=== PATIENT | male | born 1945 | race Caucasian/White ===

== ENCOUNTER 2023-09-08 11:30 | Emergency (ER) | payer MEDICARE, OTHER, SELFPAY ==
[2023-09-08 11:32] VITALS: BP 142/88
[2023-09-08 14:22] VITALS: BMI 29.3
[2023-09-08 15:00] VITALS: BP 142/83
[2023-09-08 15:15] LABS: % Basophils 0.3 % (0-2); % Immature Granulocytes 0.5 % (0-0.5); % Monocytes 8.6 % (1.7-9.3); % Neutrophils 74.6 % (42.2-75.2); Absolute Lymphocytes 1.3 10^3/uL (1.2-3.4); Absolute Monocytes 0.7 10^3/uL (0.1-0.6); Hematocrit 39.7 % (39.0-52.0); Hemoglobin 13.6 g/dL (13.0-18.0); Mean Corp Hgb Conc. 34.3 g/dL (33.0-37.0); Mean Corpuscular Volume 96.4 fL (80.0-94.0); Mean Platelet Volume 11.3 fL (7.4-10.4); Nucleated Red Blood Cells % 0 % (-); Platelet Count 238 10^3/uL (130-400); Red Blood Cell Count 4.12 10^6/uL (4.70-6.10); Red Cell Dist. Width 13.4 % (11.5-14.5)
--- NOTE | 2023-09-08 15:22 | ED.MUSCINJ ---
HPI-Injury
General
Chief Complaint: Musculo-Skeletal Complaint
Source: patient
Exam Limitations: none
Time Seen by Provider: 09/08/23 15:05
Travel History
Have you had any contact with someone who has COVID-19?: No
Do you have any symptoms of coronavirus? Fever > 100 degrees, chills, cough, shortness of breath, sore throat, loss of taste or smell, muscle aches, or headache?: No
History of Present Illness-Injury
Initial Injury comments:
77-year-old male on a baby aspirin presents complaining of right chest wall pain and referral from the urgent care. He fell early this morning in the bathroom and hit his right chest wall and the toilet. He notes pain to the right side worse with
deep breathing. He notes he is slightly short of breath. He was diagnosed with multiple rib fractures at the urgent care and was sent here for further evaluation. No abdominal pain. No hematuria. He did not hit his head. No other complaints at
this time
Past History
Past History
ED Past Medical History: Asthma, NIDDM and Psychiatric
ED Past Surgical History: Appendectomy, Cardiac (pacemaker) and Cholecystectomy
Social History
Tobacco: Former smoker
Alcohol: None
Drug: None
Personal:
Living: with family
Employment: Retired
Family History
Family History: Other
Phy Exam
Physical Exam
Physical Exam:
General: Well-appearing male no acute respiratory distress
HEENT: Normocephalic atraumatic neck is supple
Heart: Regular rate and rhythm no murmurs
Lungs: Breath sounds heard throughout slightly diminished on the right than the left
Extremities: No cyanosis or edema
Skin: Warm no rash
Injury Course
Orders/Labs/Results
Orders:
Orders
09/08/23 15:03
Complete Blood Count/With Diff Urgent
Comprehensive Metabolic Panel Urgent
Prothrombin Time Urgent
09/08/23 15:21
CT Chest With Iv Contrast Urgent
Comment:
Reason For Exam: right rib fractures
0.9% Sodium Chloride 500 ml [Nss] 500 ml IV BOLUS
Ketorolac [Toradol] 15 mg IV NOW STA
Abnormal Lab Results
09/08/23
15:03
RBC 4.12 L 10^6/uL
(4.70-6.10)
MCV 96.4 H fL
(80.0-94.0)
MCH 33.0 H pg
(27.0-31.0)
MPV 11.3 H fL
(7.4-10.4)
Absolute Monos (auto) 0.7 H 10^3/uL
(0.1-0.6)
Lymphocytes % 16.0 L %
(20.5-51.1)
BUN 21 H mg/dl
(9-20)
Glucose 154 H mg/dl
(70-99)
Total Protein 8.9 H g/dl
(6.3-8.2)
09/08/23 15:03
09/08/23 15:03
MDM/Problems Addressed
Differential Diagnosis Includes:
Right chest wall pain after a fall. I have visualized x-rays from the urgent care which demonstrate what looks like to mildly displaced rib fractures. No obvious pneumothorax on the x-rays. Concern for possible underlying injury such as
pneumothorax liver or kidney injury. Will obtain chest CT scan with IV contrast. Patient is in considerable pain. Will start with Toradol for pain relief.
*Critical Care Note
Total Time (30-74mins, 75-104mins- exclusive of procedures): Not Applicable
Update Note
Update Note:
CT scan of the chest was performed and demonstrates fractures of the seventh eighth ninth 10th and 11th ribs on the right side. No associated pneumothorax. Patient is walker dependent and is in considerable pain. Recommend keeping in hospital for
pain control and physical therapy however will have to be transferred to trauma center. Call placed to [facility]
6:13 PM. Spoke with trauma surgeon Dr. Melton who accepted the patient to [facility]'s ICU. Will arrange for transport
ED Attending Note
-
Portions of this chart may have been created with voice recognition software.� Occasional wrong word or��sound alike� substitutions may have occurred due to the inherent limitations of voice recognition software.
Discharge Plan
Departure
Patient Disposition: Acute Care Hospital
Date of Disposition: 09/08/23
Time of Disposition: 18:14
Discharge Problem:
Fracture, ribs
Prescriptions:
No Action
albuterol sulfate 2.5 MG/3 ML solution for nebulization
2.5 mg inhalation BID
olanzapine 5 MG tablet
5 mg PO HS
levothyroxine 75 MCG tablet
75 mcg PO DAILY
galantamine 8 MG tablet
8 mg PO BID
fluticasone propion-salmeterol [Advair HFA] 1 PUFF HFA aerosol inhaler
2 puff inhalation R BID
omega-3 fatty acids-fish oil 1 EACH capsule
1 ea PO DAILY
venlafaxine [Effexor XR] 37.5 MG capsule,extended release 24hr
75 mg PO HS
venlafaxine [Effexor XR] 150 MG capsule,extended release 24hr
150 mg PO DAILY
bupropion HCl 100 MG tablet sustained-release 12 hr
100 mg PO DAILY
diltiazem HCl 120 MG capsule,extended release 24hr
120 mg PO DAILY
Patient Comments:
hold for pulse less than 60, sbp<110
fludrocortisone 0.1 MG tablet
0.1 mg PO BID
lamotrigine 100 MG tablet
200 mg PO HS
lamotrigine 100 MG tablet
100 mg PO DAILY
rosuvastatin 10 MG tablet
10 mg PO DAILY
docusate sodium 100 MG capsule
200 mg PO DAILY@1999
albuterol sulfate 1 PUFF HFA aerosol inhaler
2 puff inhalation R Q4HPRN PRN (Reason: sob/wheezing)
meclizine 25 MG tablet
25 mg PO Q8HPRN PRN (Reason: vertigo) Qty: 0 0RF
Rx Instructions:
do not take more than 1 tablet q 8 hours
magnesium hydroxide 30 ML suspension
30 ml PO DAILYPRN PRN (Reason: on 3rd day if no bm)
clonazepam 0.5 MG tablet
0.5 mg PO HS
midodrine 5 MG tablet
5 mg PO BID@0800,1700
tamsulosin 0.4 MG capsule
0.4 mg PO DAILY Qty: 30 0RF
aspirin 81 MG tablet,chewable
81 mg PO DAILY 0RF
polyethylene glycol 3350 17 GRAMS powder in packet
17 grams PO DAILY Qty: 30 0RF
Referrals:
Peyman Moore, [Family Provider] -
Hospital Transfer
Other hospital: [facility]
I certify that the patient requires transfer: Yes
Discussed case with accepting physician: Dr. Melton
Reason for transfer: higher level of care and availability of service
Interventions
Interventions:
*Risk Screen - Suicide Last Done: 09/08/23 11:32
*General Assessment Last Done: 09/08/23 11:32
*Neglect/Abuse Screening Last Done: 09/08/23 11:32
*ED COVID-19 Vaccine History Last Done: 09/08/23 14:22
ED-Musculoskeletal Assessment Last Done: 09/08/23 14:24
[2023-09-08 15:23] LABS: INR 0.99; PT 13.1 Sec (11.4-14.6)
[2023-09-08 15:26] LABS: ALT (SGPT) 26 U/L (0-50); AST (SGOT) 44 U/L (17-59); Albumin 4.3 g/dl (3.5-5.0); Alkaline Phosphatase 85 U/L (38-126); Blood Urea Nitrogen 21 mg/dl (9-20); Calcium 10.1 mg/dl (8.4-10.2); Carbon Dioxide 29 mmol/L (22-30); Chloride 99 mmol/L (98-107); Estimated Creatinine Clearance 66 ml/min; Glucose 154 mg/dl (70-99); Potassium 5.1 mmol/L (3.5-5.1); Sodium 138 mmol/L (135-145); Total Bilirubin 0.6 mg/dl (0.2-1.3); Total Protein 8.9 g/dl (6.3-8.2); eGFR > 60.00
[2023-09-08] MEDS: TORADOL 15 MG IV (15:33)
[2023-09-08] MEDS: NSS 500 IV (15:34)
[2023-09-08 17:00] VITALS: BP 143/81
[2023-09-08 18:00] VITALS: BP 153/80
== END 2023-09-08 18:53 | disposition short-term general hospital (02) ==
LOC: EMR 11:30
PROVIDERS: EMERGENCY PHYSICIAN Emergency Medicine; FAMILY PHYSICIAN Family Medicine
DX: S22.41XA Multiple fractures of ribs, right side, initial encounter for closed fracture (principal); W19.XXXA Unspecified fall, initial encounter; Z87.891 Personal history of nicotine dependence
CPT/HCPCS: 99285; 96374; 96361; 71260; 80053; 85025; 85610; Q9967

== ENCOUNTER → 2023-10-20 07:29 | Outpatient (REF) | payer MEDICARE, OTHER, SELFPAY ==
[2023-10-20 08:49] LABS: % Basophils 0.5 % (0-2); % Eosinophils 1.1 % (0-6); % Lymphocytes 46.9 % (20.5-51.1); % Monocytes 8.6 % (1.7-9.3); % Neutrophils 42.9 % (42.2-75.2); Absolute Eosinophils 0.1 10^3/uL (0-0.7); Absolute Lymphocytes 2.1 10^3/uL (1.2-3.4); Absolute Monocytes 0.4 10^3/uL (0.1-0.6); Absolute Neutrophils 1.9 10^3/uL (1.4-6.5); Hemoglobin 13.6 g/dL (13.0-18.0); Mean Corp Hgb Conc. 32.4 g/dL (33.0-37.0); Mean Corpuscular Hgb 32.3 pg (27.0-31.0); Mean Corpuscular Volume 99.8 fL (80.0-94.0); Nucleated Red Blood Cells % 0 % (-); Platelet Count 209 10^3/uL (130-400); Red Blood Cell Count 4.21 10^6/uL (4.70-6.10); Red Cell Dist. Width 13.3 % (11.5-14.5); White Blood Cell Count 4.4 10^3/uL (4.8-10.8)
[2023-10-20 09:13] LABS: ALT (SGPT) 20 U/L (0-50); AST (SGOT) 28 U/L (17-59); Albumin 4.6 g/dl (3.5-5.0); Alkaline Phosphatase 127 U/L (38-126); Blood Urea Nitrogen 20 mg/dl (9-20); Calcium 9.7 mg/dl (8.4-10.2); Carbon Dioxide 23 mmol/L (22-30); Chloride 104 mmol/L (98-107); Glucose 153 mg/dl (70-99); HDL Cholesterol 56 mg/dl; LDL Cholesterol, Calculated 87 mg/dl; Potassium 4.6 mmol/L (3.5-5.1); Sodium 138 mmol/L (135-145); Total Bilirubin 0.5 mg/dl (0.2-1.3); Total Cholesterol 179 mg/dl (50-199); Triglyceride 184 mg/dl (10-149); Very Low Density Lipoprotein 36 mg/dl (0-30); eGFR > 60.00
[2023-10-20 09:22] LABS: Free T4 1.31 ng/dl (0.78-2.19)
[2023-10-20 09:37] LABS: TSH 3.37 uIU/ml (0.47-4.68)
[2023-10-20 11:13] LABS: Glycohemoglobin (HgbA1c) 6.1 % (4.0-5.6)
[2023-10-20 11:48] LABS: Urine Albumin Negative (Neg - Trace); Urine Bilirubin Negative (Negative); Urine Character Clear (Clear); Urine Color Yellow; Urine Glucose Negative (Negative); Urine Ketone Negative (Negative); Urine Leukocyte Trace (Negative); Urine Nitrite Negative (Negative); Urine Occult Blood Negative (Negative); Urine Specific Gravity 1.015 (<1.030); Urine Urobilinogen Negative (Neg - 1+)
[2023-10-20 11:56] LABS: Urine Bacteria Few (Negative); Urine Red Blood Cell 0-2 /HPF (0-2); Urine Squamous Cell 0-2 /LPF (Few); Urine White Cell 0-2 /HPF (0-5)
[2023-10-20 12:12] LABS: Microalbumin, Random Urine 2.1 mg/dl (0.6-1.7); Microalbumin/creatinine Ratio 18.6 mg/g
== END ==
LOC: HWLAB 07:29
PROVIDERS: ATTENDING PHYSICIAN Internal Medicine Cardiovascular Disease; FAMILY PHYSICIAN Family Medicine; REFERRING PHYSICIAN Psychiatry & Neurology Neurology
DX: E11.69 Type 2 diabetes mellitus with other specified complication (principal); E03.9 Hypothyroidism, unspecified; E78.00 Pure hypercholesterolemia, unspecified; G61.81 Chronic inflammatory demyelinating polyneuritis
CPT/HCPCS: 36415; 80053; 80061; 81003; 81015; 82043; 82570; 83036; 84439; 84443; 85025

== ENCOUNTER → 2024-01-05 10:51 | Outpatient (REF) | payer MEDICARE, OTHER, SELFPAY ==
[2024-01-05 15:40] LABS: % Basophils 0.5 % (0-2); % Eosinophils 0.2 % (0-6); % Immature Granulocytes 0.2 % (0-0.5); % Lymphocytes 49.6 % (20.5-51.1); % Monocytes 13.7 % (1.7-9.3); % Neutrophils 35.8 % (42.2-75.2); Absolute Monocytes 0.6 10^3/uL (0.1-0.6); Absolute Neutrophils 1.4 10^3/uL (1.4-6.5); Hematocrit 36.7 % (39.0-52.0); Hemoglobin 12.1 g/dL (13.0-18.0); Mean Corpuscular Hgb 31.9 pg (27.0-31.0); Mean Corpuscular Volume 96.8 fL (80.0-94.0); Mean Platelet Volume 11.1 fL (7.4-10.4); Nucleated Red Blood Cells % 0 % (-); Platelet Count 192 10^3/uL (130-400); Red Blood Cell Count 3.79 10^6/uL (4.70-6.10); Red Cell Dist. Width 13.5 % (11.5-14.5)
[2024-01-05 16:07] LABS: ALT (SGPT) 21 U/L (0-50); AST (SGOT) 31 U/L (17-59); Albumin 4.2 g/dl (3.5-5.0); Alkaline Phosphatase 83 U/L (38-126); Blood Urea Nitrogen 19 mg/dl (9-20); Calcium 9.7 mg/dl (8.4-10.2); Carbon Dioxide 27 mmol/L (22-30); Chloride 102 mmol/L (98-107); Glucose 119 mg/dl (70-99); Potassium 4.6 mmol/L (3.5-5.1); Sodium 138 mmol/L (135-145); Total Bilirubin 0.3 mg/dl (0.2-1.3); eGFR > 60.00
== END ==
LOC: HWLAB 10:51
PROVIDERS: ATTENDING PHYSICIAN Psychiatry & Neurology Neurology; FAMILY PHYSICIAN Family Medicine
DX: G61.81 Chronic inflammatory demyelinating polyneuritis (principal)
CPT/HCPCS: 36415; 80053; 85025

== ENCOUNTER → 2024-02-17 10:57 | Outpatient (REF) | payer MEDICARE, OTHER, SELFPAY ==
[2024-02-17 12:22] LABS: % Basophils 0.2 % (0-2); % Eosinophils 0.4 % (0-6); % Immature Granulocytes 0.4 % (0-0.5); % Lymphocytes 42.8 % (20.5-51.1); % Monocytes 10.1 % (1.7-9.3); % Neutrophils 46.1 % (42.2-75.2); Absolute Lymphocytes 2.2 10^3/uL (1.2-3.4); Absolute Monocytes 0.5 10^3/uL (0.1-0.6); Absolute Neutrophils 2.3 10^3/uL (1.4-6.5); Hematocrit 36.1 % (39.0-52.0); Hemoglobin 11.9 g/dL (13.0-18.0); Mean Platelet Volume 10.5 fL (7.4-10.4); Nucleated Red Blood Cells % 0 % (-); Platelet Count 326 10^3/uL (130-400); Red Blood Cell Count 3.72 10^6/uL (4.70-6.10); Red Cell Dist. Width 15.2 % (11.5-14.5); White Blood Cell Count 5.1 10^3/uL (4.8-10.8)
[2024-02-17 14:08] LABS: ALT (SGPT) 18 U/L (0-50); AST (SGOT) 27 U/L (17-59); Albumin 4.1 g/dl (3.5-5.0); Alkaline Phosphatase 103 U/L (38-126); Blood Urea Nitrogen 14 mg/dl (9-20); Calcium 9.6 mg/dl (8.4-10.2); Carbon Dioxide 26 mmol/L (22-30); Chloride 101 mmol/L (98-107); Glucose 106 mg/dl (70-99); Potassium 4.5 mmol/L (3.5-5.1); Sodium 136 mmol/L (135-145); Total Bilirubin 0.3 mg/dl (0.2-1.3); Total Protein 7.6 g/dl (6.3-8.2); eGFR > 60.00
== END ==
LOC: HWLAB 10:57
PROVIDERS: ATTENDING PHYSICIAN Psychiatry & Neurology Neurology; FAMILY PHYSICIAN Family Medicine
DX: G61.81 Chronic inflammatory demyelinating polyneuritis (principal)
CPT/HCPCS: 36415; 80053; 85025

== ENCOUNTER → 2024-02-23 09:27 | Outpatient (REF) | payer MEDICARE, OTHER, SELFPAY ==
[2024-02-23 12:12] LABS: Urine Albumin 1+ (Neg - Trace); Urine Bilirubin Negative (Negative); Urine Character Very Cloudy (Clear); Urine Color Yellow; Urine Glucose Negative (Negative); Urine Ketone Negative (Negative); Urine Leukocyte 2+ (Negative); Urine Nitrite Negative (Negative); Urine Occult Blood 4+ (Negative); Urine Specific Gravity 1.025 (<1.030); Urine Urobilinogen Negative (Neg - 1+)
[2024-02-23 12:55] LABS: Urine Bacteria Many (Negative); Urine Red Blood Cell >100 /HPF (0-2); Urine Squamous Cell 0-2 /LPF (Few); Urine White Cell >100 /HPF (0-5)
== END ==
LOC: HWLAB 09:27
PROVIDERS: ATTENDING PHYSICIAN Urology; FAMILY PHYSICIAN Family Medicine
DX: N39.0 Urinary tract infection, site not specified (principal)
CPT/HCPCS: 36415; 81003; 81015; 87077; 87086; 87186

== ENCOUNTER → 2024-03-17 13:05 | Outpatient (REF) | payer MEDICARE, OTHER, SELFPAY ==
[2024-03-17 16:11] LABS: % Basophils 0.4 % (0-2); % Immature Granulocytes 0.4 % (0-0.5); % Lymphocytes 46.5 % (20.5-51.1); % Monocytes 13.5 % (1.7-9.3); % Neutrophils 38.2 % (42.2-75.2); Absolute Eosinophils 0.1 10^3/uL (0-0.7); Absolute Lymphocytes 2.2 10^3/uL (1.2-3.4); Absolute Monocytes 0.7 10^3/uL (0.1-0.6); Absolute Neutrophils 1.8 10^3/uL (1.4-6.5); Hematocrit 35.6 % (39.0-52.0); Hemoglobin 11.8 g/dL (13.0-18.0); Mean Corp Hgb Conc. 33.1 g/dL (33.0-37.0); Mean Corpuscular Hgb 32.3 pg (27.0-31.0); Mean Corpuscular Volume 97.5 fL (80.0-94.0); Mean Platelet Volume 11.2 fL (7.4-10.4); Nucleated Red Blood Cells % 0 % (-); Platelet Count 278 10^3/uL (130-400); Red Blood Cell Count 3.65 10^6/uL (4.70-6.10); White Blood Cell Count 4.8 10^3/uL (4.8-10.8)
[2024-03-17 16:22] LABS: ALT (SGPT) 21 U/L (0-50); AST (SGOT) 31 U/L (17-59); Albumin 4.1 g/dl (3.5-5.0); Alkaline Phosphatase 96 U/L (38-126); Blood Urea Nitrogen 15 mg/dl (9-20); Calcium 9.8 mg/dl (8.4-10.2); Carbon Dioxide 25 mmol/L (22-30); Chloride 100 mmol/L (98-107); Glucose 102 mg/dl (70-99); Potassium 4.7 mmol/L (3.5-5.1); Sodium 140 mmol/L (135-145); Total Bilirubin 0.3 mg/dl (0.2-1.3); Total Protein 7.7 g/dl (6.3-8.2); eGFR > 60.00
== END ==
LOC: HWLAB 13:05
PROVIDERS: ATTENDING PHYSICIAN Internal Medicine Cardiovascular Disease; FAMILY PHYSICIAN Family Medicine
DX: I44.1 Atrioventricular block, second degree (principal)
CPT/HCPCS: 36415; 80053; 85025

== ENCOUNTER → 2024-05-03 12:17 | Outpatient (REF) | payer MEDICARE, OTHER, SELFPAY ==
[2024-05-03 17:18] LABS: Urine Albumin Negative (Neg - Trace); Urine Bilirubin Negative (Negative); Urine Character Slightly Cloudy (Clear); Urine Color Yellow; Urine Glucose Negative (Negative); Urine Ketone Negative (Negative); Urine Leukocyte 2+ (Negative); Urine Nitrite Negative (Negative); Urine Occult Blood Negative (Negative); Urine Urobilinogen Negative (Neg - 1+)
[2024-05-03 17:41] LABS: Urine Squamous Cell 0-2 /LPF (Few)
[2024-05-03 17:42] LABS: Urine Bacteria Many (Negative); Urine Red Blood Cell 0-2 /HPF (0-2); Urine White Cell 70-80 /HPF (0-5)
== END ==
LOC: HWLAB 12:17
PROVIDERS: ATTENDING PHYSICIAN Urology; FAMILY PHYSICIAN Family Medicine
DX: N39.0 Urinary tract infection, site not specified (principal)
CPT/HCPCS: 81003; 81015; 87077; 87086; 87186

== ENCOUNTER → 2024-06-10 07:39 | Outpatient (REF) | payer MEDICARE, OTHER, SELFPAY ==
[2024-06-10 09:21] LABS: % Basophils 0.3 % (0-2); % Eosinophils 1.1 % (0-6); % Immature Granulocytes 0.5 % (0-0.5); % Lymphocytes 20.3 % (20.5-51.1); % Monocytes 9.7 % (1.7-9.3); % Neutrophils 68.1 % (42.2-75.2); Absolute Eosinophils 0.1 10^3/uL (0-0.7); Absolute Lymphocytes 1.3 10^3/uL (1.2-3.4); Absolute Monocytes 0.6 10^3/uL (0.1-0.6); Absolute Neutrophils 4.5 10^3/uL (1.4-6.5); Hematocrit 35.3 % (39.0-52.0); Hemoglobin 11.6 g/dL (13.0-18.0); Mean Corp Hgb Conc. 32.9 g/dL (33.0-37.0); Mean Corpuscular Hgb 33.1 pg (27.0-31.0); Mean Corpuscular Volume 100.9 fL (80.0-94.0); Mean Platelet Volume 10.3 fL (7.4-10.4); Nucleated Red Blood Cells % 0 % (-); Platelet Count 240 10^3/uL (130-400); Red Cell Dist. Width 15.5 % (11.5-14.5); White Blood Cell Count 6.6 10^3/uL (4.8-10.8)
[2024-06-10 09:27] LABS: Urine Albumin Trace (Neg - Trace); Urine Bilirubin Negative (Negative); Urine Character Clear (Clear); Urine Color Yellow; Urine Glucose Negative (Negative); Urine Ketone Negative (Negative); Urine Leukocyte Negative (Negative); Urine Nitrite Negative (Negative); Urine Occult Blood Negative (Negative); Urine Specific Gravity 1.015 (<1.030); Urine Urobilinogen Negative (Neg - 1+)
[2024-06-10 09:36] LABS: ALT (SGPT) 21 U/L (0-50); AST (SGOT) 25 U/L (17-59); Albumin 4.4 g/dl (3.5-5.0); Alkaline Phosphatase 102 U/L (38-126); Blood Urea Nitrogen 19 mg/dl (9-20); Calcium 9.3 mg/dl (8.4-10.2); Carbon Dioxide 28 mmol/L (22-30); Chloride 102 mmol/L (98-107); Glucose 138 mg/dl (70-99); HDL Cholesterol 58 mg/dl; LDL Cholesterol, Calculated 65 mg/dl; Potassium 4.6 mmol/L (3.5-5.1); Sodium 143 mmol/L (135-145); Total Bilirubin 0.3 mg/dl (0.2-1.3); Total Cholesterol 147 mg/dl (50-199); Total Protein 7.5 g/dl (6.3-8.2); Triglyceride 120 mg/dl (10-149); Very Low Density Lipoprotein 24 mg/dl (0-30); eGFR > 60.00
[2024-06-10 09:53] LABS: Free T4 1.33 ng/dl (0.78-2.19)
[2024-06-10 10:07] LABS: TSH 3.78 uIU/ml (0.47-4.68)
[2024-06-10 10:36] LABS: Microalbumin, Random Urine 1.6 mg/dl (0.6-1.7); Microalbumin/creatinine Ratio 13.4 mg/g
[2024-06-10 11:25] LABS: Glycohemoglobin (HgbA1c) 5.8 % (4.0-5.6)
[2024-06-11 22:20] LABS: Lipoprotein a (Lp a) 126 mg/dL (<=29)
== END ==
LOC: HWLAB 07:39
PROVIDERS: ATTENDING PHYSICIAN Internal Medicine Cardiovascular Disease; FAMILY PHYSICIAN Family Medicine
DX: E78.00 Pure hypercholesterolemia, unspecified (principal); R73.09 Other abnormal glucose; E11.69 Type 2 diabetes mellitus with other specified complication; E03.9 Hypothyroidism, unspecified
CPT/HCPCS: 36415; 80053; 80061; 81003; 82043; 82570; 83036; 83695; 84439; 84443; 85025

== ENCOUNTER → 2024-09-02 10:47 | Outpatient (REF) | payer MEDICARE, OTHER, SELFPAY | LOC: HWRAD 10:47 | PROVIDERS: ATTENDING PHYSICIAN Family Medicine | DX: M54.12 Radiculopathy, cervical region (principal); S46.019A Strain of muscle(s) and tendon(s) of the rotator cuff of unspecified shoulder, initial encounter | CPT/HCPCS: 72125; 73200 ==

== ENCOUNTER 2024-09-16 16:11 | Inpatient (IN) | payer MEDICARE, OTHER, SELFPAY ==
[2024-09-16] VITALS (9 sets, daily range): BP systolic 91–154; BP diastolic 48–63; BMI 30.3; BMI 30.1
--- NOTE | 2024-09-16 13:24 | ED.GENMED ---
History of Present Illness
<Sue Helton PA-C - Last Filed: 09/16/24 19:06>
General
Chief Complaint: Breathing Problem
Source: patient
Exam Limitations: none
Time Seen by Provider: 09/16/24 13:12
History of Present Illness
History of Present Illness:
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 Patient reports intermittent
shaking episodes over the past 4 weeks. He spiked a fever of 101.4 yesterday. He again had a fever this morning and started to feel short of breath. He was hypoxic to 89% for EMS. He also has not urinated today. He denies any other specific
symptoms including chest pain, abdominal pain, vomiting, diarrhea.
Past History
<Sue Helton PA-C - Last Filed: 09/16/24 19:06>
Past History
ED Past Medical History: Asthma, NIDDM and Psychiatric
ED Past Surgical History: Appendectomy, Cardiac (pacemaker) and Cholecystectomy
Social History
Tobacco: Former smoker
Alcohol: None
Drug: None
Personal:
Living: with family
Employment: Retired
Family History
Family History: Other
Phy Exam
<Sue Helton PA-C - Last Filed: 09/16/24 19:06>
General Physical Exam
General Presentation: mild distress
General Skin: warm and dry
General Habitus: elderly
General Mental: alert
General Hydration: dry mucous membranes
ENT Exam
ENT Exam: normocephalic
Cardiovascular Exam
Cardiovascular Exam: regular rate/rhythm
Pulmonary Exam
Pulmonary Exam: no rales, no crackles, no rhonchi and other (Tachypnea with increased WOB noted. RR in the 30s. No wheezing or rales on lung exam.)
Respiratory Effort: tachypnea
Gastrointestinal Exam
Gastrointestinal Exam: non tender, soft and non distended
Neurological Exam
Neurological Exam: alert
Skin Exam
Skin Exam: normal color and warm/dry
Scores
<Sue Helton PA-C - Last Filed: 09/16/24 19:06>
Heart Failure Risk
Heart Failure Risk Score: Not Applicable
Sepsis
<Sue Helton PA-C - Last Filed: 09/16/24 19:06>
Sepsis Screening
Sepsis Assessment: Sepsis
Sepsis Screen
Sepsis Screen: Sepsis
Date: 09/16/24
Time: 19:01
Course
<Sue Helton PA-C - Last Filed: 09/16/24 19:06>
Orders/Labs/Results
Orders:
Orders
09/16/24 13:11
Electrocardiogram (*1) Urgent
Reason for Study: Shortness of Breath
EKG- Treatment ONCE
09/16/24 13:18
COVID-19 Antigen Urgent
Source: Nasal Swab
Complete Blood Count/With Diff Urgent
Comprehensive Metabolic Panel Urgent
Influenza A+B Rapid Molecular Urgent
RICHARD Source: Nasal Swab
Specimen Description:
09/16/24 13:22
Bladder Scan- Treatment ONCE
0.9% Sodium Chloride 500 ml [Nss] 500 ml IV BOLUS
09/16/24 13:23
CR Chest - 2 Views Urgent
Comment:
Reason For Exam: SOB
09/16/24 13:39
Ondansetron Injectable [Zofran] 4 mg IV NOW STA
09/16/24 13:53
Lactate Level [Lactic Acid] Urgent
Troponin I Urgent
Urinalysis Reflex To Culture Urgent
Date Specimen was Collected: 09/16/24
Time Specimen was Collected: 13:29
Urine Microscopic Reflex Cult Urgent
Venous Blood Gas Urgent
%Oxygen/Room Air: 2L NC
Blood Culture Q30M
RICHARD Source: Blood/Venous
Specimen Description:
Blood Culture Q30M
RICHARD Source: Blood/Venous
Specimen Description:
Urine Culture Urgent
RICHARD Source: U
Specimen Description:
Date Specimen was Collected: 09/16/24
Time Specimen was Collected: 13:29
09/16/24 14:30
0.9% Sodium Chloride 1000 ml [Nss] 1,000 ml IV BOLUS
09/16/24 14:53
0.9% Sodium Chloride 500 ml [Nss] 500 ml IV BOLUS
Cefepime HCl [Maxipime] 2,000 mg IV NOW STA
Vancomycin [Vancocin] 2,000 mg 0.9% Sodium Chloride 500 ml [Nss] 500 ml IV NOW
09/16/24 15:07
Acetaminophen [Tylenol] 650 mg PO NOW STA
09/16/24 15:57
Admit/Transfer Patient As Directed
Co-Sign Provider:
Level of Care: Inpatient admission
Assign to:: Medical/Surgical
Physician / Group: shobha
Diagnosis: sepsis pneumonia
Reason for Hospitalization: sepsis pneumonia
Expected length of stay greater than two midnights?: Yes
ELOS- Estimated Length of Stay in days: 2
I certify the patient meets the requirements for IP care: Yes
09/16/24 15:58
Code Status As Directed
Resuscitation Status: Do not resuscitate
Reached after discussion with pt or family/Healthcare POA: Yes
DNR Bracelet Application ONCE
PRN Pain Medication Management As Directed
May give lesser potent ordered pain med per pt: Yes
preference::
Protocol:: Medication orders for pain may be administered in a
manner that supports deferring to patient preference
when the pt is:
- Requesting an ordered lesser potent pain medication.
Least to most potent pain medications are defined
as: acetaminophen < NSAID < tramadol < opioids
(morphine, oxycodone, hydromorphone).
- Requesting a lesser dose of the same medication IF
ORDERED.
- Requesting a less intrusive route of administration
if both routes are prescribed by the provider (PO <
IV).
09/16/24 16:01
CT Chest With Iv Contrast Urgent
Comment:
Reason For Exam: sepsis source
Abnormal Lab Results
09/16/24 09/16/24
13:18 13:53
RBC 3.16 L 10^6/uL
(4.70-6.10)
Hgb 10.9 L g/dL
(13.0-18.0)
Hct 32.2 L %
(39.0-52.0)
MCV 101.9 H fL
(80.0-94.0)
MCH 34.5 H pg
(27.0-31.0)
RDW 16.0 H %
(11.5-14.5)
Abs Immat Gran (auto) 0.2 H 10^3/uL
(0-0.05)
Absolute Neuts (auto) 8.9 H 10^3/uL
(1.4-6.5)
Absolute Lymphs (auto) 0.9 L 10^3/uL
(1.2-3.4)
Immature Gran % 1.6 H %
(0-0.5)
Neutrophils % 86.8 H %
(42.2-75.2)
Lymphocytes % 9.0 L %
(20.5-51.1)
BUN 24 H mg/dl
(9-20)
Glucose 201 H mg/dl
(70-99)
Lactic Acid 4.3 H* mmol/L
(0.7-2.0)
Ur Occult Blood Reflex 2+ A
(Negative)
Leukocyte Esterase Rfl 1+ A
(Negative)
Urine RBC 7-10 A /HPF
(0-2)
Urine Albumin (Reflex) 2+ A
(Neg - Trace)
09/16/24 13:18
09/16/24 13:18
Vital Signs
Initial and Last Documented VS:
Initial Vital Signs
Temp Pulse Resp BP Pulse Ox
100.7 F H 97 21 154/59 91
09/16/24 13:07 09/16/24 13:07 09/16/24 13:07 09/16/24 13:07 09/16/24 13:07
Last Documented Vital Signs
Temp Pulse Resp BP Pulse Ox
100.7 F H 83 21 116/60 97
09/16/24 13:07 09/16/24 17:30 09/16/24 17:30 09/16/24 17:00 09/16/24 13:45
<Scott Damon, DO - Last Filed: 09/16/24 13:32>
Orders/Labs/Results
Orders:
Orders
09/16/24 13:11
Electrocardiogram (*1) Urgent
Reason for Study: Shortness of Breath
EKG- Treatment ONCE
09/16/24 13:18
COVID-19 Antigen Urgent
Source: Nasal Swab
Complete Blood Count/With Diff Urgent
Comprehensive Metabolic Panel Urgent
Influenza A+B Rapid Molecular Urgent
RICHARD Source: Nasal Swab
Specimen Description:
09/16/24 13:22
Bladder Scan- Treatment ONCE
0.9% Sodium Chloride 500 ml [Nss] 500 ml IV BOLUS
09/16/24 13:23
CR Chest - 2 Views Urgent
Comment:
Reason For Exam: SOB
09/16/24 13:39
Ondansetron Injectable [Zofran] 4 mg IV NOW STA
09/16/24 13:53
Lactate Level [Lactic Acid] Urgent
Troponin I Urgent
Urinalysis Reflex To Culture Urgent
Date Specimen was Collected: 09/16/24
Time Specimen was Collected: 13:29
Urine Microscopic Reflex Cult Urgent
Venous Blood Gas Urgent
%Oxygen/Room Air: 2L NC
Blood Culture Q30M
RICHARD Source: Blood/Venous
Specimen Description:
Blood Culture Q30M
RICHARD Source: Blood/Venous
Specimen Description:
Urine Culture Urgent
RICHARD Source: U
Specimen Description:
Date Specimen was Collected: 09/16/24
Time Specimen was Collected: 13:29
09/16/24 14:30
0.9% Sodium Chloride 1000 ml [Nss] 1,000 ml IV BOLUS
09/16/24 14:53
0.9% Sodium Chloride 500 ml [Nss] 500 ml IV BOLUS
Cefepime HCl [Maxipime] 2,000 mg IV NOW STA
Vancomycin [Vancocin] 2,000 mg 0.9% Sodium Chloride 500 ml [Nss] 500 ml IV NOW
09/16/24 15:07
Acetaminophen [Tylenol] 650 mg PO NOW STA
09/16/24 15:57
Admit/Transfer Patient As Directed
Co-Sign Provider:
Level of Care: Inpatient admission
Assign to:: Medical/Surgical
Physician / Group: shobha
Diagnosis: sepsis pneumonia
Reason for Hospitalization: sepsis pneumonia
Expected length of stay greater than two midnights?: Yes
ELOS- Estimated Length of Stay in days: 2
I certify the patient meets the requirements for IP care: Yes
09/16/24 15:58
Code Status As Directed
Resuscitation Status: Do not resuscitate
Reached after discussion with pt or family/Healthcare POA: Yes
DNR Bracelet Application ONCE
PRN Pain Medication Management As Directed
May give lesser potent ordered pain med per pt: Yes
preference::
Protocol:: Medication orders for pain may be administered in a
manner that supports deferring to patient preference
when the pt is:
- Requesting an ordered lesser potent pain medication.
Least to most potent pain medications are defined
as: acetaminophen < NSAID < tramadol < opioids
(morphine, oxycodone, hydromorphone).
- Requesting a lesser dose of the same medication IF
ORDERED.
- Requesting a less intrusive route of administration
if both routes are prescribed by the provider (PO <
IV).
09/16/24 16:01
CT Chest With Iv Contrast Urgent
Comment:
Reason For Exam: sepsis source
Abnormal Lab Results
09/16/24 09/16/24
13:18 13:53
RBC 3.16 L 10^6/uL
(4.70-6.10)
Hgb 10.9 L g/dL
(13.0-18.0)
Hct 32.2 L %
(39.0-52.0)
MCV 101.9 H fL
(80.0-94.0)
MCH 34.5 H pg
(27.0-31.0)
RDW 16.0 H %
(11.5-14.5)
Abs Immat Gran (auto) 0.2 H 10^3/uL
(0-0.05)
Absolute Neuts (auto) 8.9 H 10^3/uL
(1.4-6.5)
Absolute Lymphs (auto) 0.9 L 10^3/uL
(1.2-3.4)
Immature Gran % 1.6 H %
(0-0.5)
Neutrophils % 86.8 H %
(42.2-75.2)
Lymphocytes % 9.0 L %
(20.5-51.1)
BUN 24 H mg/dl
(9-20)
Glucose 201 H mg/dl
(70-99)
Lactic Acid 4.3 H* mmol/L
(0.7-2.0)
Ur Occult Blood Reflex 2+ A
(Negative)
Leukocyte Esterase Rfl 1+ A
(Negative)
Urine RBC 7-10 A /HPF
(0-2)
Urine Albumin (Reflex) 2+ A
(Neg - Trace)
09/16/24 13:18
09/16/24 13:18
Vital Signs
Initial and Last Documented VS:
Initial Vital Signs
Temp Pulse Resp BP Pulse Ox
100.7 F H 97 21 154/59 91
09/16/24 13:07 09/16/24 13:07 09/16/24 13:07 09/16/24 13:07 09/16/24 13:07
Last Documented Vital Signs
Temp Pulse Resp BP Pulse Ox
100.7 F H 83 21 116/60 97
09/16/24 13:07 09/16/24 17:30 09/16/24 17:30 09/16/24 17:00 09/16/24 13:45
[place];Sue Helton PA-C - Last Filed: 09/16/24 19:06>
MDM/Problems Addressed
Differential Diagnosis Includes:
78yoM here with fever since last night and SOB. Hx of CIPD. He was hypoxic to 89% prehospital. Temp 100.7 on arrival. Patient is ill-appearing and tachypneic. Mucous membranes appear dry. Differential diagnosis includes but is not limited to:
Pneumonia, viral illness, UTI, sepsis, dehydration
Initial ED plan: Check septic workup including lactate, blood cultures, COVID/flu swab, UA, and chest x-ray. Tylenol and IV fluid bolus ordered.
<Sue Helton PA-C - Last Filed: 09/16/24 19:06>
*EKG
Interpreted by ED Provider?: Yes
EKG Intrepretation Date: 09/16/24
Heart Rate: 95
Rate: normal
Rhythm: sinus
[place]: normal axis
Interval: first degree heart block
QRS Pattern: right bundle branch block
Ischemia: T-wave inversion (anterior leads)
*Critical Care Note
Total Time (30-74mins, 75-104mins- exclusive of procedures): Not Applicable
<Sue Helton PA-C - Last Filed: 09/16/24 19:06>
Update Note
Update Note:
White count normal at 10.2. Lactate elevated at 4.3. COVID/flu swab negative. Checks x-ray is clear without infiltrates. No overt signs of infection on urinalysis. Patient ultimately placed on mid flow nasal cannula. Work of breathing improved
on 6 L nasal cannula. IV cefepime and vancomycin ordered. Patient admitted for further evaluation and management.
ED Attending Note
<Sue Helton PA-C - Last Filed: 09/16/24 19:06>
-
Portions of this chart may have been created with voice recognition software.� Occasional wrong word or��sound alike� substitutions may have occurred due to the inherent limitations of voice recognition software.
<Scott Damon DO - Last Filed: 09/16/24 13:32>
ED Attending Note
Patient seen and examined by attending physician: Yes
I performed the substantive portion of visit, reviewed & personally made and approve the management plan that is documented in note by myself or REANNA.: Yes
ED Attending Note:
I have seen and evaluated the patient with a [id number] encounter. I have spoken to the advance practicer provider and involved in the medical history, the physical exam, medical decision making.
Evaluation and management service: agree unless noted differently below.
Results interpretation: agree unless noted differently below.
Focused HPI: 78-year-old male presenting with generalized weakness and shortness of breath. 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 However, patient now requiring supplemental
oxygen. Patient found to be febrile on arrival
Physical exam: Dry mucous membranes. Poor air exchange. Abdomen soft and nontender
Medical Decision Making: Given his fever, hypoxia and past medical history, will ultimately admit. Will start with chest x-ray and viral testing
Discharge Plan
Departure
Patient Disposition: Admit
Date of Disposition: 09/16/24
Time of Disposition: 15:10
Presentation/result/management discussed w/ accepting MD/DO: Hospitalist
Discharge Problem:
Acute hypoxic respiratory failure, Sepsis
Interventions
Interventions:
*Risk Screen - Suicide Last Done: 09/16/24 13:12
*General Assessment Last Done: 09/16/24 13:12
*Neglect/Abuse Screening Last Done: 09/16/24 13:12
*ED- Fall Risk Assessment Last Done: 09/16/24 13:12
ED- Cardiac Assessment Last Done: 09/16/24 13:12
ED- Pulmonary Assessment Last Done: 09/16/24 16:15
[2024-09-16] MEDS: NSS 500 IV ×2 (13:46→15:22)
[2024-09-16] MEDS: ZOFRAN 4 MG IV (13:47)
[2024-09-16 13:52] LABS: % Basophils 0.2 % (0-2); % Eosinophils 0.6 % (0-6); % Immature Granulocytes 1.6 % (0-0.5); % Monocytes 1.8 % (1.7-9.3); % Neutrophils 86.8 % (42.2-75.2); Absolute Eosinophils 0.1 10^3/uL (0-0.7); Absolute Immature Granulocytes 0.2 10^3/uL (0-0.05); Absolute Lymphocytes 0.9 10^3/uL (1.2-3.4); Absolute Monocytes 0.2 10^3/uL (0.1-0.6); Absolute Neutrophils 8.9 10^3/uL (1.4-6.5); Hematocrit 32.2 % (39.0-52.0); Hemoglobin 10.9 g/dL (13.0-18.0); Mean Corp Hgb Conc. 33.9 g/dL (33.0-37.0); Mean Corpuscular Hgb 34.5 pg (27.0-31.0); Mean Corpuscular Volume 101.9 fL (80.0-94.0); Nucleated Red Blood Cells % 0 % (-); Platelet Count 229 10^3/uL (130-400); Red Blood Cell Count 3.16 10^6/uL (4.70-6.10); White Blood Cell Count 10.2 10^3/uL (4.8-10.8)
[2024-09-16 14:06] LABS: ALT (SGPT) 19 U/L (0-50); AST (SGOT) 26 U/L (17-59); Albumin 4.4 g/dl (3.5-5.0); Alkaline Phosphatase 107 U/L (38-126); Blood Urea Nitrogen 24 mg/dl (9-20); Calcium 9.8 mg/dl (8.4-10.2); Carbon Dioxide 22 mmol/L (22-30); Chloride 99 mmol/L (98-107); Estimated Creatinine Clearance 56 ml/min; Glucose 201 mg/dl (70-99); Potassium 4.9 mmol/L (3.5-5.1); Sodium 136 mmol/L (135-145); Total Bilirubin 1.2 mg/dl (0.2-1.3); Total Protein 7.3 g/dl (6.3-8.2); eGFR 55.53
[2024-09-16 14:10] LABS: COVID-19 Antigen Negative (Negative)
[2024-09-16 14:10] LABS: Venous Blood Gas B.E. -1.4 mmol/L (-4 to +4); Venous Blood Gas HCO3 24.3 mmol/L (22-27); Venous Blood Gas O2 Sat % 51.1 %; Venous Blood Gas pCO2 44 mmHg (35-48); Venous Blood Gas pH 7.35 (7.32-7.43); Venous Blood Gas pO2 36 mmHg (30-50)
[2024-09-16 14:15] LABS: Urine Albumin 2+ (Neg - Trace); Urine Bilirubin Negative (Negative); Urine Character Clear (Clear); Urine Color Yellow; Urine Glucose Negative (Negative); Urine Ketone Negative (Negative); Urine Leukocyte 1+ (Negative); Urine Nitrite Negative (Negative); Urine Occult Blood 2+ (Negative); Urine Specific Gravity 1.015 (<1.030); Urine Urobilinogen Negative (Neg - 1+)
[2024-09-16 14:22] LABS: Lactic Acid 4.3 mmol/L (0.7-2.0)
[2024-09-16 14:30] LABS: Troponin I 0.021 ng/ml
[2024-09-16 14:52] LABS: Urine Mucus Many
[2024-09-16 14:54] LABS: Urine Amorphous Seen
[2024-09-16 14:57] LABS: Urine Squamous Cell 0-2 /LPF (Few)
[2024-09-16] MEDS: MAXIPIME 2000 MG IV ×2 (15:22→23:53)
[2024-09-16] MEDS: TYLENOL 650 MG PO ×2 (15:22→23:53)
[2024-09-16] MEDS: NSS 1000 IV ×2 (15:23→21:01)
--- NOTE | 2024-09-16 16:04 | HPS.HSE ---
Family Physician
-
Family Physician: Peyman Moore
Chief Complaint
-
fever
History of Present Illness
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 Patient got infusion of Vyvgart
yesterday which he gets every week and he has been on for the past 2 months.
Yesterday he had fever of 101.4 yesterday. He had fevers this morning started to feel short of breath and productive cough. He was hypoxemic to 89%. He did not urinate today. Denies chest pain or abdominal pain or vomiting or diarrhea. Denies
urinary symptoms.
He had a similar episode like this recently attributed to acute bronchitis.
Patient has had a few falls recently due to CIDP which manifest as weakness in his lower extremities for which he uses a walker.
He denies smoking or alcohol use.
Medical History
Past Medical History
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
Past Surgical History: Reports None
Social History
Tobacco: Non-smoker
Alcohol: None
Drug: None
Family History
Family History: Not pertinent
Allergies / Home Medications
Allergies reflects when Allergies were last updated in [facility].
Home Medications with original date entered in [facility]
Allergy/Medication List:
Allergies
Allergy/AdvReac Type Severity Reaction Status Date / Time
No Known Allergies Allergy Verified 09/16/24 13:07
Home Medications
bupropion HCl 100 mg tablet,12 hr sustained-release 100 mg PO DAILY Mental Health/Anxiety 05/18/21
fludrocortisone 0.1 mg tablet 0.1 mg PO DAILY Hormonal agent 05/18/21
galantamine 8 mg tablet 8 mg PO BID DEMENTIA 05/18/21
olanzapine 5 mg tablet 5 mg PO HS Mental Health/Anxiety 05/18/21
omega-3 fatty acids-fish oil 300 mg-1,000 mg capsule 1 ea PO DAILY High cholesterol 05/18/21
rosuvastatin 10 mg tablet 10 mg PO DAILY High cholesterol 05/18/21
venlafaxine 150 mg capsule,extended release 24 hr (Effexor XR) 150 mg PO DAILY Mental Health/Anxiety 05/18/21
clonazepam 0.5 mg tablet 0.5 mg PO HS Mental Health/Anxiety 08/16/21
aspirin 81 mg chewable tablet 81 mg PO DAILY 08/18/21
polyethylene glycol 3350 17 gram oral powder packet 17 grams PO DAILY ##30 08/18/21
tamsulosin 0.4 mg capsule 0.4 mg PO DAILY #30 caps 08/18/21
bisacodyl 5 mg tablet,delayed release (Dulcolax (bisacodyl)) 5 mg PO DAILY 09/16/24
clonazepam 0.5 mg tablet 0.5 mg PO DAILYPRN PRN anxiety 09/16/24
efgartigimod oleg 1008 bn-[id number]-[id number] 11,200 unit/5.6 mL subcut soln (Vyvgart Hytrulo) 5.6 ml SC TH 09/16/24
ibuprofen 200 mg tablet (Advil) 400 mg PO Q6HPRN PRN mild pain 09/16/24
lamotrigine 200 mg tablet 200 mg PO BID 09/16/24
mirabegron 50 mg tablet,extended release 24 hr (Myrbetriq) 50 mg PO DAILY 09/16/24
potassium chloride 20 mEq tablet,extended release 20 meq PO Q48H 09/16/24
psyllium husk 3.4 gram/5.4 gram oral powder (Metamucil) 1 tbsp PO DAILY 09/16/24
therapeutic multivitamin 1 tab PO DAILY 09/16/24
venlafaxine 75 mg capsule,extended release 24 hr 75 mg PO HS 09/16/24
Review of Systems
-
History Source: Patient
A 12 point ROS was completed and negative except as noted: Yes
Constitutional: Reports See HPI
EENT: Reports No Symptoms
Respiratory: Reports See HPI
Cardiac: Reports No Symptoms
Abdomen/GI: Reports No Symptoms
: Reports No Symptoms
Musculoskeletal: Reports No Symptoms
Skin: Reports No Symptoms
Neurological: Reports No Symptoms
Endocrine: Reports No Symptoms
Hematologic/Lymphatic: Reports No Symptoms
Psych: Reports No Symptoms
Physical Exam
Vital Signs
Vital Signs
Temp Pulse Resp BP Pulse Ox
100.7 F H 108 23 154/59 97
09/16/24 13:07 09/16/24 13:45 09/16/24 13:45 09/16/24 13:10 09/16/24 13:45
Physical Exam
General: Well Developed, Well Nourished and No Apparent Distress
HEENT: NormoCephalic, Moist mucous membranes and Atraumatic
Respiratory: Clear
Cardiac: S1/S2 and Regular Rhythm; No Murmur or Rub
GI: Soft, Non Tender, Non Distended and Normal Bowel Sounds; No Organomegaly
Rectal: Deferred by Provider
Musculoskeletal: No Clubbing, No Cyanosis and No Edema
Skin: No Rash
Neuro: Nonfocal/grossly intact
Laboratory Results
-
09/16/24 13:18
09/16/24 13:18
Laboratory Results
Lactic Acid 4.3 mmol/L (0.7-2.0) H* 09/16/24 13:53
Total Bilirubin 1.2 mg/dl (0.2-1.3) 09/16/24 13:18
AST 26 U/L (17-59) 09/16/24 13:18
ALT 19 U/L (0-50) 09/16/24 13:18
Alkaline Phosphatase 107 U/L (38-126) 09/16/24 13:18
Troponin I 0.021 ng/ml 09/16/24 13:53
Data Reviewed
-
Lab Data: Labs Reviewed by me
Old Records: Reviewed
Impression/Plan
-
IMPRESSION:
PLAN:
# Sepsis (fever, tachycardia, tachypnea) suspected pneumonia versus acute bronchitis
-Chest x-ray negative
-COVID and flu negative
-Check blood cultures
-IV fluids
-Check CT chest
-Vancomycin/cefepime
Chronic inflammatory demyelinating polyradiculoneuropathy
-On Vyvgart infusions received yesterday
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
-Continue fludrocortisone
Essential hypertension
Hypothyroidism
Obstructive sleep apnea
Chronic anemia
-Stable
Bipolar disorder
-Continue bupropion, clonazepam, lamotrigine, olanzapine, venlafaxine, galantamine
Hyperlipidemia
-Continue statin
BPH
-continue tamsulosin
Constipation
-Continue Metamucil, MiraLAX
DNR/DNI
DVT prophylaxis�heparin
Regular diet
[2024-09-16] MEDS: VANCOCIN 540 MG IV (16:07)
--- NOTE | 2024-09-16 19:45 | PTCARENOTE ---
Pt arrived from the ED via stretcher. Patient c/o light headedness and weakness. AAOx3, VSS. On 6L NC. SOB at rest and exertion. Pt pulled over onto bed by staff. Oriented to the room, call bel is within reach.
--- NOTE | 2024-09-16 20:20 | PHA.VAN.IN ---
Assessment
- Assessment
Renal Function: Appears elevated from baseline (06/10/24 BASELINE SCR: 1.0)
Concomitant Antimicrobials: CEFEPIME
- Previous Dosing Experience
Previous Regimen: NONE
Plan
- Plan
Initial / Loading Dose: 2GM
Maintenance Regimen: DOSING BY RANDOM LEVELS
Monitoring: RANDOM VANCOMYCIN LEVEL 09/17/24 AM
Pharmacokinetics Vancomycin I
- -
Patient Age: 78
Patient Sex: Male
Vancomycin Day #: 1
Indication: Pulmonary/Respiratory
Requesting Provider: HOWARD
Height / Weight:
Height 6 ft
Actual Weight 100.698 kg
Pertinent Past Medical History: CIDP
- Vital Signs / Lab Results
Temp Pulse Resp BP Pulse Ox
99 F 83 18 91/48 95
09/16/24 19:54 09/16/24 19:54 09/16/24 19:54 09/16/24 19:54 09/16/24 19:54
Lab Results - Hematology
09/16/24
13:18
WBC 10.2
Lab Results - Chemistry
09/16/24
13:18
BUN 24 H
Creatinine 1.3
Estimated Creat Clear 56
Albumin 4.4
09/16/24 09/16/24
13:53 18:54
Lactic Acid 4.3 H* 1.0
Lab Results - Urine
09/16/24
13:53
Urine Nitrite (Reflex) Negative
Leukocyte Esterase Rfl 1+ A
Urine WBC (Reflex) 3-5
Ur Squamous Epith Cells 0-2
Microbiology Results
09/16/24 13:18 Influenza Types A & B (MAGGIE) - Final
Nasal Swab Negative for Influenza A & B, NAAT
Negative results must be combined with clinical observations
and patient history.
Nucleic Acid Amplification test (NAAT)performed on the
[facility] [employer] platform.
[2024-09-16] MEDS: HEPARIN 5000 UNITS SC (21:01)
[2024-09-16] MEDS: LAMICTAL 200 MG PO (21:02)
[2024-09-16] MEDS: KLONOPIN 0.5 MG PO (21:02)
[2024-09-16] MEDS: RAZADYNE 8 MG PO (21:03)
[2024-09-16] MEDS: EFFEXOR XR 75 MG PO (21:03)
[2024-09-16] MEDS: ZYPREXA 5 MG PO (21:04)
[2024-09-16] MEDS: STERILE WATER FOR INJECTION 10 ML IV (23:53)
[2024-09-17] MEDS: NSS 1000 IV ×2 (06:19→15:51)
[2024-09-17 07:50] VITALS: BP 104/51
[2024-09-17] MEDS: FLOMAX 0.4 MG PO (08:54)
[2024-09-17] MEDS: LOW STRENGTH ASPIRIN 81 MG PO (08:54)
[2024-09-17] MEDS: FLORINEF 0.1 MG PO (08:54)
[2024-09-17] MEDS: WELLBUTRIN SR (12 hour sustained release) 100 MG PO (08:54)
[2024-09-17] MEDS: RAZADYNE 8 MG PO ×2 (08:54→20:03)
[2024-09-17] MEDS: DULCOLAX 5 MG PO (08:54)
[2024-09-17] MEDS: THERAGRAN 1 TABLET PO (08:55)
[2024-09-17] MEDS: EFFEXOR XR 150 MG PO (08:55)
[2024-09-17] MEDS: MIRALAX 17 GRAMS PO (08:55)
[2024-09-17] MEDS: LAMICTAL 200 MG PO ×2 (08:55→20:03)
[2024-09-17] MEDS: CRESTOR 10 MG PO (08:55)
[2024-09-17] MEDS: METAMUCIL, KONSYL 1 PACKET PO (08:55)
[2024-09-17] MEDS: HEPARIN 5000 UNITS SC ×2 (09:28→20:58)
[2024-09-17] MEDS: KCL PO (09:35)
--- NOTE | 2024-09-17 09:41 | PTCARENOTE ---
Patient OOB to chair with assist x2 and walker. Patient tolerated sitting in chair for 3 hours. Patient concerned that he was not voiding enough, because there was 200ml in urinal. RN explained to patient his attends are soaked and he urinated on
the floor. Patient bladder scanned for 0ml. Patient does not feel like he has to void and denies any discomfort or bloating.
[2024-09-17 09:53] LABS: Vancomycin Random 10.1 ug/ml
[2024-09-17 10:17] LABS: % Basophils 0.2 % (0-2); % Eosinophils 1.1 % (0-6); % Immature Granulocytes 2.3 % (0-0.5); % Lymphocytes 10.3 % (20.5-51.1); % Monocytes 9.5 % (1.7-9.3); % Neutrophils 76.6 % (42.2-75.2); Absolute Eosinophils 0.1 10^3/uL (0-0.7); Absolute Immature Granulocytes 0.3 10^3/uL (0-0.05); Absolute Lymphocytes 1.2 10^3/uL (1.2-3.4); Absolute Monocytes 1.1 10^3/uL (0.1-0.6); Absolute Neutrophils 9.2 10^3/uL (1.4-6.5); Hematocrit 23.4 % (39.0-52.0); Hemoglobin 7.9 g/dL (13.0-18.0); Mean Corp Hgb Conc. 33.8 g/dL (33.0-37.0); Mean Corpuscular Hgb 34.8 pg (27.0-31.0); Mean Corpuscular Volume 103.1 fL (80.0-94.0); Nucleated Red Blood Cells % 0 % (-); Red Blood Cell Count 2.27 10^6/uL (4.70-6.10); Red Cell Dist. Width 16.6 % (11.5-14.5)
[2024-09-17 10:37] LABS: ALT (SGPT) 17 U/L (0-50); AST (SGOT) 31 U/L (17-59); Albumin 3.4 g/dl (3.5-5.0); Alkaline Phosphatase 97 U/L (38-126); Blood Urea Nitrogen 32 mg/dl (9-20); Calcium 8.2 mg/dl (8.4-10.2); Carbon Dioxide 22 mmol/L (22-30); Chloride 102 mmol/L (98-107); Estimated Creatinine Clearance 59 ml/min; Glucose 134 mg/dl (70-99); Potassium 4.2 mmol/L (3.5-5.1); Sodium 134 mmol/L (135-145); Total Bilirubin 1.2 mg/dl (0.2-1.3); Total Protein 5.9 g/dl (6.3-8.2); eGFR > 60.00
[2024-09-17] MEDS: TYLENOL 650 MG PO (10:41)
[2024-09-17 10:52] LABS: Mean Platelet Volume 10.3 fL (7.4-10.4); Platelet Count 163 10^3/uL (130-400)
[2024-09-17] MEDS: MAXIPIME 2000 MG IV ×2 (12:01→23:25)
[2024-09-17] MEDS: STERILE WATER FOR INJECTION 10 ML IV ×2 (12:01→23:24)
--- NOTE | 2024-09-17 12:03 | W.PN.HOSP.TC ---
Today's Communication/Plan
-
f/u blood cs report
d/c vanc
wean off o2
Assessment / Plan
Assessment / Plan
# Sepsis
Pneumonia in immunocompromised patient
Gram negative bacteremia
-Chest x-ray negative
-COVID and flu negative
-CT Chest images reviewed personally, report as above
-Blood culture both sets growing gram-negative bacilli
-Discontinue vancomycin, maintain on cefepime for now
# Acute hypoxic respiratory failure
-Wean off oxygen as possible
#Chronic inflammatory demyelinating polyradiculoneuropathy
-On Vyvgart infusions received yesterday
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
-Continue fludrocortisone
Essential hypertension
Hypothyroidism
Obstructive sleep apnea
Chronic anemia-Stable
Bipolar disorder-Continue bupropion, clonazepam, lamotrigine, olanzapine, venlafaxine, galantamine
Hyperlipidemia-Continue statin
BPH-continue tamsulosin
Constipation-Continue Metamucil, MiraLAX
DNR/DNI
DVT prophylaxis�heparin
Total time spent : 54 mins
Anticipated Discharge: 24 - 48 hours
Subjective/Interval History
-
Date of Service: September 17, 2024
have productive cough
requiring 5L o2 through NC
Objective Data
-
Labs:
Laboratory Results
09/17/24
09:15
WBC 12.0 H
Hgb 7.9 L D
Hct 23.4 L
Plt Count 163 D
Sodium 134 L
Potassium 4.2
Chloride 102
Carbon Dioxide 22
BUN 32 H
Creatinine 1.1
Glucose 134 H
Calcium 8.2 L D
Total Bilirubin 1.2
AST 31
ALT 17
Alkaline Phosphatase 97
Vital Signs:
Vital Signs
Temp Pulse Resp BP Pulse Ox
99 F 81 20 104/51 95
09/17/24 07:50 09/17/24 07:50 09/17/24 07:50 09/17/24 07:50 09/17/24 07:50
I&O
09/16/24 09/17/24 09/18/24
06:59 06:59 07:59
Intake Total 1680 / 1680
Output Total 200 / 200
Balance 1480 / 1480
Review of Systems
-
Respiratory: Reports No Symptoms
Cardiac: Reports No Symptoms
Abdomen/GI: Reports No Symptoms
Physical Exam
-
General: No Apparent Distress and Comfortable
HEENT: Oxygen (5L)
Respiratory: Rhonchi
Cardiac: Regular Rhythm and S1/S2; Negative Murmur or Rub
GI: Soft, Nontender and Nondistended
Musculoskeletal: No Edema
Neuro: Awake, Alert, Oriented, No Motor Deficits and Nonfocal/Grossly Intact
Psych: Calm
--- NOTE | 2024-09-17 12:42 | PTCARENOTE ---
Family concerned that patient is aspirating. This RN has not seen any signs of aspiration at present. Speech consulted per family request.
--- NOTE | 2024-09-17 14:17 | CM ---
Initial assessment was completed with pt at bedside.
Pt is an 78yr old admitted with Sepsis PNE
At baseline, pt lives with his in a 1 level home with 0 steps to enter.
Pt does not drive. Pt needs aide with transfers and ADLs at baseline.
Pt uses a shower chair, RW, and raised toilet with bars.
Pt [facility] PT[facility]OT [facility] and has been to [facility] in [place] in the past.
Pt would like to dc [facility] if appropriate.
Pt is currently on O2 which is new.
PCP; Peyman Moore
Pharm; [facility]
PLAN; [facility]
[2024-09-17 15:11] VITALS: BP 100/48
[2024-09-17 20:05] VITALS: BP 128/57
[2024-09-17] MEDS: EFFEXOR XR 75 MG PO (21:01)
[2024-09-17] MEDS: KLONOPIN 0.5 MG PO (21:02)
[2024-09-17] MEDS: ZYPREXA 5 MG PO (21:02)
[2024-09-17 23:06] VITALS: BP 106/52
[2024-09-18] MEDS: NSS 1000 IV (01:24)
[2024-09-18] MEDS: SYNTHROID 75 MCG PO (05:22)
[2024-09-18] MEDS: DUONEB 3 ML INH ×2 (05:44→20:16)
[2024-09-18 05:58] LABS: Hematocrit 22.7 % (39.0-52.0); Hemoglobin 7.5 g/dL (13.0-18.0); Mean Corpuscular Hgb 33.8 pg (27.0-31.0); Mean Corpuscular Volume 102.3 fL (80.0-94.0); Mean Platelet Volume 10.4 fL (7.4-10.4); Platelet Count 152 10^3/uL (130-400); Red Blood Cell Count 2.22 10^6/uL (4.70-6.10); Red Cell Dist. Width 16.1 % (11.5-14.5); White Blood Cell Count 10.5 10^3/uL (4.8-10.8)
[2024-09-18 06:23] LABS: Blood Urea Nitrogen 27 mg/dl (9-20); Calcium 8.2 mg/dl (8.4-10.2); Carbon Dioxide 22 mmol/L (22-30); Chloride 102 mmol/L (98-107); Estimated Creatinine Clearance 65 ml/min; Glucose 128 mg/dl (70-99); Potassium 4.1 mmol/L (3.5-5.1); Sodium 134 mmol/L (135-145); eGFR > 60.00
[2024-09-18 07:26] VITALS: BP 124/52
[2024-09-18] MEDS: LOW STRENGTH ASPIRIN 81 MG PO (08:45)
[2024-09-18] MEDS: RAZADYNE 8 MG PO ×2 (08:45→19:54)
[2024-09-18] MEDS: LAMICTAL 200 MG PO ×2 (08:45→19:54)
[2024-09-18] MEDS: METAMUCIL, KONSYL 1 PACKET PO (08:46)
[2024-09-18] MEDS: CRESTOR 10 MG PO (08:46)
[2024-09-18] MEDS: FLORINEF 0.1 MG PO (08:46)
[2024-09-18] MEDS: LINZESS 72 MCG PO (08:46)
[2024-09-18] MEDS: DULCOLAX 5 MG PO (08:46)
[2024-09-18] MEDS: THERAGRAN 1 TABLET PO (08:46)
[2024-09-18] MEDS: FLOMAX 0.4 MG PO (08:46)
[2024-09-18] MEDS: WELLBUTRIN SR (12 hour sustained release) 100 MG PO (08:46)
[2024-09-18] MEDS: EFFEXOR XR 150 MG PO (08:46)
[2024-09-18] MEDS: MIRALAX 17 GRAMS PO (08:47)
[2024-09-18] MEDS: HEPARIN 5000 UNITS SC (08:53)
--- NOTE | 2024-09-18 12:41 | W.PN.HOSP.TC ---
Today's Communication/Plan
-
f/u hbg and FOBT
check iron/b12/folate
f/u blood cs report
check probnp
lasix 20mg x1
stop IVF
continue abx
Assessment / Plan
Assessment / Plan
# Sepsis - POA
Klebsiella bacteremia
Pneumonia in immunocompromised patient
-Chest x-ray negative
-COVID and flu negative
-CT Chest images reviewed personally, report as above
-Blood culture both sets growing Klebsiella Oxytoca, susceptibility report pending.
-Discontinue vancomycin, maintain on cefepime for now
# Acute hypoxic respiratory failure
-Wean off oxygen as possible
-stop further IVF
-provide dose of iv lasix 20mgx 1 - check pro-bnp. last TTE in showed prsereved EF
#Chronic inflammatory demyelinating polyradiculoneuropathy
-On Vyvgart infusions received yesterday
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
-Continue fludrocortisone
# Macrocytic Anemia
-Denies of having any GIB/PUD h/o
-check b12/folate
-component of dilution?
-FOBT ordered
Essential hypertension
Hypothyroidism
Obstructive sleep apnea
Chronic anemia-Stable
Bipolar disorder-Continue bupropion, clonazepam, lamotrigine, olanzapine, venlafaxine, galantamine
Hyperlipidemia-Continue statin
BPH-continue tamsulosin
Constipation-Continue Metamucil, MiraLAX
DNR/DNI
DVT prophylaxis�heparin
Total time spent : 52 mins
Anticipated Discharge: 24 - 48 hours
Subjective/Interval History
-
Date of Service: September 18, 2024
feeling same
remains on o2 through NC 5L
Objective Data
-
Labs:
Laboratory Results
09/18/24
04:20
WBC 10.5
Hgb 7.5 L
Hct 22.7 L
Plt Count 152
Sodium 134 L
Potassium 4.1
Chloride 102
Carbon Dioxide 22
BUN 27 H
Creatinine 1.0
Glucose 128 H
Calcium 8.2 L
Vital Signs:
Vital Signs
Temp Pulse Resp BP Pulse Ox
98.6 F 82 18 124/52 96
09/18/24 07:26 09/18/24 07:26 09/18/24 07:26 09/18/24 07:26 09/18/24 08:00
I&O
09/17/24 09/18/24 09/19/24
05:59 06:59 06:59
Intake Total
Output Total
Balance
Review of Systems
-
Respiratory: Reports No Symptoms
Cardiac: Reports No Symptoms
Abdomen/GI: Reports No Symptoms
Physical Exam
-
General: No Apparent Distress and Comfortable
HEENT: Oxygen (5L)
Respiratory: Rhonchi
Cardiac: Regular Rhythm and S1/S2; Negative Murmur or Rub
GI: Soft, Nontender and Nondistended
Musculoskeletal: No Edema
Neuro: Awake, Alert, Oriented, No Motor Deficits and Nonfocal/Grossly Intact
Psych: Calm
[2024-09-18] MEDS: STERILE WATER FOR INJECTION 10 ML IV (13:02)
[2024-09-18] MEDS: MAXIPIME 2000 MG IV (13:02)
[2024-09-18] MEDS: LASIX 20 MG IV (13:03)
[2024-09-18 13:40] VITALS: BP 121/58; BP 125/56; PULSE 77; O2SAT 93
[2024-09-18 13:45] VITALS: BP 121/58; BP 125/56; PULSE 79; O2SAT 94
[2024-09-18 13:49] LABS: NT-proBNP 1990 pg/ml
[2024-09-18] MEDS: NSS IV (14:23)
[2024-09-18 15:07] VITALS: BP 116/51
[2024-09-18 20:03] VITALS: BP 138/63
[2024-09-18] MEDS: ZYPREXA 5 MG PO (21:06)
[2024-09-18] MEDS: EFFEXOR XR 75 MG PO (21:06)
[2024-09-18] MEDS: KLONOPIN 0.5 MG PO (21:06)
[2024-09-18] MEDS: DULCOLAX 10 MG RECTAL (21:17)
--- NOTE | 2024-09-18 23:10 | PTCARENOTE ---
Addendum entered by Kika Perry 09/19/24 06:14:
Pt with audible expiratory wheezing when getting bath with activity, pulse ox 90% 6 L midflow, head/neck purple/red discoloration. Sat pt up allowed to recover pulse ox increased 94%. Pt stating he 'feels much better'. Respiratory notified for
treatment.
Original Note:
Pt with SOB/audible expiratory wheezing, pulse ox 98% 6 L midflow, pt also stating dizziness since 3 pm. VSS BP 138/63 HR 70-80s RR 28. Pt given neb treatment with relief. Stating dizziness has decreased. Pt stating no BM for 1.5 weeks. HGB
noted, house RN MATERNAL CHILD notified. Order to hold SQ heparin. Given dulcolax suppository. Care is ongoing.
[2024-09-18] MEDS: HEPARIN SC (23:41)
[2024-09-18 23:55] VITALS: BP 119/57
[2024-09-19] MEDS: MAXIPIME 2000 MG IV ×3 (00:37→23:54)
[2024-09-19] MEDS: STERILE WATER FOR INJECTION 10 ML IV ×3 (00:37→23:54)
--- NOTE | 2024-09-19 00:51 | W.PN.UPDATE ---
Addendum entered and electronically signed by YONATHAN Castaneda 09/19/24 06:31:
pt without bm x 1.5 weeks despite many various modalities(linzess, dulcolax, miralax, metamucil). Due to his CIDP and Vyvgart constipation has been an ongoing issue for him. Does see GI outpt. Abd large and distended. Will order abd xray. Consider
GI consult. Pt without N/V. But large abd not helping his resp status.
PT also with occasioal wheezes. Did hav and episode of more hypoxia when RN laid him flat this am. Recovered when sitting up
Original Note:
Update Note
Progress Note Update
will hold heparin sq due to low hh. No signs of bleeding observed.
[2024-09-19 04:53] LABS: Hematocrit 21.5 % (39.0-52.0); Hemoglobin 7.3 g/dL (13.0-18.0); Mean Corpuscular Hgb 34.1 pg (27.0-31.0); Mean Corpuscular Volume 100.5 fL (80.0-94.0); Mean Platelet Volume 10.2 fL (7.4-10.4); Platelet Count 155 10^3/uL (130-400); Red Blood Cell Count 2.14 10^6/uL (4.70-6.10); Red Cell Dist. Width 15.6 % (11.5-14.5); White Blood Cell Count 6.2 10^3/uL (4.8-10.8)
[2024-09-19 05:16] LABS: Blood Urea Nitrogen 18 mg/dl (9-20); Calcium 8.5 mg/dl (8.4-10.2); Carbon Dioxide 25 mmol/L (22-30); Chloride 101 mmol/L (98-107); Estimated Creatinine Clearance 81 ml/min; Glucose 143 mg/dl (70-99); Potassium 3.6 mmol/L (3.5-5.1); Sodium 134 mmol/L (135-145); eGFR > 60.00
[2024-09-19] MEDS: SYNTHROID 75 MCG PO (05:43)
[2024-09-19] MEDS: DUONEB 3 ML INH (06:18)
[2024-09-19 08:19] VITALS: BP 135/59
[2024-09-19] MEDS: LINZESS 72 MCG PO (08:51)
[2024-09-19] MEDS: MIRALAX 17 GRAMS PO (08:51)
[2024-09-19] MEDS: WELLBUTRIN SR (12 hour sustained release) 100 MG PO (08:51)
[2024-09-19] MEDS: KCL 20 MEQ PO (08:51)
[2024-09-19] MEDS: FLORINEF 0.1 MG PO (08:51)
[2024-09-19] MEDS: DULCOLAX 5 MG PO (08:51)
[2024-09-19] MEDS: EFFEXOR XR 150 MG PO (08:52)
[2024-09-19] MEDS: METAMUCIL, KONSYL 1 PACKET PO (08:52)
[2024-09-19] MEDS: FLOMAX 0.4 MG PO (08:52)
[2024-09-19] MEDS: THERAGRAN 1 TABLET PO (08:52)
[2024-09-19] MEDS: LAMICTAL 200 MG PO ×2 (08:52→20:17)
[2024-09-19] MEDS: RAZADYNE 8 MG PO ×2 (08:53→20:17)
[2024-09-19] MEDS: CRESTOR 10 MG PO (08:53)
[2024-09-19] MEDS: LOW STRENGTH ASPIRIN 81 MG PO (08:53)
--- NOTE | 2024-09-19 11:42 | CM ---
Chart reviewed. Patient is being recommended for acute rehab.
CM spoke w/ patient's daughter, Lorena, bedside, patient was off floor for echo. Lorena stated patient may be reluctant to go to rehab but her mother won't be able to manage patient at home. Lorena is familiar w/ acute rehab being a more intense
therapy as she works at [employer], and doesn't believe patient can tolerate 3-4 hours of therapy per day but agreeable for [facility] referral and for them to assess patient on appropriateness for acute vs skilled rehab.
CM placed [facility] referral in [facility]. CM spoke w/ El who will review referral
Plan: Acute rehab vs SNF
[2024-09-19 12:30] LABS: Folate 18.8 ng/ml (2.76-20)
[2024-09-19 13:28] LABS: Vitamin B12 890 pg/ml (239-931)
--- NOTE | 2024-09-19 15:42 | W.PN.HOSP.TC ---
Today's Communication/Plan
-
iv lasix
wean off o2
tsh w/ reflex free t4, monitor hgb
enema - monitor bms, NPO for now
Assessment / Plan
Assessment / Plan
# Sepsis - POA
# Klebsiella bacteremia
ECHO with no obvious vegetation, has hx of urine with Klebsiella oxytoca
-Chest x-ray negative
-COVID and flu negative
-CT Chest images reviewed personally, report as above
-Blood culture both sets growing Klebsiella Oxytoca, susceptibility report pending.
-Discontinue vancomycin, maintain on cefepime for now
-ID consulted
# Acute hypoxic respiratory failure
#Acute HFpEF
-IV lasix today and prn
-wean o2 as tolerated
-Wean off oxygen as possible
-o2 goal >92%
-was on IVF
#Constipation
-had bm 3/9 and tolerating diet - doubt partial obstruction, more than likely adynamic ileus
-Nondistended abd
-OOb to chair, early ambulation
-Enema today
-NPO
-Surg consult and NGT if worsening
#Chronic inflammatory demyelinating polyradiculoneuropathy
-On Vyvgart infusions received yesterday
#Hyponatremia
-mild
-monitor
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
-Continue fludrocortisone
# Macrocytic Anemia
-Denies of having any GIB/PUD h/o
-b12/folate WNL
-component of dilution?
-monitor hgb
-F/u tsh
Essential hypertension
Hypothyroidism
Obstructive sleep apnea
Chronic anemia - monitor
Bipolar disorder-Continue bupropion, clonazepam, lamotrigine, olanzapine, venlafaxine, galantamine
Hyperlipidemia-Continue statin
BPH-continue tamsulosin
DNR/DNI
DVT prophylaxis�heparin
Total time spent : 51 mins
Anticipated Discharge: 24 - 48 hours
Subjective/Interval History
-
Date of Service: September 19, 2024
had BM yesterday evening
Objective Data
-
Labs:
Laboratory Results
09/19/24
04:12
WBC 6.2
Hgb 7.3 L
Hct 21.5 L
Plt Count 155
Sodium 134 L
Potassium 3.6
Chloride 101
Carbon Dioxide 25
BUN 18
Creatinine 0.8
Glucose 143 H
Calcium 8.5
Vital Signs:
Vital Signs
Temp Pulse Resp BP Pulse Ox
99.3 F 77 16 135/59 95
09/19/24 08:19 09/19/24 14:02 09/19/24 14:02 09/19/24 08:19 09/19/24 14:02
I&O
09/18/24 09/19/24 09/20/24
06:59 06:59 06:59
Intake Total 640 / 640
Output Total 1900 / 1900
Balance -1260 / -1260
Review of Systems
-
History Source: Patient
All other systems: Not reviewed unless documented
Physical Exam
-
General: No Apparent Distress and Comfortable
HEENT: Oxygen (5L)
Respiratory: Rhonchi
Cardiac: Regular Rhythm and S1/S2; Negative Murmur or Rub
GI: Soft, Nontender and Nondistended
Musculoskeletal: No Edema
Neuro: Awake, Alert, Oriented, No Motor Deficits and Nonfocal/Grossly Intact
Psych: Calm
Data Reviewed
-
Diagnostic Radiology: Report Reviewed by me
Labs: Labs Reviewed by me
[2024-09-19 15:51] VITALS: BP 111/58
[2024-09-19] MEDS: LASIX 40 MG IV (16:11)
[2024-09-19 17:20] LABS: TSH Reflex To Free T4 4.36 uIU/ml (0.47-4.68)
--- NOTE | 2024-09-19 18:10 | PTCARENOTE ---
Miralax given. Milk and molasses enema given. Moderate amount of hard stool post enema. No evident blood in stool. Patient made NPO. Educated patient on NPO status and plan to repeat bowel xray tomorrow.
[2024-09-19] MEDS: KLONOPIN 0.5 MG PO (20:17)
[2024-09-19] MEDS: EFFEXOR XR 75 MG PO (20:17)
[2024-09-19] MEDS: ZYPREXA 5 MG PO (20:17)
[2024-09-19 23:15] VITALS: BP 148/65
[2024-09-20] MEDS: SYNTHROID 75 MCG PO (05:52)
[2024-09-20 06:12] LABS: ALT (SGPT) 24 U/L (0-50); AST (SGOT) 35 U/L (17-59); Albumin 3.1 g/dl (3.5-5.0); Alkaline Phosphatase 158 U/L (38-126); Blood Urea Nitrogen 15 mg/dl (9-20); Calcium 8.9 mg/dl (8.4-10.2); Carbon Dioxide 29 mmol/L (22-30); Chloride 100 mmol/L (98-107); Estimated Creatinine Clearance 81 ml/min; Glucose 141 mg/dl (70-99); Potassium 3.5 mmol/L (3.5-5.1); Sodium 135 mmol/L (135-145); Total Bilirubin 0.7 mg/dl (0.2-1.3); Total Protein 5.6 g/dl (6.3-8.2); eGFR > 60.00
[2024-09-20 06:29] LABS: Hematocrit 22.3 % (39.0-52.0); Hemoglobin 7.5 g/dL (13.0-18.0); Mean Corp Hgb Conc. 33.6 g/dL (33.0-37.0); Mean Corpuscular Hgb 33.9 pg (27.0-31.0); Mean Corpuscular Volume 100.9 fL (80.0-94.0); Mean Platelet Volume 10.2 fL (7.4-10.4); Platelet Count 188 10^3/uL (130-400); Red Blood Cell Count 2.21 10^6/uL (4.70-6.10); Red Cell Dist. Width 15.3 % (11.5-14.5); White Blood Cell Count 5.1 10^3/uL (4.8-10.8)
[2024-09-20 07:30] VITALS: BP 139/66
[2024-09-20] MEDS: MIRALAX 17 GRAMS PO (08:57)
[2024-09-20] MEDS: WELLBUTRIN SR (12 hour sustained release) 100 MG PO (08:57)
[2024-09-20] MEDS: LINZESS 72 MCG PO (08:57)
[2024-09-20] MEDS: DULCOLAX 5 MG PO ×2 (08:57→13:07)
[2024-09-20] MEDS: EFFEXOR XR 150 MG PO (08:58)
[2024-09-20] MEDS: FLOMAX 0.4 MG PO (08:58)
[2024-09-20] MEDS: THERAGRAN 1 TABLET PO (08:58)
[2024-09-20] MEDS: FLORINEF 0.1 MG PO (08:58)
[2024-09-20] MEDS: LOW STRENGTH ASPIRIN 81 MG PO (08:58)
[2024-09-20] MEDS: METAMUCIL, KONSYL 1 PACKET PO (08:58)
[2024-09-20] MEDS: RAZADYNE 8 MG PO ×2 (08:58→20:05)
[2024-09-20] MEDS: LAMICTAL 200 MG PO ×2 (08:58→20:05)
[2024-09-20] MEDS: CRESTOR 10 MG PO (10:11)
--- NOTE | 2024-09-20 10:12 | PN.CDI ---
CDI
- -
CDI:
Physician Documentation Request
Admit Date: 09/16/24 16:11
Dear Doctor Dixon,
Please review the following and provide your response in the progress notes.
Clinical Indicators:
Pt admitted with # Sepsis-Klebsiella bacteremia/Acute Hypoxic Respiratory failure
Documented per ED, ' Lactate elevated at 4.3..'
Lactic acid levels as below/ Pt did get IVFs
09/16/24 09/16/24
13:53 18:54
Lactic Acid 4.3 H* 1.0
Based on the above, could you clarify in the progress notes, the appropriate diagnosis, if significant, that supports the above abnormalities and additional evaluation, monitoring and/or treatment rendered:
Lactic Acidosis
Abnormal lab value only
Other ( please specify)
Use of terms such as suspected, likely, concern for, or probable (associated with a specific diagnosis that is being evaluated, monitored, or treated as if it exists) are acceptable and can be coded in the inpatient setting, when documented at the
time of discharge.
Thank you,
Mabel Mulligan RN
CDI Specialist
[place] [facility]
Please use your independent medical judgment in providing your response.
--- NOTE | 2024-09-20 10:17 | PN.CDI ---
CDI
- -
CDI:
Physician Documentation Request
Admit Date: 09/16/24 16:11
Dear Doctor Dixon,
Please review the following and provide your response in the progress notes.
Clinical Indicators:
Pt admitted with Sepsis-Klebsiella bacteremia/Acute Hypoxic Respiratory failure
Renal functions are as below /Pt did get IVFs
09/16/24 09/17/24 09/19/24
13:18 09:15 04:12
Creatinine 1.3 1.1 0.8
Please clarify which of the following accurately represents the patient's renal status:
ANDREW
Change in creatinine due to dehydration only
Other ( please specify)
Criteria for ANDREW*
1 Increase in serum creatinine by > or = to 0.3 mg/dL (> or = to 26.5 micromol/L) within 48 hours, OR
2 Increase in serum creatinine to > or = to 1.5 times baseline, which is known or presumed to have occurred within 7 days, OR
3 Urine volume < 0.5 nL/kg/hour for six hours
Use of terms such as suspected, likely, concern for, or probable (associated with a specific diagnosis that is being evaluated, monitored, or treated as if it exists) are acceptable and can be coded in the inpatient setting, when documented at the
time of discharge.
Thank you,
Mabel Mulligan RN
CDI Specialist
[place] [facility]
Please use your independent medical judgment in providing your response.
*Source: Kidney Disease: Improving Global Outcomes (KDIGO) 2012
--- NOTE | 2024-09-20 10:52 | CON.ID ---
Consultation
-
Date/Time Consultation Requested: 09/19/24 15:45
Date/Time Consultation Performed: 09/20/24 10:52
Requesting Provider: Dr Metcalf
Performing Provider: Dr Justice
Reason for Consultation: fever
Chief Complaint / Past History
Chief Complaint
fever
History of Present Illness
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 Note that last vyvgart was yesterday and he gets infusions weekly.
Note remote history of UTIs due to K oxytoca 2023.
Then 09/15 he had a fever to 101.4. The next morning 09/16 he noted productive cough and started to feel short of breath, he checked his pulse ox and found it to be 89%. No chest pain, abdominal pain, vomiting, diarrhea or dysuria.
Since arrival here he was initially febrile to 100.7, bp now stable, wbc 5.1, hgb 7.5, plt 188, cr 0.8, na 135, probnp 1989, UA no pyruia, covid ag negative, chest/abd/pelvis xray done: mild pulmonary vasc congestion, ileus, mild fecal retention, CT
chest 09/16: Patchy left upper lobe groundglass densities suspicious for pneumonia.
2. Mild bilateral lower lobe dependent subsegmental atelectasis and/or pneumonia, right greater than left, blood cultures x2 from 09/16 both with K oxytoca, urine culture finalized negative, repeat blood culture from 09/18 no growth to date. Course has
been notable for acute on chronic constipation. Patient initially on vancomycin and cefepime now on cefepime.
Past History
Additional Past Surgical History:
pacemaker
port
Allergy History:
No Known Allergies Allergy (Verified 09/16/24 13:07)
Review of Systems
Vital Signs
Temp Pulse Resp BP Pulse Ox
97.3 F 77 18 139/66 4
09/20/24 07:30 09/20/24 07:30 09/20/24 07:30 09/20/24 07:30 09/20/24 07:30
Physical Exam
Physical Exam
Constitutional: No Acute Distress
Cardiovascular: Regular Rate and S1/S2; Negative Murmur or Rub
Pulmonary: Clear and Symmetric; Negative Wheezes, Rales or Rhonchi
Gastrointestinal: Soft, Non Tender, Non Distended and Normal Bowel Sounds
Skin: Warm and Dry; Negative Rash or Jaundice
Lab / Diagnostic Study Results
09/20/24 04:48
09/20/24 04:48
Abs Immat Gran (auto) 0.3 10^3/uL (0-0.05) H 09/17/24 09:15
Absolute Neuts (auto) 9.2 10^3/uL (1.4-6.5) H 09/17/24 09:15
Absolute Lymphs (auto) 1.2 10^3/uL (1.2-3.4) 09/17/24 09:15
Absolute Monos (auto) 1.1 10^3/uL (0.1-0.6) H 09/17/24 09:15
Absolute Basos (auto) 0.0 10^3/uL (0-0.2) 09/17/24 09:15
Immature Gran % 2.3 % (0-0.5) H 09/17/24 09:15
Neutrophils % 76.6 % (42.2-75.2) H 09/17/24 09:15
Lymphocytes % 10.3 % (20.5-51.1) L 09/17/24 09:15
Monocytes % 9.5 % (1.7-9.3) H 09/17/24 09:15
Eosinophils % 1.1 % (0-6) 09/17/24 09:15
Basophils % 0.2 % (0-2) 09/17/24 09:15
Lactic Acid 1.0 mmol/L (0.7-2.0) 09/16/24 18:54
Ur Squamous Epith Cells 0-2 /LPF (Few) 09/16/24 13:53
Blood Culture Final 09/19/24-1216
Positive for Klebsiella oxytoca by [employer] [facility]
Nucleic Acid Methodology.
Organism 1 Klebsiella oxytoca
1. Klebsiella oxytoca
M.I.C. RX
--------- ---
Amoxicillin/Potas. Clavulanate <=8/4 S
Ampicillin >16 R
Ampicillin/Sulbactam 16/8 I
Aztreonam <=4 S
Cefazolin >16 R
Cefepime <=2 S
Ceftazidime <=1 S
Ceftriaxone <=1 S
Ertapenem <=0.5 S
Ciprofloxacin <=0.25 S
Gentamicin <=2 S
Meropenem <=1 S
Piperacillin/Tazobactam <=8 S
Tetracycline <=4 S
Tobramycin <=2 S
Trimethoprim/Sulfamethoxazole <=2/38 S
Microbiology Results
Micro:
09/18/24 10:11 Blood Culture - Preliminary
Blood/Venous No Growth in 48 hours- Final report to follow
09/16/24 13:53 Blood Culture - Final
Blood/Venous Klebsiella oxytoca
Gram Stain - Final
09/16/24 13:53 Blood Culture - Final
Blood/Venous Klebsiella oxytoca
Gram Stain - Final
09/16/24 13:53 Urine Culture - Final
Urine NO GROWTH
09/16/24 13:18 Influenza Types A & B (MAGGIE) - Final
Nasal Swab Negative for Influenza A & B, NAAT
Negative results must be combined with clinical observations
and patient history.
Nucleic Acid Amplification test (NAAT)performed on the
[employer] NOW platform.
Assessment / Plan
Pneumonia due to K oxytoca (CAP)
K oxytoca bacteremia
Acute Hypoxemic resp failure
Immunosuppression
CIDP
Port
- 09/16 CT chest with AMINA and bilateral lower lobe infiltrates; TTE: no significant change
- repeat a set of blood cultures today, this will complete two sets
- follow O2 requirements, remains on 4L at this time
- start ceftriaxone stop cefepime, when stable for DC can transition to cefdinir 300 mg PO BID x 7 day total course 09/16-09/22
[2024-09-20] MEDS: STERILE WATER FOR INJECTION 20 ML IV ×2 (11:24→11:30)
[2024-09-20] MEDS: ROCEPHIN 2000 MG IV (11:25)
--- NOTE | 2024-09-20 14:13 | W.PN.HOSP.TC ---
Today's Communication/Plan
-
wean o2
iv lasix again
ID consulted - switched to ceftriaxone
Repeat Enema
CT A/P
Assessment / Plan
Assessment / Plan
# Sepsis - POA
# Klebsiella bacteremia
ECHO with no obvious vegetation, has hx of urine with Klebsiella oxytoca
-Chest x-ray negative
-COVID and flu negative
-CT Chest images reviewed personally, report as above
-Blood culture both sets growing Klebsiella Oxytoca, susceptibility report pending.
-Discontinue vancomycin, cefepime - switched to Ceftriaxone
-ID consulted
# Acute hypoxic respiratory failure
#Acute HFpEF
-IV lasix today and prn
-wean o2 as tolerated
-Wean off oxygen as possible
-o2 goal >92%
-was on IVF
#Constipation
-had bm 3/9 and tolerating diet - doubt partial obstruction, more than likely adynamic ileus
-Nondistended abd
-OOb to chair, early ambulation
-Enema today again
-NPO
-CT A/P with oral contrast
-Surg consult and NGT if worsening although did have BM yesterday
#Chronic inflammatory demyelinating polyradiculoneuropathy
-On Vyvgart infusions received yesterday
#Hyponatremia
-mild
-monitor
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
-Continue fludrocortisone
# Macrocytic Anemia
-Denies of having any GIB/PUD h/o
-b12/folate WNL
-component of dilution?
-monitor hgb
-F/u tsh
Essential hypertension
Hypothyroidism
Obstructive sleep apnea
Chronic anemia - monitor
Bipolar disorder-Continue bupropion, clonazepam, lamotrigine, olanzapine, venlafaxine, galantamine
Hyperlipidemia-Continue statin
BPH-continue tamsulosin
DNR/DNI
DVT prophylaxis�heparin
Total time spent on today's encounter was 55 minutes which included time spent in counseling the patient/family regarding diagnosis and treatment plan as listed above, goals of care, and symptom management. Case was discussed with nursing staff,
specialists, and care coordinators/case management. All labs and imaging personally reviewed by me. Remainder the time spent in detailed review of previous records, lab data, imaging, and other medical provider documentation.
Anticipated Discharge: > 48 hours
Subjective/Interval History
-
Date of Service: September 20, 2024
had bm after enema, still appears to have stool
Objective Data
-
Labs:
Laboratory Results
09/20/24
04:48
WBC 5.1
Hgb 7.5 L
Hct 22.3 L
Plt Count 188 D
Sodium 135
Potassium 3.5
Chloride 100
Carbon Dioxide 29
BUN 15
Creatinine 0.8
Glucose 141 H
Calcium 8.9
Total Bilirubin 0.7
AST 35
ALT 24
Alkaline Phosphatase 158 H
Vital Signs:
Vital Signs
Temp Pulse Resp BP Pulse Ox
97.3 F 77 18 139/66 4
09/20/24 07:30 09/20/24 07:30 09/20/24 07:30 09/20/24 07:30 09/20/24 07:30
I&O
09/19/24 09/20/24 09/21/24
06:59 06:59 06:59
Intake Total 640 / 640 0 / 0
Output Total 1900 / 1900 900 / 900
Balance -1260 / -1260 -900 / -900
Review of Systems
-
History Source: Patient
All other systems: Not reviewed unless documented
Physical Exam
-
General: No Apparent Distress and Comfortable
HEENT: Oxygen (5L)
Respiratory: Rhonchi
Cardiac: Regular Rhythm and S1/S2; Negative Murmur or Rub
GI: Soft, Nontender and Nondistended
Musculoskeletal: No Edema
Neuro: Awake, Alert, Oriented, No Motor Deficits and Nonfocal/Grossly Intact
Psych: Calm
Data Reviewed
-
Diagnostic Radiology: Report Reviewed by me
Labs: Labs Reviewed by me
[2024-09-20] MEDS: OMNIPAQUE 50 ML PO (14:42)
[2024-09-20] MEDS: LASIX 40 MG IV (14:43)
[2024-09-20 15:29] VITALS: BP 137/64
--- NOTE | 2024-09-20 16:35 | CM ---
Spoke with Petra Rodriguez. Requested PM& R consult to evaluate if appropriate for acute rehab [facility] .
Awaiting evaluation .
Will speak with family and pt after Dr Alves evaluates
PLAN Possible [facility] .
--- NOTE | 2024-09-20 18:31 | PTCARENOTE ---
Milk and molasses enema given with good results. CT of abdomen completed. Patient remains NPO.
[2024-09-20] MEDS: ZYPREXA 5 MG PO (20:05)
[2024-09-20] MEDS: KLONOPIN 0.5 MG PO (20:06)
[2024-09-20] MEDS: EFFEXOR XR 75 MG PO (20:06)
[2024-09-20 23:32] VITALS: BP 141/66
[2024-09-21 04:38] LABS: Hematocrit 23.4 % (39.0-52.0); Mean Corp Hgb Conc. 34.2 g/dL (33.0-37.0); Mean Corpuscular Volume 99.6 fL (80.0-94.0); Platelet Count 210 10^3/uL (130-400); Red Blood Cell Count 2.35 10^6/uL (4.70-6.10); Red Cell Dist. Width 14.9 % (11.5-14.5); White Blood Cell Count 4.4 10^3/uL (4.8-10.8)
[2024-09-21] MEDS: SYNTHROID 75 MCG PO (06:08)
[2024-09-21 06:16] LABS: ALT (SGPT) 28 U/L (0-50); AST (SGOT) 39 U/L (17-59); Albumin 3.3 g/dl (3.5-5.0); Alkaline Phosphatase 150 U/L (38-126); Blood Urea Nitrogen 12 mg/dl (9-20); Calcium 8.9 mg/dl (8.4-10.2); Carbon Dioxide 31 mmol/L (22-30); Chloride 98 mmol/L (98-107); Estimated Creatinine Clearance 92 ml/min; Glucose 113 mg/dl (70-99); Potassium 3.2 mmol/L (3.5-5.1); Sodium 137 mmol/L (135-145); Total Bilirubin 0.6 mg/dl (0.2-1.3); eGFR > 60.00
[2024-09-21 07:29] VITALS: BP 143/68
[2024-09-21] MEDS: EFFEXOR XR 150 MG PO (08:24)
[2024-09-21] MEDS: LOW STRENGTH ASPIRIN 81 MG PO (08:24)
[2024-09-21] MEDS: LAMICTAL 200 MG PO ×2 (08:24→20:11)
[2024-09-21] MEDS: CRESTOR 10 MG PO (08:24)
[2024-09-21] MEDS: KCL 20 MEQ PO (08:24)
[2024-09-21] MEDS: DULCOLAX 10 MG PO (08:24)
[2024-09-21] MEDS: WELLBUTRIN SR (12 hour sustained release) 100 MG PO (08:24)
[2024-09-21] MEDS: KCL ELIXIR 40 MEQ PO (08:24)
[2024-09-21] MEDS: MIRALAX 17 GRAMS PO (08:24)
[2024-09-21] MEDS: FLOMAX 0.4 MG PO (08:24)
[2024-09-21] MEDS: RAZADYNE 8 MG PO ×2 (08:24→20:11)
[2024-09-21] MEDS: METAMUCIL, KONSYL 1 PACKET PO (08:24)
[2024-09-21] MEDS: FLORINEF 0.1 MG PO (08:25)
[2024-09-21] MEDS: THERAGRAN 1 TABLET PO (08:25)
[2024-09-21] MEDS: LASIX 40 MG IV (08:25)
[2024-09-21] MEDS: LINZESS 72 MCG PO (08:25)
--- NOTE | 2024-09-21 10:47 | W.PN.ID1 ---
Addendum entered and electronically signed by Bobbi Justice MD 09/21/24 12:50:
Vilas back from Dr Rick, he feels that Mr Hero has significant declines in ability to move about, he would recommend continuing the vyvgart.
In this case benefits appear to outweigh the risks.
Recommendation communicated to Dr Metcalf and Dr Alves (who is considering accepting him at [facility])
Original Note:
Date of Service
Date of Service: September 21, 2024
Today's Communication
- two sets of blood cultures 09/18 and 09/20 no growth to date
- c/w ceftriaxone via port x14 day total course 09/16-09/29
- script provided to case management associate 09/21
- ideally immunosuppressive medications would be held while on IV antibiotics - left message for Dr Prabhjot Zambrano his neurologist
Assessment / Plan
Pneumonia due to K oxytoca (CAP)
K oxytoca bacteremia
Acute Hypoxemic resp failure
Immunosuppression
CIDP
Port
- 09/16 CT chest with AMINA and bilateral lower lobe infiltrates; TTE: no significant change
- two sets of blood cultures 09/18 and 09/20 no growth to date
- c/w ceftriaxone via port x14 day total course 09/16-09/29
- script provided to case management associate 09/21
- ideally immunosuppressive medications would be held while on IV antibiotics - left message for Dr Prabhjot Zambrano his neurologist
Chief Complaint
-: Pneumonia and Bacteremia
Subjective / Review of Systems
afebrile
bp stable
now on room air
had BM after milk of mag enema last night
Vital Signs / Physical Exam
Vital Signs
Vital Signs
Temp Pulse Resp BP Pulse Ox
98.6 F 78 20 143/68 94
09/21/24 07:29 09/21/24 08:25 09/21/24 07:29 09/21/24 08:25 09/21/24 10:30
Physical Exam
Constitutional: No Acute Distress
Cardiovascular: Regular Rate and S1/S2; Negative Murmur or Rub
Pulmonary: Clear and Symmetric; Negative Wheezes or Rales
Gastrointestinal: Soft, Non Tender, Non Distended and Normal Bowel Sounds
Skin: Warm and Dry; Negative Rash or Jaundice
Lines: Port (no erythema, warmth or drainage, accessed)
Objective Data
Lab Data
Lab Results
09/21/24 04:00
09/21/24 04:00
Estimated Creat Clear 92 ml/min 09/21/24 04:00
Lactic Acid 1.0 mmol/L (0.7-2.0) 09/16/24 18:54
Total Bilirubin 0.6 mg/dl (0.2-1.3) 09/21/24 04:00
AST 39 U/L (17-59) 09/21/24 04:00
ALT 28 U/L (0-50) 09/21/24 04:00
Alkaline Phosphatase 150 U/L (38-126) H 09/21/24 04:00
Most recent labs reviewed.
Micro Results:
09/18/24 10:11 Blood Culture - Preliminary
Blood/Venous No Growth in 72 hours- Final report to follow
09/20/24 11:36 Blood Culture - Pending
Blood/Venous
09/16/24 13:53 Blood Culture - Final
Blood/Venous Klebsiella oxytoca
Gram Stain - Final
09/16/24 13:53 Blood Culture - Final
Blood/Venous Klebsiella oxytoca
Gram Stain - Final
09/16/24 13:53 Urine Culture - Final
Urine NO GROWTH
09/16/24 13:18 Influenza Types A & B (MAGGIE) - Final
Nasal Swab Negative for Influenza A & B, NAAT
Negative results must be combined with clinical observations
and patient history.
Nucleic Acid Amplification test (NAAT)performed on the
[employer] NOW platform.
--- NOTE | 2024-09-21 13:07 | W.PN.HOSP.TC ---
Addendum entered and electronically signed by Angel Metcalf MD 09/21/24 16:31:
Lactic Acidosis - resolved
ANDREW - most liekly septyic atn v pre-renal - resolved
Original Note:
Today's Communication/Plan
-
iv lasix, k repletion
wean o2
Appreciate ID communication with neurologist for continuation of Vyvgart. Will continue
Appreciate Physiatry recs
Assessment / Plan
Assessment / Plan
# Sepsis - POA
# Klebsiella bacteremia
ECHO with no obvious vegetation, has hx of urine with Klebsiella oxytoca
-Chest x-ray negative
-COVID and flu negative
-CT Chest images reviewed personally, report as above
-Blood culture both sets growing Klebsiella Oxytoca, susceptibility report pending.
-Discontinue vancomycin, cefepime - switched to Ceftriaxone - c/w ceftriaxone via port x14 day total course 09/16-09/29
-ID consulted
-repeat cultures drawn
# Acute hypoxic respiratory failure
#Acute HFpEF
-IV lasix today and prn
-wean o2 as tolerated
-Wean off oxygen as possible
-o2 goal >92%
-was on IVF
#Constipation
-had bm 09/18 and tolerating diet - doubt partial obstruction, more than likely adynamic ileus
-Nondistended abd
-OOb to chair, early ambulation
-Enema today again
-CT imaging without evidence of obstruction
-passing BMs, non distended
-Resume diet
#Chronic inflammatory demyelinating polyradiculoneuropathy
-On Vyvgart infusions
-ID spoke to Neurolgoist (Dr. Rick) at [facility] and feels that Mr Monahan has significant declines in ability to move about; Benefits outweight risks - restart Vyvgart - Spouse asked to bring it in
#Hyponatremia
-mild
-monitor
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
-Continue fludrocortisone
# Macrocytic Anemia
-Denies of having any GIB/PUD h/o
-b12/folate WNL
-component of dilution?
-monitor hgb
-F/u tsh - wnl
Essential hypertension
Hypothyroidism
Obstructive sleep apnea
Chronic anemia - monitor
Bipolar disorder-Continue bupropion, clonazepam, lamotrigine, olanzapine, venlafaxine, galantamine
Hyperlipidemia-Continue statin
BPH-continue tamsulosin
Hypokalemia
� Monitor and replete
DNR/DNI
DVT prophylaxis�heparin
Anticipated Discharge: Within 24 hours
Subjective/Interval History
-
Date of Service: September 21, 2024
1 to 2 L of oxygen today, improving
Bowel movement enema yesterday
Objective Data
-
Labs:
Laboratory Results
09/21/24
04:00
WBC 4.4 L
Hgb 8.0 L
Hct 23.4 L
Plt Count 210
Sodium 137
Potassium 3.2 L
Chloride 98
Carbon Dioxide 31 H
BUN 12
Creatinine 0.7
Glucose 113 H
Calcium 8.9
Total Bilirubin 0.6
AST 39
ALT 28
Alkaline Phosphatase 150 H
Vital Signs:
Vital Signs
Temp Pulse Resp BP Pulse Ox
98.6 F 78 20 143/68 90
09/21/24 07:29 09/21/24 08:25 09/21/24 07:29 09/21/24 08:25 09/21/24 10:55
I&O
09/20/24 09/21/24 09/22/24
06:59 06:59 06:59
Intake Total 0 / 0 780 / 780
Output Total 900 / 900 3100 / 3100
Balance -900 / -900 -2319 / -2319
Review of Systems
-
History Source: Patient
All other systems: Not reviewed unless documented
Physical Exam
-
General: No Apparent Distress and Comfortable
HEENT: Oxygen (1-2l)
Respiratory: Rhonchi
Cardiac: Regular Rhythm and S1/S2; Negative Murmur or Rub
GI: Soft, Nontender and Nondistended
Musculoskeletal: No Edema
Neuro: Awake, Alert, Oriented, No Motor Deficits and Nonfocal/Grossly Intact
Psych: Calm
Data Reviewed
-
Diagnostic Radiology: Report Reviewed by me
CT Scan: Report Reviewed by me
Labs: Labs Reviewed by me
--- NOTE | 2024-09-21 13:37 | CON.MR ---
Addendum entered and electronically signed by Fito Alves MD 09/21/24 23:38:
Blanchable redness over heels. Given lack of sensation in the ankles is at high risk for having pressure ulcers. Bilateral Multi-Podus boots.
Original Note:
Documented by User: April Tomlin MD, Resident 09/21/24 17:40
Consultation
Consultation Request
Date/Time Consultation Requested: 09/20/2024
Date/Time Consultation Performed: 09/20/2024
Medical History
-
History of Present Illness:
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
disorder who presented to the ED with fever, sob, hypoxemia (89% on RA) and productive cough. Chest xray, flu and covid negative. Chest Ct showed patchy left upper lobe groundglass densities suspicious for pneumonia and mild bilateral lower lobe
dependent subsegmental atelectasis and/or pneumonia, right greater than left. Was treated for sepsis secondary to likely pneumonia with vancomycin and cefepime. Patient was on 5l oxygen via NC for acute hypoxic respiratory failure. Blood cultures
came back positive for Klebsiella oxytoca. Of note, patient has a previous history of UTI with the same pathogen x2 within the last year. Urinalysis not suggestive of infection this admission. Echo 09/19/24 showed no evidence of endocarditis, EF
60-65%. Patient had constipation, although this has been an ongoing problem for him and he takes multiple medications ((linzess, dulcolax, miralax, metamucil) at home. Obstruction series suggestive of adynamic ileus or partial intestinal
obstruction. s/p enema, CT abdomen/pelvis pending. Also seen mild interstitial prominence, suggestive of mild pulmonary vascular congestion. Diuresis was started with IV lasix and antibiotics were adjusted, vancomcin stopped and cefepime
transitioned to ceftriaxone. Repeat blood cultures negative.
DVT prophylaxis heparin
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
Procedure History: appendectomy, cholecystectomy
Family History: Not pertinent
Social History:
Functional Level Premorbidly: For the past 2-3 weeks, patient has needed mod assistance for ambulation with a rolling walker. Before that, provided supervision to min assistance for ambulation with RW.
Functional Level Currently: moderate assistance with transfer, mobility not tested, supervision for lower extremity self care
Tobacco: Denies
Alcohol: Denies
Drug use: Denies
Lives with: Spouse
24-hour assistance available: Yes
Number of floors: 1
# steps to enter: 0
Driving: No
Occupation: Retired
Review of Systems:
Constitutional: (x) Normal _
Eye: (x) Normal _
Ear/Nose/Throat: (x) Normal _
Respiratory: (x) Abnormal _ cough, shortness of breath
Cardiovascular: (x) Normal _
Gastrointestinal: (x) Abnormal _ constipation
Genitourinary: (x) Normal _
Musculoskeletal: (x) Abnormal _ decreased strength
Integumentary: (x) Normal _
Neurologic: (x) Abnormal _ decreased sensation on both legs
Psychiatric: (x) Normal _
Endocrine: (x) Normal _
Hematologic/Lymphatic: (x) Normal _
Allergic/Immunologic: (x) Normal _
Allergies / Home Medications
Allergy/AdvReac Type Severity Reaction Status Date / Time
No Known Allergies Allergy Verified 09/16/24 13:07
�Medication �Instructions �Recorded �Confirmed �Last Taken �Type
bupropion HCl 100 mg tablet,12 hr 100 mg PO DAILY Mental 05/18/21 09/16/24 08/16/21 History
sustained-release Health/Anxiety
fludrocortisone 0.1 mg tablet 0.1 mg PO DAILY Hormonal agent 05/18/21 09/16/24 08/15/21 History
galantamine 8 mg tablet 8 mg PO BID DEMENTIA 05/18/21 09/16/24 08/15/21 History
olanzapine 5 mg tablet 5 mg PO HS Mental Health/Anxiety 05/18/21 09/16/24 08/15/21 History
omega-3 fatty acids-fish oil 300 1 ea PO DAILY High cholesterol 05/18/21 09/16/24 08/15/21 History
mg-1,000 mg capsule
rosuvastatin 10 mg tablet 10 mg PO DAILY High cholesterol 05/18/21 09/16/24 08/15/21 History
venlafaxine 150 mg 150 mg PO DAILY Mental 05/18/21 09/16/24 08/15/21 History
capsule,extended release 24 hr Health/Anxiety
(Effexor XR)
clonazepam 0.5 mg tablet 0.5 mg PO HS Mental Health/Anxiety 08/16/21 09/16/24 08/15/21 History
aspirin 81 mg chewable tablet 81 mg PO DAILY 08/18/21 09/16/24 Unknown Rx
polyethylene glycol 3350 17 gram 17 grams PO DAILY ##30 08/18/21 09/16/24 05/18/21 Rx
oral powder packet
tamsulosin 0.4 mg capsule 0.4 mg PO DAILY #30 caps 08/18/21 09/16/24 Unknown Rx
bisacodyl 5 mg tablet,delayed 5 mg PO DAILY 09/16/24 09/16/24 Unknown History
release (Dulcolax (bisacodyl))
clonazepam 0.5 mg tablet 0.5 mg PO DAILYPRN PRN anxiety 09/16/24 09/16/24 Unknown History
efgartigimod oleg 1008 5.6 ml SC TH 09/16/24 09/16/24 Unknown History
jn-wdhjbjyx-bfjn 11,200 unit/5.6
mL subcut soln (Vyvgart Hytrulo)
ibuprofen 200 mg tablet (Advil) 400 mg PO Q6HPRN PRN mild pain 09/16/24 09/16/24 Unknown History
lamotrigine 200 mg tablet 200 mg PO BID 09/16/24 09/16/24 Unknown History
mirabegron 50 mg tablet,extended 50 mg PO DAILY 09/16/24 09/16/24 Unknown History
release 24 hr (Myrbetriq)
potassium chloride 20 mEq 20 meq PO Q48H 09/16/24 09/16/24 Unknown History
tablet,extended release
psyllium husk 3.4 gram/5.4 gram 1 tbsp PO DAILY 09/16/24 09/16/24 Unknown History
oral powder (Metamucil)
therapeutic multivitamin 1 tab PO DAILY 09/16/24 09/16/24 Unknown History
venlafaxine 75 mg capsule,extended 75 mg PO HS 09/16/24 09/16/24 Unknown History
release 24 hr
levothyroxine 75 mcg tablet 75 mcg PO DAILY 09/17/24 09/17/24 2 Days Ago History
~09/15/24
linaclotide 72 mcg capsule 72 mcg PO DAILY 09/17/24 09/17/24 2 Days Ago History
(Linzess) ~09/15/24
Physical Exam
Active Medications
Generic Name Dose Route Start Last Admin
Trade Name Freq PRN Reason Stop Dose Admin
Acetaminophen 650 mg 09/16/24 19:25 09/17/24 10:41
Acetaminophen 325 Mg Tablet PO 10/14/24 19:24 650 mg
Q4HPRN PRN Administration
mild pain/MILLER/temp> 100.4F
Albuterol/Ipratropium 3 ml 09/18/24 05:20 09/19/24 06:18
Ipratropium 0.5/Albuterol 3 Mg (3 Ml Ampul) INH 3 ml
R Q4HPRN PRN Administration
sob/wheeze
Protocol
Aspirin 81 mg 09/17/24 08:00 09/20/24 08:58
Aspirin 81 Mg Chewable Tablet PO 10/15/24 07:59 81 mg
DAILY RISA Administration
Bisacodyl 10 mg 09/17/24 20:29 09/18/24 21:17
Bisacodyl 10 Mg Rectal Suppository RECTAL 10/15/24 20:28 10 mg
DAILYPRN PRN Administration
constipation
Bisacodyl 10 mg 09/21/24 08:00
Bisacodyl 5 Mg Enteric Coated Tablet PO 10/19/24 07:59
DAILY RISA
Bupropion HCl 100 mg 09/17/24 08:00 09/20/24 08:57
Bupropion (12hr) Sustained Release 100 Mg Tablet PO 10/15/24 07:59 100 mg
DAILY RISA Administration
Ceftriaxone Sodium 2,000 mg 09/20/24 12:00 09/20/24 11:25
Ceftriaxone 2,000 Mg/20 Ml Vial IV 2,000 mg
Q24H RISA Administration
Clonazepam 0.5 mg 09/16/24 19:25
Clonazepam 0.5 Mg Tablet PO 10/14/24 19:24
DAILYPRN PRN
anxiety
Clonazepam 0.5 mg 09/16/24 22:00 09/19/24 20:17
Clonazepam 0.5 Mg Tablet PO 10/14/24 21:59 0.5 mg
HS RISA Administration
Fludrocortisone Acetate 0.1 mg 09/17/24 08:00 09/20/24 08:58
Fludrocortisone Acetate 0.1 Mg Tablet PO 10/15/24 07:59 0.1 mg
DAILY RISA Administration
Galantamine Hydrobromide 8 mg 09/16/24 20:00 09/20/24 08:58
Galantamine 8 Mg Tablet PO 10/14/24 19:59 8 mg
BID RISA Administration
Heparin Sodium 5,000 units 09/16/24 20:00 09/18/24 23:41
Heparin 5,000 Units/Ml 1 Ml Vial SC 10/14/24 19:59 Not Given
Q12 RISA
Heparin Sodium (Porcine) 500 unit 09/20/24 12:30
Heparin Flush Pf (100 Unit/Ml) 5 Ml Syringe IV 10/18/24 12:29
PER PROTOCOL RISA
Lamotrigine 200 mg 09/16/24 20:00 09/20/24 08:58
Lamotrigine 100 Mg Tablet PO 10/14/24 19:59 200 mg
BID RISA Administration
Levothyroxine Sodium 75 mcg 09/18/24 06:00 09/20/24 05:52
Levothyroxine 75 Mcg Tablet PO 10/16/24 05:59 75 mcg
DAILY@0600 RISA Administration
Linaclotide 72 mcg 09/18/24 08:00 09/20/24 08:57
Linaclotide 72 Mcg Capsule PO 10/16/24 07:59 72 mcg
DAILY RISA Administration
Multivitamins Therapeutic 1 tablet 09/17/24 08:00 09/20/24 08:58
Multivitamin Tablet PO 10/15/24 07:59 1 tablet
DAILY RISA Administration
Olanzapine 5 mg 09/16/24 22:00 09/19/24 20:17
Olanzapine 5 Mg Tablet PO 10/14/24 21:59 5 mg
HS RISA Administration
Polyethylene Glycol 17 grams 09/17/24 20:30 09/20/24 08:57
Polyethylene Glycol Powder 17 Grams Packet PO 10/15/24 07:59 17 grams
DAILY RISA Administration
Potassium Chloride 20 meq 09/17/24 08:00 09/19/24 08:51
Potassium Chloride 20 Meq Extended Release Tablet PO 10/15/24 07:59 20 meq
Q48H RISA Administration
Psyllium Hydrophilic Mucilloid 1 packet 09/17/24 08:00 09/20/24 08:58
Psyllium Packet PO 10/15/24 07:59 1 packet
DAILY RISA Administration
Rosuvastatin Calcium 10 mg 09/17/24 08:00 09/20/24 10:11
Rosuvastatin (Crestor) 10 Mg Tablet PO 10/15/24 07:59 10 mg
DAILY RISA Administration
Sodium Chloride 0 flush 09/16/24 20:00
Sodium Chloride 0.9% (Flush) Syringe IV 10/14/24 19:59
PER PROTOCOL RISA
Sterile Water 20 ml 09/20/24 12:00 09/20/24 11:30
Sterile Water For Injection 20 Ml Vial IV 10/18/24 11:59 20 ml
Q24H RISA Administration
Tamsulosin HCl 0.4 mg 09/17/24 08:00 09/20/24 08:58
Tamsulosin 0.4 Mg Capsule PO 10/15/24 07:59 0.4 mg
DAILY RISA Administration
Venlafaxine HCl 75 mg 09/16/24 22:00 09/19/24 20:17
Venlafaxine 75 Mg Extended Release Capsule PO 10/14/24 21:59 75 mg
HS RISA Administration
Venlafaxine HCl 150 mg 09/17/24 08:00 09/20/24 08:58
Venlafaxine 150 Mg Extended Release Capsule PO 10/15/24 07:59 150 mg
DAILY RISA Administration
Vital Signs
Temp Pulse Resp BP Pulse Ox
97.3 F 77 18 139/66 4
09/20/24 07:30 09/20/24 07:30 09/20/24 07:30 09/20/24 07:30 09/20/24 07:30
Height 6 ft
Actual Weight 100.698 kg
Body Mass Index (BMI) 30.1
Physical Exam
Physical Exam:
General Appearance/Observation: Well-developed, well-nourished individual in no apparent distress.
Pain/Comfort Assessment: Denies
Mood/Affect: Appropriate
Integumentary: Redness of left foot, no wounds/ulcers
Eyes: Conjunctiva/Lids: normal Pupils: pupils equal round and reactive to light and Accommodation
Ears/Nose/Throat: oral mucosa moist, throat clear. Lips/Teeth/Gums: normal
Neck: No muscle spasm or tenderness
Cardiovascular: Heart: regular, no murmur
Pulses: dorsalis pedis 2+ bilaterally
Respiratory: Respiratory Effort/Chest Expansion: normal Auscultation: Coarse sounds bilaterally
Gastrointestinal: abdomen distended, not tender, no guarding/rebound
Genitourinary: No Nguyen
Rectal Exam: Deferred
Extremities: Edema: None Cyanosis: None Trophic changes: None
Neurology Exam:
Orientation: Alert, Oriented to self, Time, Place
Memory: Intact immediately and at 3 minutes
Higher cortical function
Speech: Intact
Repetition: Intact
Comprehension: Intact
Two step command: Intact
Naming: Intact
Cranial Nerves:
CNII: Pupillary light reflex: Intact Visual Field: Intact
CN III, IV, : Extraocular muscles: Intact
CN V: Facial Sensation at Forehead: Intact , Maxilla: Intact, Mandible: Intact
CN VII: Facial movement: Symmetric
CN VIII: Hearing: Normal
CN IX/X: Speech & swallow: Normal, Position of Uvula: Midline
CN XI: Shoulder shrug: Symmetric
CN XII: Tongue protrusion: Midline
Sensory:
Light touch: Absent in bilateral lower extremities up to the pelvis, intact in bilateral upper extremities
Reflexes:
Biceps: 2+ bilaterally
Brachioradialis: 2+ bilaterally
Triceps: 2+ bilaterally
Patellar: absent bilaterally
Achilles: absent bilaterally
Babinski: Neutral bilaterally
Clonus: None
Stephanie: Negative bilaterally
Cerebellar: Ataxia: Not examined
Musculoskeletal:
Motor: (Manual muscle scale 0-5)
Muscle SA EF WE EE FF FA HF KE DF EHL PF
Right 5 4 3 4 4 3 2
Left 5 5 4 4 4 3 2
Tone: Normal in all extremities
Range of Motion: Passively within normal limits in all extremities
Lab Results
09/20/24 04:48
09/20/24 04:48
WBC 5.1 10^3/uL (4.8-10.8) 09/20/24 04:48
Hgb 7.5 g/dL (13.0-18.0) L 09/20/24 04:48
Hct 22.3 % (39.0-52.0) L 09/20/24 04:48
MCV 100.9 fL (80.0-94.0) H 09/20/24 04:48
Plt Count 188 10^3/uL (130-400) D 09/20/24 04:48
Sodium 135 mmol/L (135-145) 09/20/24 04:48
Potassium 3.5 mmol/L (3.5-5.1) 09/20/24 04:48
Chloride 100 mmol/L (98-107) 09/20/24 04:48
Carbon Dioxide 29 mmol/L (22-30) 09/20/24 04:48
BUN 15 mg/dl (9-20) 09/20/24 04:48
Creatinine 0.8 mg/dL (0.7-1.3) 09/20/24 04:48
eGFR > 60.00 09/20/24 04:48
Glucose 141 mg/dl (70-99) H 09/20/24 04:48
Calcium 8.9 mg/dl (8.4-10.2) 09/20/24 04:48
Total Bilirubin 0.7 mg/dl (0.2-1.3) 09/20/24 04:48
AST 35 U/L (17-59) 09/20/24 04:48
ALT 24 U/L (0-50) 09/20/24 04:48
Alkaline Phosphatase 158 U/L (38-126) H 09/20/24 04:48
Total Protein 5.6 g/dl (6.3-8.2) L 09/20/24 04:48
Albumin 3.1 g/dl (3.5-5.0) L 09/20/24 04:48
Diagnostic Results
As per HPI.
Assessment / Plan
Plan
PM&R PT/OT to increase independence with ADLs, improve balance, coordination, endurance, strength, mobility, community reintegration, decreased burden of care on others and family education.
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 In this case benefits appear to outweigh the risks. Continue Vyvgart. Continue to
monitor neurologic status.
Pneumonia: Continue ceftriaxone via port x14 day total course 09/16-09/29 per ID
HTN: continue medications, monitor closely
HLD: continue statin
Atrial fibrillation: Continue anticoagulation and rate control medications.
HFpEF s/p diuresis w IV lasix: EF 60-65%, monitor fluid status, continue lasix prn
Hypothyroidism: levothyroxine
JERMAINE: possible CPAP use.
Chronic anemia: Hg stable. Continue to monitor.
Psych: History of bipolar disorder. Monitor mood, continue home medications.
Skin: monitor for pressure sores on bilateral feet.
Bowel: s/p enema, has had bowel movements. Continue bowel regimen. CT abd/pelvis no evidence of obstruction.
Bladder: Time void, PVRs, PRN straight cath.
DVT Prophylaxis: Heparin
Safety: Continue to reinforce assistance with all transfers.
Code Status: DNR
Dispo (date/plan/equipment needs): Acute rehab. Social history reviewed.
Functional and Medical Goals: Modified Independent with ADL�s, ambulation, transfers
Summary
-
Discharge Destination: Acute rehab
Summary of recommendations:
- Discharge Destination: Acute rehab
Thank you for allowing me to care for your patient. Please contact me with any questions or concerns.
Comments
-
This note was dictated using a voice recognition system. Please excuse any typographical errors from rubber mold maker. If you believe there are any discrepancies, please notify our office.

Documented by User: Fito Alves MD 09/21/24 23:35
Consultation
Consultation Request
Requesting Provider: Dr. Angel Metcalf
Performing Provider: Dr. Alves
Reason for Consultation: Sepsis with acute hypoxic respiratory failure
Medical History
-
History of Present Illness:
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
apnea, bipolar disorder who presented to the ED with fever, sob, hypoxemia (89% on RA) and productive cough. Chest xray, flu and covid negative. Chest Ct showed patchy left upper lobe groundglass densities suspicious for pneumonia and mild bilateral
lower lobe dependent subsegmental atelectasis and/or pneumonia, right greater than left. Was treated for sepsis secondary to likely pneumonia with vancomycin and cefepime. Patient was on 5l oxygen via [place] for acute hypoxic respiratory failure. Blood
cultures came back positive for Klebsiella oxytoca. Of note, patient has a previous history of UTI with the same pathogen x2 within the last year. Urinalysis not suggestive of infection this admission. Echo 09/19/24 showed no evidence of
endocarditis, EF 60-65%. Patient had constipation, although this has been an ongoing problem for him and he takes multiple medications ((linzess, dulcolax, miralax, metamucil) at home. Obstruction series suggestive of adynamic ileus or partial
intestinal obstruction. s/p enema, CT abdomen/pelvis pending. Also seen mild interstitial prominence, suggestive of mild pulmonary vascular congestion. Diuresis was started with IV lasix and antibiotics were adjusted, vancomycin stopped and cefepime
transitioned to ceftriaxone. Repeat blood cultures negative.
DVT prophylaxis heparin
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
Procedure History: appendectomy, cholecystectomy
Family History: Not pertinent
Social History:
Functional Level Premorbidly: For the past 2-3 weeks, patient has needed mod assistance for ambulation with a rolling walker. Before that, provided supervision to min assistance for ambulation with RW.
Functional Level Currently: moderate assistance with transfer, mobility not tested, supervision for lower extremity self care
Tobacco: Denies
Alcohol: Denies
Drug use: Denies
Lives with: Spouse
24-hour assistance available: Yes
Number of floors: 1
# steps to enter: 0
Driving: No
Occupation: Retired
Review of Systems:
Constitutional: (x) abNormal _tired
Eye: (x) Normal _
Ear/Nose/Throat: (x) Normal _
Respiratory: (x) Abnormal _ cough, shortness of breath
Cardiovascular: (x) Normal _
Gastrointestinal: (x) Abnormal _ constipation
Genitourinary: (x) Normal _
Musculoskeletal: (x) Abnormal _ decreased strength
Integumentary: (x) Normal _
Neurologic: (x) Abnormal _ decreased sensation on both legs
Psychiatric: (x) Normal _
Endocrine: (x) Normal _
Hematologic/Lymphatic: (x) Normal _
Allergic/Immunologic: (x) Normal _
Assessment / Plan
Assessment
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
bacteremia, and pneumonia with acute hypoxic respiratory failure with ADL and ambulatory dysfunction.
Plan
PM&R PT/OT to increase independence with ADLs, improve balance, coordination, endurance, strength, mobility, community reintegration, decreased burden of care on others and family education.
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 In this case benefits appear to outweigh the risks. Continue Vyvgart. Continue to
monitor neurologic status.
Pneumonia: Continue ceftriaxone via port x14 day total course 09/16-09/29 per ID, wean off oxygen as able
HTN: continue medications, monitor closely
HLD: continue statin
Atrial fibrillation: Continue anticoagulation and rate control medications.
HFpEF s/p diuresis w IV lasix: EF 60-65%, monitor fluid status, continue lasix prn
Hypothyroidism: levothyroxine
JERMAINE: possible CPAP use.
Chronic anemia: Hg stable. Continue to monitor.
Psych: History of bipolar disorder. Monitor mood, continue home medications.
Skin: monitor for pressure sores on bilateral feet.
Bowel: s/p enema, has had bowel movements. Continue bowel regimen of Linzess and Metamucil. CT abd/pelvis no evidence of obstruction. Adjust medications as necessary.
Bladder: Time void, PVRs, PRN straight cath.
DVT Prophylaxis: Heparin and mechanical
Safety: Continue to reinforce assistance with all transfers.
Code Status: DNR
Dispo (date/plan/equipment needs): Acute rehab. Social history reviewed.
Functional and Medical Goals: Modified Independent with ADL�s, ambulation, transfers
Attending addendum: Patient seen and examined with resident. Agree with resident note with changes as noted below.
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
with Klebsiella bacteremia resulting in ADL and ambulatory dysfunction.
General Appearance/Observation: Well-developed, well-nourished male in no apparent distress. O2 via nasal cannula
Pain/Comfort Assessment: Denies
Mood/Affect: Appropriate
Integumentary: Has blanchable erythema left heel
Eyes: Conjunctiva/Lids: normal Pupils: pupils equal round and reactive to light and Accommodation
Ears/Nose/Throat: oral mucosa moist, throat clear. Lips/Teeth/Gums: normal
Cardiovascular: Heart: regular, no murmur
Pulses: dorsalis pedis 2+ bilaterally
Respiratory: Respiratory Effort/Chest Expansion: normal Auscultation: No wheezes, rales, rhonchi
Gastrointestinal: abdomen not distended, not tender, no guarding/rebound
Genitourinary: No Nguyen
Rectal Exam: Deferred
Extremities: Edema: None Cyanosis: None Trophic changes: None
Neurology Exam:
Orientation: Alert, Oriented to self, Time, Place
Memory: Intact for recent medical concerns
Comprehension: Intact
Two step command: Intact
Cranial Nerves:
CNII: Pupillary light reflex: Intact Visual Field: Intact
CN III, IV, : Extraocular muscles: Intact
CN V: Facial Sensation at Forehead: Intact , Maxilla: Intact, Mandible: Intact
CN VII: Facial movement: Symmetric
CN VIII: Hearing: Normal
CN IX/X: Speech & swallow: Normal, Position of Uvula: Midline
CN XI: Shoulder shrug: Symmetric
CN XII: Tongue protrusion: Midline
Sensory:
Light touch: Absent in bilateral lower extremities up to the pelvis, intact in bilateral upper extremities
Reflexes:
Biceps: 0 bilaterally
Brachioradialis: 0 bilaterally
Triceps: 0 bilaterally
Patellar: 0 bilaterally
Achilles: 0 bilaterally
Babinski: Neutral bilaterally
Clonus: None
Stephanie: Negative bilaterally
Cerebellar: Ataxia: None
Musculoskeletal: Motor: (Manual muscle scale 0-5)
Muscle SA EF WE EE FF FA HF KE DF EHL PF
Right 4 4 3 4 3+ 3+ 4 4 3 2
Left 4 4 4 4 4 4 4 4 3 2
has atrophy in bilateral hand intrinsics
Tone: Normal in all extremities
Range of Motion: Passively within normal limits in all extremities
Assessment
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
bacteremia, and pneumonia with acute hypoxic respiratory failure with ADL and ambulatory dysfunction.
Plan
PM&R PT/OT to increase independence with ADLs, improve balance, coordination, endurance, strength, mobility, community reintegration, decreased burden of care on others and family education.
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 Monahan has significant declines in ability to move about, he would recommend continuing the vyvgart. In this case benefits appear to outweigh the risks. Continue Vyvgart. Continue to
monitor neurologic status.
Pneumonia: Continue ceftriaxone via port x14 day total course 09/16-09/29 per ID
HTN: Has had hypotension, currently on Florinef, monitor
HLD: statin
Atrial fibrillation: Continue anticoagulation and rate control medications.
HFpEF s/p diuresis w IV lasix: EF 60-65%, monitor fluid status, continue lasix prn
Hypothyroidism: levothyroxine
JERMAINE: Consider CPAP use.
Chronic anemia: Hemoglobin stable. Continue to monitor.
Psych: History of bipolar disorder. Klonopin, bupropion, lamotrigine, olanzapine, venlafaxine
Cognitive dysfunction: Razadyne
Skin: monitor for pressure sores on bilateral feet.
Bowel: s/p enema, has had bowel movements. Continue bowel regimen. CT abd/pelvis no evidence of obstruction.
Bladder: Flomax, time void, PVRs, PRN straight cath.
DVT Prophylaxis: Mechanical and heparin
Safety: Continue to reinforce assistance with all transfers.
Code Status: DNR
Dispo (date/plan/equipment needs): Acute rehab. Social history reviewed.
Functional and Medical Goals: Modified Independent with ADL�s, ambulation, transfers
Discharge destination: Acute inpatient rehabilitation
A total of 60 minutes were spent with the patient preparing for the evaluation, obtaining history, performing examination and evaluation, counseling, data review, case management, care coordination, customs and border protection officer, and EMR documentation.
Summary
-
Summary of recommendations:
- Discharge Destination: Acute rehab
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 Monahan has significant declines in ability to move about, he would recommend continuing the vyvgart. In this case benefits appear to outweigh the risks. Continue Vyvgart. Continue to
monitor neurologic status. Reviewed with ID and patient's .
Pneumonia: Continue ceftriaxone via port x14 day total course 09/16-09/29 per ID, wean off oxygen as able
Bowel: s/p enema, has had bowel movements. Continue bowel regimen of Linzess and Metamucil. CT abd/pelvis no evidence of obstruction. Adjust medications as necessary.
Bladder: Time void, PVRs, PRN straight cath.
DVT Prophylaxis: Heparin and mechan
Thank you for allowing me to care for your patient. Please contact me with any questions or concerns.
--- NOTE | 2024-09-21 13:53 | CM ---
Chart reviewed. Plan is for acute rehab at d/c. Physiatry assessment ordered and is pending at this time. SILVER messaged El/Michael liaison regarding pending assessment. Therapy to see patient today for updated evaluation as Michael is considering for
acute. Patient is requiring a continuation of IV abx thru 09/29, SILVER made El aware, script is on chart. Patient is now on room air.
Plan: Acute rehab. Physiatry assessment pending
[2024-09-21 14:05] VITALS: BP 116/62; PULSE 75; PULSE 77; O2SAT 95; O2SAT 96
[2024-09-21] MEDS: STERILE WATER FOR INJECTION 20 ML IV (14:08)
[2024-09-21] MEDS: ROCEPHIN 2000 MG IV (14:08)
[2024-09-21 15:44] VITALS: BP 127/57
[2024-09-21] MEDS: HEPARIN 5000 UNITS SC (20:10)
[2024-09-21] MEDS: EFFEXOR XR 75 MG PO (20:11)
[2024-09-21] MEDS: ZYPREXA 5 MG PO (20:11)
[2024-09-21] MEDS: KLONOPIN 0.5 MG PO (20:12)
[2024-09-21 23:55] VITALS: BP 145/73
[2024-09-22] MEDS: SYNTHROID 75 MCG PO (05:46)
[2024-09-22] MEDS: ANESTHETIC LOZENGE 1 LOZENGE PO (05:59)
[2024-09-22] MEDS: ROBITUSSIN 100 MG PO (05:59)
[2024-09-22 07:14] LABS: Hematocrit 25.8 % (39.0-52.0); Hemoglobin 8.9 g/dL (13.0-18.0); Mean Corp Hgb Conc. 34.5 g/dL (33.0-37.0); Mean Corpuscular Hgb 34.6 pg (27.0-31.0); Mean Corpuscular Volume 100.4 fL (80.0-94.0); Mean Platelet Volume 10.1 fL (7.4-10.4); Platelet Count 251 10^3/uL (130-400); Red Blood Cell Count 2.57 10^6/uL (4.70-6.10); White Blood Cell Count 4.2 10^3/uL (4.8-10.8)
[2024-09-22 07:46] LABS: ALT (SGPT) 28 U/L (0-50); AST (SGOT) 32 U/L (17-59); Albumin 3.9 g/dl (3.5-5.0); Alkaline Phosphatase 159 U/L (38-126); Blood Urea Nitrogen 14 mg/dl (9-20); Calcium 9.4 mg/dl (8.4-10.2); Carbon Dioxide 30 mmol/L (22-30); Chloride 95 mmol/L (98-107); Estimated Creatinine Clearance 92 ml/min; Glucose 151 mg/dl (70-99); Potassium 3.6 mmol/L (3.5-5.1); Sodium 137 mmol/L (135-145); Total Bilirubin 0.7 mg/dl (0.2-1.3); Total Protein 6.5 g/dl (6.3-8.2); eGFR > 60.00
[2024-09-22 07:53] VITALS: BP 137/77
[2024-09-22] MEDS: LINZESS 72 MCG PO (08:32)
[2024-09-22] MEDS: METAMUCIL, KONSYL 1 PACKET PO (08:33)
[2024-09-22] MEDS: HEPARIN 5000 UNITS SC ×2 (08:33→20:51)
[2024-09-22] MEDS: DULCOLAX 10 MG PO (08:33)
[2024-09-22] MEDS: CRESTOR 10 MG PO (08:33)
[2024-09-22] MEDS: LOW STRENGTH ASPIRIN 81 MG PO (08:33)
[2024-09-22] MEDS: RAZADYNE 8 MG PO ×2 (08:33→20:48)
[2024-09-22] MEDS: FLOMAX 0.4 MG PO (08:33)
[2024-09-22] MEDS: LAMICTAL 200 MG PO ×2 (08:33→20:50)
[2024-09-22] MEDS: FLORINEF 0.1 MG PO (08:33)
[2024-09-22] MEDS: MIRALAX 17 GRAMS PO (08:34)
[2024-09-22] MEDS: EFFEXOR XR 150 MG PO (08:34)
[2024-09-22] MEDS: WELLBUTRIN SR (12 hour sustained release) 100 MG PO (08:34)
[2024-09-22] MEDS: THERAGRAN 1 TABLET PO (08:34)
--- NOTE | 2024-09-22 10:20 | W.PN.ID1 ---
Date of Service
Date of Service: September 22, 2024
Today's Communication
- c/w ceftriaxone via port x14 day total course 09/16-09/29
- script provided to manager of case 09/21
- stable for dc from ID perspective
Assessment / Plan
Pneumonia due to K oxytoca (CAP)
K oxytoca bacteremia
Acute Hypoxemic resp failure
Immunosuppression
CIDP
Port
- 09/16 CT chest with AMINA and bilateral lower lobe infiltrates; TTE: no significant change
- two sets of blood cultures 09/18 and 09/20 no growth to date
- c/w ceftriaxone via port x14 day total course 09/16-09/29
- script provided to manager of case 09/21
- stable for dc from ID perspective
Chief Complaint
-: Pneumonia and Bacteremia
Subjective / Review of Systems
afebrile
bp stable
Vital Signs / Physical Exam
Vital Signs
Vital Signs
Temp Pulse Resp BP Pulse Ox
98.4 F 78 16 137/77 96
09/22/24 07:53 09/22/24 07:53 09/22/24 07:53 09/22/24 07:53 09/22/24 07:53
Physical Exam
Constitutional: No Acute Distress
Cardiovascular: Regular Rate
Pulmonary: Symmetric and Non Labored
Gastrointestinal: Non Distended
Skin: Dry; Negative Rash or Jaundice
Neurological: Awake
Objective Data
Lab Data
Lab Results
09/22/24 06:32
09/22/24 06:32
Estimated Creat Clear 92 ml/min 09/22/24 06:32
Lactic Acid 1.0 mmol/L (0.7-2.0) 09/16/24 18:54
Total Bilirubin 0.7 mg/dl (0.2-1.3) 09/22/24 06:32
AST 32 U/L (17-59) 09/22/24 06:32
ALT 28 U/L (0-50) 09/22/24 06:32
Alkaline Phosphatase 159 U/L (38-126) H 09/22/24 06:32
Most recent labs reviewed.
Micro Results:
09/18/24 10:11 Blood Culture - Preliminary
Blood/Venous No Growth in 4 days- Final report to follow
09/20/24 11:36 Blood Culture - Preliminary
Blood/Venous No Growth in 24 hours- Final report to follow
09/16/24 13:53 Blood Culture - Final
Blood/Venous Klebsiella oxytoca
Gram Stain - Final
09/16/24 13:53 Blood Culture - Final
Blood/Venous Klebsiella oxytoca
Gram Stain - Final
09/16/24 13:53 Urine Culture - Final
Urine NO GROWTH
09/16/24 13:18 Influenza Types A & B (MAGGIE) - Final
Nasal Swab Negative for Influenza A & B, NAAT
Negative results must be combined with clinical observations
and patient history.
Nucleic Acid Amplification test (NAAT)performed on the
[employer] platform.
[2024-09-22] MEDS: STERILE WATER FOR INJECTION 20 ML IV (13:02)
[2024-09-22] MEDS: ROCEPHIN 2000 MG IV (13:02)
--- NOTE | 2024-09-22 13:24 | W.PN.HOSP.TC ---
Today's Communication/Plan
-
awaiting CM clearance
weaned to ra
dc ready
abx
Assessment / Plan
Assessment / Plan
# Sepsis - POA
# Klebsiella bacteremia
ECHO with no obvious vegetation, has hx of urine with Klebsiella oxytoca
-Chest x-ray negative
-COVID and flu negative
-CT Chest images reviewed personally, report as above
-Blood culture both sets growing Klebsiella Oxytoca, susceptibility report pending.
-Discontinue vancomycin, cefepime - switched to Ceftriaxone - c/w ceftriaxone via port x14 day total course 09/16-09/29
-ID consulted
-repeat cultures drawn
# Acute hypoxic respiratory failure
#Acute HFpEF
s/p iv lasix, was on ivf - for sepsis - not going to add as home med; can defer outpt
-wean o2 as tolerated
-Wean off oxygen as possible
-o2 goal >92%
#Constipation
-had bm 3/9 and tolerating diet - doubt partial obstruction, more than likely adynamic ileus
-Nondistended abd
-OOb to chair, early ambulation
-Enema today again
-CT imaging without evidence of obstruction
-passing BMs, non distended
-Resume diet
#Chronic inflammatory demyelinating polyradiculoneuropathy
-On Vyvgart infusions
-ID spoke to Neurolgoist (Dr. Rick) at [place] and feels that Mr Monahan has significant declines in ability to move about; Benefits outweight risks - restart Vyvgart - Spouse asked to bring it in
#Hyponatremia
-mild
-monitor
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
-Continue fludrocortisone
# Macrocytic Anemia
-Denies of having any GIB/PUD h/o
-b12/folate WNL
-component of dilution?
-monitor hgb
-F/u tsh - wnl
Essential hypertension
Hypothyroidism
Obstructive sleep apnea
Chronic anemia - monitor
Bipolar disorder-Continue bupropion, clonazepam, lamotrigine, olanzapine, venlafaxine, galantamine
Hyperlipidemia-Continue statin
BPH-continue tamsulosin
Hypokalemia
� Monitor and replete
DNR/DNI
DVT prophylaxis�heparin
DC ready - await CM clearance
Anticipated Discharge: Within 24 hours
Subjective/Interval History
-
Date of Service: September 22, 2024
No acute events, 0.5 L O2
Objective Data
-
Labs:
Laboratory Results
09/22/24
06:32
WBC 4.2 L
Hgb 8.9 L
Hct 25.8 L
Plt Count 251
Sodium 137
Potassium 3.6
Chloride 95 L
Carbon Dioxide 30
BUN 14
Creatinine 0.7
Glucose 151 H
Calcium 9.4
Total Bilirubin 0.7
AST 32
ALT 28
Alkaline Phosphatase 159 H
Vital Signs:
Vital Signs
Temp Pulse Resp BP Pulse Ox
98.4 F 78 16 137/77 94
09/22/24 07:53 09/22/24 07:53 09/22/24 07:53 09/22/24 07:53 09/22/24 10:54
I&O
09/21/24 09/22/24 09/23/24
06:59 06:59 06:59
Intake Total 780 / 780 720 / 720
Output Total 3100 / 3100 1850 / 1850
Balance -2320 / -2320 -1130 / -1130
Review of Systems
-
History Source: Patient
All other systems: Not reviewed unless documented
Physical Exam
-
General: No Apparent Distress and Comfortable
HEENT: Oxygen (.5-1)
Respiratory: Rhonchi
Cardiac: Regular Rhythm and S1/S2; Negative Murmur or Rub
GI: Soft, Nontender and Nondistended
Musculoskeletal: No Edema
Neuro: Awake, Alert, Oriented, No Motor Deficits and Nonfocal/Grossly Intact
Psych: Calm
Data Reviewed
-
Diagnostic Radiology: Report Reviewed by me
CT Scan: Report Reviewed by me
Labs: Labs Reviewed by me
--- NOTE | 2024-09-22 15:10 | CM ---
Per El, patient can transfer to [place] today. Hospitalist will plan for d/c first thing tomorrow morning.
CM updated patient's daughter via phone
Met w/ patient, spouse and family bedside, informed of [facility] acceptance and transfer tomorrow. Patient and family pleased and appreciative
IMM verbally reviewed, copy provided, copy placed on chart
Rodriguez Magalis
Report: [phone]

Plan: D/c to [place] tomorrow
[2024-09-22 16:02] VITALS: BP 142/72
--- NOTE | 2024-09-22 16:05 | PTCARENOTE ---
Assumed care of patient at 15:00. No noted changes in assessment.
[2024-09-22] MEDS: KLONOPIN 0.5 MG PO (20:50)
[2024-09-22] MEDS: EFFEXOR XR 75 MG PO (20:51)
[2024-09-22] MEDS: ZYPREXA 5 MG PO (20:51)
[2024-09-22 23:31] VITALS: BP 145/74
[2024-09-23] MEDS: SYNTHROID 75 MCG PO (02:57)
[2024-09-23 07:35] VITALS: BP 144/86
[2024-09-23 08:22] LABS: ALT (SGPT) 26 U/L (0-50); AST (SGOT) 35 U/L (17-59); Albumin 3.6 g/dl (3.5-5.0); Alkaline Phosphatase 141 U/L (38-126); Blood Urea Nitrogen 10 mg/dl (9-20); Calcium 9.3 mg/dl (8.4-10.2); Carbon Dioxide 30 mmol/L (22-30); Chloride 99 mmol/L (98-107); Estimated Creatinine Clearance 92 ml/min; Glucose 147 mg/dl (70-99); Potassium 3.8 mmol/L (3.5-5.1); Sodium 137 mmol/L (135-145); Total Bilirubin 0.5 mg/dl (0.2-1.3); Total Protein 6.4 g/dl (6.3-8.2); eGFR > 60.00
[2024-09-23] MEDS: HEPARIN 5000 UNITS SC (08:25)
[2024-09-23] MEDS: LINZESS 72 MCG PO (08:25)
[2024-09-23] MEDS: METAMUCIL, KONSYL 1 PACKET PO (08:25)
[2024-09-23 08:26] LABS: Hematocrit 27.2 % (39.0-52.0); Hemoglobin 9.2 g/dL (13.0-18.0); Mean Corp Hgb Conc. 33.8 g/dL (33.0-37.0); Mean Corpuscular Hgb 33.9 pg (27.0-31.0); Mean Corpuscular Volume 100.4 fL (80.0-94.0); Mean Platelet Volume 9.9 fL (7.4-10.4); Platelet Count 322 10^3/uL (130-400); Red Blood Cell Count 2.71 10^6/uL (4.70-6.10); Red Cell Dist. Width 14.9 % (11.5-14.5); White Blood Cell Count 4.2 10^3/uL (4.8-10.8)
[2024-09-23] MEDS: LAMICTAL 200 MG PO (08:26)
[2024-09-23] MEDS: WELLBUTRIN SR (12 hour sustained release) 100 MG PO (08:26)
[2024-09-23] MEDS: MIRALAX 17 GRAMS PO (08:26)
[2024-09-23] MEDS: FLORINEF 0.1 MG PO (08:26)
[2024-09-23] MEDS: DULCOLAX 10 MG PO (08:26)
[2024-09-23] MEDS: KCL 20 MEQ PO (08:26)
[2024-09-23] MEDS: EFFEXOR XR 150 MG PO (08:26)
[2024-09-23] MEDS: LOW STRENGTH ASPIRIN 81 MG PO (08:26)
[2024-09-23] MEDS: RAZADYNE 8 MG PO (08:26)
[2024-09-23] MEDS: FLOMAX 0.4 MG PO (08:26)
[2024-09-23] MEDS: THERAGRAN 1 TABLET PO (08:26)
[2024-09-23] MEDS: CRESTOR 10 MG PO (08:26)
--- NOTE | 2024-09-23 10:57 | CM ---
Addendum entered by Irma Kim 09/23/24 15:40:
[facility] has bed ready.
Original Note:
Bed available at [facility] for today, they will call with time, probably after 1 pm. updated.
Michael Blancas
Report: [phone]

Plan: D/c to [facility] today
[2024-09-23] MEDS: ROCEPHIN 2000 MG IV (11:36)
[2024-09-23] MEDS: STERILE WATER FOR INJECTION 20 ML IV (11:36)
[2024-09-23] MEDS: KLONOPIN 0.5 MG PO (11:39)
--- NOTE | 2024-09-23 11:57 | W.PN.HOSP.TC ---
Today's Communication/Plan
-
Monitor vital signs
see plan
Discharge today to [facility]
Continue antibiotics
Time of discharge 38 minutes
Assessment / Plan
Assessment / Plan
# Sepsis - POA
# Klebsiella bacteremia
ECHO with no obvious vegetation, has hx of urine with Klebsiella oxytoca
-Chest x-ray negative
-COVID and flu negative
-CT Chest images reviewed personally, report as above
-Blood culture both sets growing Klebsiella Oxytoca, susceptibility report pending.
-Discontinue vancomycin, cefepime - switched to Ceftriaxone - c/w ceftriaxone via port x14 day total course 09/16-09/29
-ID following
-repeat cultures NGTD
# Acute hypoxic respiratory failure
#Acute HFpEF
s/p iv lasix, was on ivf - for sepsis - not going to add as home med; can defer outpt
-wean o2 as tolerated
-Wean off oxygen as possible
-o2 goal >92%
#Constipation
-had bm 09/18 and tolerating diet - doubt partial obstruction, more than likely adynamic ileus
-Nondistended abd
-OOb to chair, early ambulation
now with BM
-CT imaging without evidence of obstruction
-passing BMs, non distended
-Resume diet
#Chronic inflammatory demyelinating polyradiculoneuropathy
-On Vyvgart infusions
-ID spoke to Neurolgoist (Dr. Rick) at [place] and feels that Mr Hero has significant declines in ability to move about; Benefits outweight risks - restart Vyvgart - Spouse asked to bring it in
#Hyponatremia
-mild
-monitor
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
-Continue fludrocortisone
# Macrocytic Anemia
-Denies of having any GIB/PUD h/o
-b12/folate WNL
-component of dilution?
-monitor hgb
-F/u tsh - wnl
Essential hypertension
Hypothyroidism
Obstructive sleep apnea
Chronic anemia - monitor
Bipolar disorder-Continue bupropion, clonazepam, lamotrigine, olanzapine, venlafaxine, galantamine
Hyperlipidemia-Continue statin
BPH-continue tamsulosin
Hypokalemia
� Monitor and replete
DNR/DNI
DVT prophylaxis�heparin
Discussed with piano case and bench assembler. Plan for [facility] today
General: No Apparent Distress and Comfortable
HEENT: Oxygen (.5-1)
Respiratory: Rhonchi
Cardiac: Regular Rhythm and S1/S2; Negative Murmur or Rub
GI: Soft, Nontender and Nondistended
Musculoskeletal: No Edema
Neuro: Awake, Alert, Oriented, No Motor Deficits and Nonfocal/Grossly Intact
Psych: Calm
Anticipated Discharge: Today
Subjective/Interval History
-
Date of Service: September 23, 2024
Denies pain
Objective Data
-
Labs:
Laboratory Results
09/23/24
06:53
WBC 4.2 L
Hgb 9.2 L
Hct 27.2 L
Plt Count 322 D
Sodium 137
Potassium 3.8
Chloride 99
Carbon Dioxide 30
BUN 10
Creatinine 0.7
Glucose 147 H
Calcium 9.3
Total Bilirubin 0.5
AST 35
ALT 26
Alkaline Phosphatase 141 H
Vital Signs:
Vital Signs
Temp Pulse Resp BP Pulse Ox
98.4 F 79 20 144/86 93
09/23/24 07:35 09/23/24 07:35 09/23/24 07:35 09/23/24 07:35 09/23/24 07:35
I&O
09/22/24 09/23/24 09/24/24
06:59 06:59 06:59
Intake Total 720 / 720 1050 / 1050 240 / 240
Output Total 0 / 1849 1950 / 1950 400 / 400
Balance -1130 / -1130 -900 / -900 -160 / -160
--- NOTE | 2024-09-23 12:06 | W.DCSUMMARY ---
Discharge Summary
Discharge Data
Date of Admission: 09/16/24
Date of Discharge: 09/23/24
-
Pending Results: No
Hospital Course
78-year-old male with past medical history of chronic inflammatory demyelinating polyradicularneuropathy, macrocytic anemia, orthostatic hypotension, hypothyroidism, obstructive sleep apnea, chronic anemia, bipolar disorder, hyperlipidemia, BPH came
to the hospital with sepsis secondary to community-acquired pneumonia. Blood culture initially grew Klebsiella. Patient was seen by factious disease throughout hospitalization and antibiotics were narrowed down to ceftriaxone prior to discharge to
complete the course. Patient also had acute hypoxic respiratory failure which over time continue to improve. Initially patient required IV Lasix for congestive heart failure which continue to improve over time. Echocardiogram was done which
showed preserved ejection fraction. Patient was also evaluated by physical therapy who recommended acute rehab. Once his symptoms continue to improve he was then discharged to acute rehab with instructions to follow-up with all his physicians
outpatient.
Discharge Plan
-
Patient Disposition: Acute Rehab Facility
Discharge Diagnosis/Procedures: Sepsis secondary to community-acquired pneumonia
Klebsiella bacteremia
Acute hypoxemic respiratory failure
Suspected CHF exacerbation
Constipation
Diet: As tolerated and Low Cholesterol
Activity: With assistance and As tolerated
Driving Restrictions: Not until seen by your Dr
Bathing Restrictions: None
Blood Work: CBC, CMP at rehab next week
Activity Restrictions/Additional Instructions:
c/w ceftriaxone via port x14 day total course 09/16-09/29
Referrals:
Richy Johns MD [Active] -
Peyman Moore DO [Family Provider] - in less than 1 week
Bobbi Justice MD [Active] -
Prescriptions:
New
bisacodyl 10 mg Suppository
10 mg HI DAILYPRN PRN (Reason: constipation) Qty: 0 0RF
Chloraseptic Sore Throat 6-10 mg Lozenge
1 gina PO Q4HPRN PRN (Reason: sorethroat) Qty: 0 0RF
guaifenesin 100 mg/5 mL Liquid
100 mg PO Q4HPRN PRN (Reason: cough) Qty: 0 0RF
ceftriaxone 2 gram Recon Soln
2,000 mg IV Q24H Qty: 0 0RF
acetaminophen 325 mg Tablet
650 mg PO Q4HPRN PRN (Reason: mild pain/MILLER/temp> 100.4F) Qty: 0 0RF
ipratropium-albuterol 0.5 mg-3 mg(2.5 mg base)/3 mL Solution For Nebulization
3 ml inhalation R Q4HPRN PRN (Reason: sob/wheeze) Qty: 0 0RF
Continued
olanzapine 5 MG tablet
5 mg PO HS
galantamine 8 MG tablet
8 mg PO BID
omega-3 fatty acids-fish oil 1 EACH capsule
1 ea PO DAILY
venlafaxine [Effexor XR] 150 MG capsule,extended release 24hr
150 mg PO DAILY
bupropion HCl 100 MG tablet sustained-release 12 hr
100 mg PO DAILY
fludrocortisone 0.1 MG tablet
0.1 mg PO DAILY
rosuvastatin 10 MG tablet
10 mg PO DAILY
clonazepam 0.5 MG tablet
0.5 mg PO HS
tamsulosin 0.4 MG capsule
0.4 mg PO DAILY Qty: 30 0RF
aspirin 81 MG tablet,chewable
81 mg PO DAILY 0RF
polyethylene glycol 3350 17 GRAMS powder in packet
17 grams PO DAILY Qty: 30 0RF
venlafaxine 75 mg Capsule,Extended Release 24hr
75 mg PO HS
lamotrigine 200 mg Tablet
200 mg PO BID
clonazepam 0.5 mg Tablet
0.5 mg PO DAILYPRN PRN (Reason: anxiety)
therapeutic multivitamin Tablet
1 tab PO DAILY
bisacodyl [Dulcolax (bisacodyl)] 5 mg Tablet,Delayed Release (Dr/Ec)
5 mg PO DAILY
mirabegron [Myrbetriq] 50 mg Tablet Extended Release 24 Hr
50 mg PO DAILY
potassium chloride 20 mEq Tablet Extended Release
20 meq PO Q48H
Metamucil 3.4 gram/5.4 gram Powder
1 tbsp PO DAILY
Vyvgart Hytrulo 1,008 mg-11,200 unit/5.6 mL Solution
5.6 ml SC TH
levothyroxine 75 mcg Tablet
75 mcg PO DAILY
Linzess 72 mcg Capsule
72 mcg PO DAILY
Discontinued
ibuprofen [Advil] 200 mg Tablet
400 mg PO Q6HPRN PRN (Reason: mild pain)
Discharge Orders:
Discharge Patient (As Directed); Ordered 09/23/24
Ordered By: Jarod Ferreira
Discharge Date and Time
Discharge Date/Time: 09/23/24 15:40
Print Language: ALBANIAN
--- NOTE | 2024-09-23 14:30 | W.PN.ID1 ---
Date of Service
Date of Service: September 23, 2024
Today's Communication
- c/w ceftriaxone via port x14 day total course 09/16-09/29
- script provided to caseworker 09/21
- stable for dc from ID perspective
Assessment / Plan
Pneumonia due to K oxytoca (CAP)
K oxytoca bacteremia
Acute Hypoxemic resp failure
Immunosuppression
CIDP
Port
- 09/16 CT chest with AMINA and bilateral lower lobe infiltrates; TTE: no significant change
- two sets of blood cultures 09/18 and 09/20 no growth to date
- c/w ceftriaxone via port x14 day total course 09/16-09/29
- script provided to caseworker 09/21
- stable for dc from ID perspective
Chief Complaint
-: Pneumonia and Bacteremia
Subjective / Review of Systems
afebrile
bp stable
no complaints
Vital Signs / Physical Exam
Vital Signs
Vital Signs
Temp Pulse Resp BP Pulse Ox
98.4 F 79 20 144/86 93
09/23/24 07:35 09/23/24 07:35 09/23/24 07:35 09/23/24 07:35 09/23/24 07:35
Physical Exam
Constitutional: No Acute Distress
Cardiovascular: Regular Rate and S1/S2; Negative Murmur or Rub
Pulmonary: Clear and Symmetric; Negative Wheezes or Rales
Gastrointestinal: Soft, Non Tender, Non Distended and Normal Bowel Sounds
Skin: Warm and Dry; Negative Rash or Jaundice
Objective Data
Lab Data
Lab Results
09/23/24 06:53
09/23/24 06:53
Estimated Creat Clear 92 ml/min 09/23/24 06:53
Lactic Acid 1.0 mmol/L (0.7-2.0) 09/16/24 18:54
Total Bilirubin 0.5 mg/dl (0.2-1.3) 09/23/24 06:53
AST 35 U/L (17-59) 09/23/24 06:53
ALT 26 U/L (0-50) 09/23/24 06:53
Alkaline Phosphatase 141 U/L (38-126) H 09/23/24 06:53
Most recent labs reviewed.
Micro Results:
09/20/24 11:36 Blood Culture - Preliminary
Blood/Venous No Growth in 72 hours- Final report to follow
09/18/24 10:11 Blood Culture - Final
Blood/Venous No Growth - Final Report
09/16/24 13:53 Blood Culture - Final
Blood/Venous Klebsiella oxytoca
Gram Stain - Final
09/16/24 13:53 Blood Culture - Final
Blood/Venous Klebsiella oxytoca
Gram Stain - Final
09/16/24 13:53 Urine Culture - Final
Urine NO GROWTH
09/16/24 13:18 Influenza Types A & B (MAGGIE) - Final
Nasal Swab Negative for Influenza A & B, NAAT
Negative results must be combined with clinical observations
and patient history.
Nucleic Acid Amplification test (NAAT)performed on the
[employer] platform.
[2024-09-23 15:34] VITALS: BP 152/82
== END 2024-09-23 15:40 | DRG 871 ==
LOC: 4 EAST ACU 16:11
PROVIDERS: Emergency Medicine; Hospitalist; Internal Medicine; Physician Assistant; ADMITTING PHYSICIAN Hospitalist; ATTENDING PHYSICIAN Internal Medicine; CONSULT PHYSICIAN Physical Medicine & Rehabilitation; CONSULT PHYSICIAN Student in an Organized Health Care Education/Training Program; EMERGENCY PHYSICIAN Student in an Organized Health Care Education/Training Program; FAMILY PHYSICIAN Family Medicine
DX: A41.59 Other Gram-negative sepsis (principal); J18.9 Pneumonia, unspecified organism; J96.01 Acute respiratory failure with hypoxia; G61.81 Chronic inflammatory demyelinating polyneuritis; I50.30 Unspecified diastolic (congestive) heart failure; D84.9 Immunodeficiency, unspecified; E87.1 Hypo-osmolality and hyponatremia; E87.20 Acidosis, unspecified; N17.9 Acute kidney failure, unspecified; D84.821 Immunodeficiency due to drugs; Z87.891 Personal history of nicotine dependence; Z11.52 Encounter for screening for COVID-19; Z66 Do not resuscitate; I95.1 Orthostatic hypotension; I11.0 Hypertensive heart disease with heart failure; E03.9 Hypothyroidism, unspecified; G47.33 Obstructive sleep apnea (adult) (pediatric); F31.9 Bipolar disorder, unspecified; E78.5 Hyperlipidemia, unspecified; N40.0 Benign prostatic hyperplasia without lower urinary tract symptoms; Z87.440 Personal history of urinary (tract) infections; Z79.01 Long term (current) use of anticoagulants; I48.91 Unspecified atrial fibrillation; K59.09 Other constipation; D53.9 Nutritional anemia, unspecified; E87.6 Hypokalemia; B96.1 Klebsiella pneumoniae [K. pneumoniae] as the cause of diseases classified elsewhere; Z79.60 Long term (current) use of unspecified immunomodulators and immunosuppressants; Z79.899 Other long term (current) drug therapy; Z90.49 Acquired absence of other specified parts of digestive tract; Z95.0 Presence of cardiac pacemaker
CPT/HCPCS: 51798; 71046; 71260; 74018; 74022; 74176; 80048; 80053; 80202; 81003; 81015; 82607; 82746; 82805; 83605; 83880; 84443; 84484; 85025; 85027; 86850; 86900; 86901; 87040; 87086; 87149; 87186; 87205; 87502; 87811; 93005; 93306; 94640; 96361; 96365; 96366; 96375; 97116; 97162; 97166; 97535; 99285; Q9967

== ENCOUNTER 2024-10-21 12:43 | Outpatient (RCR) | payer MEDICARE, OTHER, SELFPAY ==
[2024-10-21 13:33] VITALS: BP 131/64
== END 2024-11-09 23:59 | disposition home or self-care (01) ==
LOC: OID 12:43
PROVIDERS: ATTENDING PHYSICIAN Surgery
DX: G61.81 Chronic inflammatory demyelinating polyneuritis (principal); R60.0 Localized edema; I73.9 Peripheral vascular disease, unspecified
CPT/HCPCS: 96523

== ENCOUNTER → 2024-11-04 13:16 | Outpatient (REF) | payer MEDICARE, OTHER, SELFPAY | LOC: RAD 13:16 | PROVIDERS: ATTENDING PHYSICIAN Student in an Organized Health Care Education/Training Program; FAMILY PHYSICIAN Family Medicine | DX: M25.511 Pain in right shoulder (principal) | CPT/HCPCS: 23350; 73040; 73201 ==

== ENCOUNTER 2024-11-07 15:51 | Outpatient (RCR) | payer MEDICARE, OTHER, SELFPAY | END 2024-11-07 23:59 | disposition home or self-care (01) | LOC: ROT 15:51 | PROVIDERS: ATTENDING PHYSICIAN Physical Medicine & Rehabilitation; FAMILY PHYSICIAN Family Medicine | DX: G61.81 Chronic inflammatory demyelinating polyneuritis (principal); R26.89 Other abnormalities of gait and mobility; Z73.6 Limitation of activities due to disability; M62.81 Muscle weakness (generalized); R29.6 Repeated falls | CPT/HCPCS: 97110; 97112; 97140; 97163; 97167; 97530; 97535 ==

== ENCOUNTER → 2024-11-09 07:34 | Outpatient (REF) | payer MEDICARE, OTHER, SELFPAY ==
[2024-11-09 10:02] LABS: % Basophils 0.3 % (0-2); % Eosinophils 2.4 % (0-6); % Immature Granulocytes 0.7 % (0-0.5); % Lymphocytes 45.6 % (20.5-51.1); Absolute Eosinophils 0.1 10^3/uL (0-0.7); Absolute Lymphocytes 2.6 10^3/uL (1.2-3.4); Absolute Monocytes 0.6 10^3/uL (0.1-0.6); Absolute Neutrophils 2.3 10^3/uL (1.4-6.5); Hemoglobin 12.1 g/dL (13.0-18.0); Mean Corp Hgb Conc. 33.6 g/dL (33.0-37.0); Mean Corpuscular Hgb 34.4 pg (27.0-31.0); Mean Corpuscular Volume 102.3 fL (80.0-94.0); Mean Platelet Volume 11.2 fL (7.4-10.4); Nucleated Red Blood Cells % 0 % (-); Platelet Count 200 10^3/uL (130-400); Red Blood Cell Count 3.52 10^6/uL (4.70-6.10); Red Cell Dist. Width 13.2 % (11.5-14.5); White Blood Cell Count 5.8 10^3/uL (4.8-10.8)
[2024-11-09 10:22] LABS: ALT (SGPT) 20 U/L (0-50); AST (SGOT) 25 U/L (17-59); Alkaline Phosphatase 87 U/L (38-126); Blood Urea Nitrogen 18 mg/dl (9-20); Calcium 9.8 mg/dl (8.4-10.2); Carbon Dioxide 27 mmol/L (22-30); Chloride 101 mmol/L (98-107); Glucose 170 mg/dl (70-99); HDL Cholesterol 55 mg/dl; LDL Cholesterol, Calculated 49 mg/dl; Potassium 4.1 mmol/L (3.5-5.1); Sodium 142 mmol/L (135-145); Total Bilirubin 0.6 mg/dl (0.2-1.3); Total Cholesterol 149 mg/dl (50-199); Total Protein 7.6 g/dl (6.3-8.2); Triglyceride 225 mg/dl (10-149); Very Low Density Lipoprotein 45 mg/dl (0-30); eGFR > 60.00
[2024-11-09 10:30] LABS: Glycohemoglobin (HgbA1c) 5.8 % (4.0-5.6)
[2024-11-09 10:36] LABS: Free T4 1.31 ng/dl (0.78-2.19)
[2024-11-09 10:50] LABS: TSH 5.58 uIU/ml (0.47-4.68)
[2024-11-12 03:13] LABS: Albumin 4.57 g/dL (3.75-5.01); Alpha 1 Globulin 0.35 g/dL (0.19-0.46); Alpha 2 Globulin 0.86 g/dL (0.48-1.05); Free Kappa Light Chains,Quant 35.79 mg/L (3.30-19.40); Free Lambda Light Chains,Quant 23.61 mg/L (5.71-26.30); IgA 396 mg/dL (68-408); IgG 696 mg/dL (768-1632); IgM 101 mg/dL (35-263); Immunofixation Electrophoresis IFE Done; Kappa/Lambda Fr Light Ratio 1.52 (0.26-1.65); Total Protein-Electrophoresis 7.5 g/dL (6.3-8.2)
== END ==
LOC: HWLAB 07:34
PROVIDERS: ATTENDING PHYSICIAN Internal Medicine Cardiovascular Disease; FAMILY PHYSICIAN Family Medicine; OTHER PHYSICIAN Nurse Practitioner Psychiatric/Mental Health; REFERRING PHYSICIAN Psychiatry & Neurology Neurology
DX: G61.81 Chronic inflammatory demyelinating polyneuritis (principal); E78.00 Pure hypercholesterolemia, unspecified; R73.03 Prediabetes; R73.9 Hyperglycemia, unspecified
CPT/HCPCS: 36415; 80053; 80061; 82784; 83036; 83521; 84155; 84165; 84439; 84443; 85025; 86334

== ENCOUNTER 2024-11-17 15:56 | Outpatient (RCR) | payer MEDICARE, OTHER, SELFPAY | END 2024-12-02 07:09 | disposition home or self-care (01) | LOC: ROT 15:56 | PROVIDERS: ATTENDING PHYSICIAN Physical Medicine & Rehabilitation; FAMILY PHYSICIAN Family Medicine | DX: G61.81 Chronic inflammatory demyelinating polyneuritis (principal); R26.89 Other abnormalities of gait and mobility; M62.81 Muscle weakness (generalized); Z73.6 Limitation of activities due to disability; R29.6 Repeated falls | CPT/HCPCS: 97110; 97530; 97535 ==

== ENCOUNTER 2024-11-21 20:51 | Inpatient (IN) | payer MEDICARE, OTHER, SELFPAY ==
[2024-11-21] VITALS (9 sets, daily range): BP systolic 91–150; BP diastolic 57–86; BMI 29.2
--- NOTE | 2024-11-21 16:25 | ED.GENMED ---
History of Present Illness
General
Chief Complaint: Abdominal Symptoms
Source: patient and spouse
Exam Limitations: none
Time Seen by Provider: 11/21/24 16:06
Nursing documentation reviewed up to this point in time: agreed with
History of Present Illness
History of Present Illness:
Patient to ED with complaint of sudden onset SOB, chills, n/v. States he felt well this AM, went to infusion center to have port flushed and then returned home. Symptoms started after returning home. He was brought to ED via EMS. Reports he had a
similar episode in september, found to be septic. PMH chronic inflammatory demyelinating polyradicularneuropathy. He no longer receives infusions for this, continues to have port flushed monthly.
Past History
Past History
ED Past Medical History: Asthma, NIDDM, Psychiatric and Other (chronic demyelinating polyradicularneuropathy)
ED Past Surgical History: Appendectomy, Cardiac (pacemaker) and Cholecystectomy
Social History
Tobacco: Former smoker
Alcohol: None
Drug: None
Personal:
Living: with family
Employment: Retired
Family History
Family History: Other
Review of Systems
Review of Systems
Allergies reviewed?: Yes
All Other Systems: ROS reviewed and negative except as documented in HPI and ROS
Constitutional: Reports fatigue and chills
EENT: Reports no symptoms
Respiratory: Reports cough and trouble breathing
Cardiac: Reports no symptoms
ABD/GI: Reports nausea and vomiting
: Reports no symptoms
Musculoskeletal: Reports no symptoms
Skin: Reports no symptoms
Neurological: Reports weakness
Psychiatric: Reports no symptoms
Phy Exam
General Physical Exam
General Presentation: moderate distress
General age: appears stated age
General Skin: warm and dry
General Habitus: normal
General Mental: alert
Cardiovascular Exam
Cardiovascular Exam: regular rate/rhythm
Pulmonary Exam
Pulmonary Exam: decreased breath sounds
Oxygen Status: oxygen 2 liters via NC
Cough: coarse cough
Breath Sounds: Crackles: left lower and right lower
Gastrointestinal Exam
Gastrointestinal Exam: normal bowel sounds, non tender, soft, no organomegaly, non distended and no cva tenderness
Musculoskeletal Exam
Musculoskeletal Exam: full ROM
Skin Exam
Skin Exam: normal color, warm/dry and no rash
Psychiatric Exam
Psychiatric Exam: normal mood/affect
Sepsis
Sepsis Screening
Sepsis Assessment: Sepsis
Sepsis Screen
Sepsis Screen: Sepsis
Date: 11/21/24
Time: 23:53
Course
Orders/Labs/Results
Orders:
Orders
11/21/24 Dinner
Regular
At Your Request: Limited, Bomb Loader Required
11/21/24 16:08
Complete Blood Count/With Diff Urgent
Comprehensive Metabolic Panel Urgent
Lipase Urgent
11/21/24 16:18
Electrocardiogram (*1) Urgent
Reason for Study: Shortness of Breath
EKG- Treatment ONCE
CR Chest - 2 Views Urgent
Comment:
Reason For Exam: SOB
11/21/24 16:22
Lactic Acid Urgent
NT-proBNP Urgent
Urinalysis Reflex To Culture Urgent
Date Specimen was Collected: 11/21/24
Time Specimen was Collected: 16:20
Urine Microscopic Reflex Cult Urgent
11/21/24 16:23
Ondansetron Injectable [Zofran] 4 mg IV NOW STA
11/21/24 16:29
Blood Culture Urgent
RICHARD Source: Blood/Venous
Specimen Description:
11/21/24 16:38
Acetaminophen [Tylenol] 1,000 mg PO NOW STA
11/21/24 16:41
Blood Culture Urgent
RICHARD Source: Blood/Venous
Specimen Description:
11/21/24 16:50
COVID-19 Antigen Urgent
Source: Nasal Swab
Influenza A+B Rapid Molecular Urgent
RICHARD Source: Nasal Swab
Specimen Description:
11/21/24 16:55
0.9% Sodium Chloride 1000 ml [Nss] 1,000 ml IV BOLUS
11/21/24 17:46
Prochlorperazine [Compazine] 10 mg IV NOW STA
11/21/24 19:11
Ketorolac [Toradol] 15 mg IV NOW STA
11/21/24 19:26
Vancomycin [Vancocin] 2,000 mg 0.9% Sodium Chloride 500 ml [Nss] 500 ml IV NOW
11/21/24 19:45
0.9% Sodium Chloride 1000 ml [Nss] 1,000 ml IV 125 mls/hr
11/21/24 20:04
Admit/Transfer Patient As Directed
Co-Sign Provider:
Level of Care: Inpatient admission
Assign to:: Telemetry
Physician / Group: Edy
Diagnosis: Fever of unknown source
Reason for Telemetry: Other
Other Reason for Telemetry: sepsis
Date to Stop Telemetry: 11/23/24
Time to Stop Telemetry: 11:00
Reason for Hospitalization: fever, sirs
Expected length of stay greater than two midnights?: Yes
ELOS- Estimated Length of Stay in days: 2
I certify the patient meets the requirements for IP care: Yes
PRN Pain Medication Management As Directed
May give lesser potent ordered pain med per pt: Yes
preference::
Protocol:: Medication orders for pain may be administered in a
manner that supports deferring to patient preference
when the pt is:
- Requesting an ordered lesser potent pain medication.
Least to most potent pain medications are defined
as: acetaminophen < NSAID < tramadol < opioids
(morphine, oxycodone, hydromorphone).
- Requesting a lesser dose of the same medication IF
ORDERED.
- Requesting a less intrusive route of administration
if both routes are prescribed by the provider (PO <
IV).
11/21/24 20:09
Code Status As Directed
Resuscitation Status: Do not resuscitate
Reached after discussion with pt or family/Healthcare POA: Yes
DNR Bracelet Application ONCE
11/21/24 20:16
Cefepime HCl [Maxipime] 2,000 mg IV NOW STA
11/21/24 20:18
Sterile Water [Sterile Water For Injection] 10 ml IV NOW STA
11/21/24 21:26
Acetaminophen [Tylenol/Feverall] 650 mg RECTAL Q4HPRN PRN
Acetaminophen [Tylenol] 650 mg PO Q4HPRN PRN
Lactated Ringers [Lr] 1,000 ml IV 125 mls/hr
Ondansetron Injectable [Zofran] 4 mg IV Q6HPRN PRN
VANCOMYCIN Pharmacy to Dose [VANCOCIN Pharmacy to Dose] 1 each Pharmacy To Prepare [Call Pharmacy To Prepare] 0 ml IV PER PROTOCOL
11/21/24 21:26
Activity As Directed
Activity Level: With Assistance
Intake/ Output As Directed
Frequency: Per unit guidelines
Vital Signs As Directed
Frequency: Per unit guidelines
O2 Therapy [RESP] Routine
Nasal Cannula Liter Flow: 2 LPM
Titrate/Wean O2 to maintain O2 sat greater than (%): 93
Pulse Ox/cont/shift [RESP] Routine
Quantity: 1
Special Instructions: continuous pulse ox
DX Deep Vein Thrombosis Video Routine
11/21/24 22:00
Clonazepam [Klonopin] 0.5 mg PO HS
Olanzapine [Zyprexa] 5 mg PO HS
Venlafaxine Extended Release [Effexor Xr] 75 mg PO HS
11/22/24 04:00
Cefepime HCl [Maxipime] 1,000 mg IV Q6H
11/22/24 06:00
Complete Blood Count/No Diff IN AM
Levothyroxine [Synthroid] 75 mcg PO DAILY @ 0600
11/22/24 08:00
Aspirin Chewable [Low Strength Aspirin] 81 mg PO DAILY
Bupropion(12Hr)Sustain Release [WELLBUTRIN SR (12 hour sustained release)] 100 mg PO DAILY
Fludrocortisone Acetate [Florinef] 0.1 mg PO DAILY
Galantamine [Razadyne] 8 mg PO BID
Lamotrigine [Lamictal] 200 mg PO BID
Linaclotide [Linzess] 72 mcg PO DAILY
Mirabegron Extended Release [Myrbetriq Extended Release] 50 mg PO DAILY
Polyethylene Glycol Powder [Miralax] 17 grams PO DAILY
Psyllium [Metamucil, Konsyl] 1 packet PO DAILY
Rosuvastatin Calcium [Crestor] 10 mg PO DAILY
Tamsulosin [Flomax] 0.4 mg PO DAILY
Venlafaxine Extended Release [Effexor Xr] 150 mg PO DAILY
11/22/24 18:00
Enoxaparin Sodium [Lovenox] 40 mg SC QPM
11/23/24 11:00
DC Protocol for Telemetry ONCE
11/25/24 21:26
Clonazepam [Klonopin] 0.5 mg PO DAILYPRN PRN
Abnormal Lab Results
11/21/24 11/21/24
16:08 16:22
WBC 2.3 L* 10^3/uL
(4.8-10.8)
RBC 3.64 L 10^6/uL
(4.70-6.10)
Hgb 12.7 L g/dL
(13.0-18.0)
Hct 36.4 L %
(39.0-52.0)
MCV 100.0 H fL
(80.0-94.0)
MCH 34.9 H pg
(27.0-31.0)
MPV 10.5 H fL
(7.4-10.4)
Abs Immat Gran (auto) 0.4 H 10^3/uL
(0-0.05)
Absolute Lymphs (auto) 0.2 L 10^3/uL
(1.2-3.4)
Immature Gran % 16.6 H %
(0-0.5)
Lymphocytes % 9.2 L %
(20.5-51.1)
BUN 21 H mg/dl
(9-20)
Glucose 148 H mg/dl
(70-99)
Ur Occult Blood Reflex 1+ A
(Negative)
Urine RBC 11-15 A /HPF
(0-2)
Urine Bacteria (Reflex) Few A
(Negative)
Urine Albumin (Reflex) 1+ A
(Neg - Trace)
11/21/24 16:08
11/21/24 16:08
Vital Signs
Initial and Last Documented VS:
Initial Vital Signs
Temp Pulse Resp BP Pulse Ox
99.4 F 121 19 150/86 85
11/21/24 15:24 11/21/24 15:24 11/21/24 15:24 11/21/24 15:24 11/21/24 15:24
Last Documented Vital Signs
Temp Pulse Resp BP Pulse Ox
101.6 F H 84 21 105/57 96
11/21/24 23:06 11/21/24 23:30 11/21/24 23:30 11/21/24 23:05 11/21/24 23:30
*Radiology
Radiology exam reviewed: radiology read reviewed
*Pulse Oximetry
Patient hypoxic: no
*Critical Care Note
Total Time (30-74mins, 75-104mins- exclusive of procedures): Not Applicable
Update Note
Update Note:
Patient to ED with complaitn of fever, ;chills, vomiting. SYmptoms started this afternoon. Temp in ED103.8. Given IVF, tylenol. Temp slowly declining. WBC 2.4, Lactic 1.8.No further chills or vomiting. No source of fever identified. He will be
admitted to hospitalist service, blood culture results pending.
ED Attending Note
-
Portions of this chart may have been created with voice recognition software.� Occasional wrong word or��sound alike� substitutions may have occurred due to the inherent limitations of voice recognition software.
Discharge Plan
Departure
Patient Disposition: Admit
Date of Disposition: 11/21/24
Time of Disposition: 19:30
Presentation/result/management discussed w/ accepting MD/DO: Hospitalist
Patient with high blood pressure during this ER visit?: No
Condition: Fair
Discharge Problem:
Fever of unknown origin
Interventions
Interventions:
*Risk Screen - Suicide Last Done: 11/21/24 15:29
*General Assessment Last Done: 11/21/24 15:29
*Neglect/Abuse Screening Last Done: 11/21/24 15:29
*ED- Fall Risk Assessment Last Done: 11/21/24 15:29
*ED COVID-19 Vaccine History Last Done: 11/21/24 15:29
ZP-Adhwtt-Crpnxplrjw Assessment Last Done: 11/21/24 17:09
[2024-11-21 16:34] LABS: Urine Albumin 1+ (Neg - Trace); Urine Bilirubin Negative (Negative); Urine Character Clear (Clear); Urine Color Yellow; Urine Glucose Negative (Negative); Urine Ketone Negative (Negative); Urine Leukocyte Negative (Negative); Urine Nitrite Negative (Negative); Urine Occult Blood 1+ (Negative); Urine Urobilinogen Negative (Neg - 1+)
[2024-11-21 16:36] LABS: Hematocrit 36.4 % (39.0-52.0); Hemoglobin 12.7 g/dL (13.0-18.0); Mean Corp Hgb Conc. 34.9 g/dL (33.0-37.0); Mean Corpuscular Hgb 34.9 pg (27.0-31.0); Mean Platelet Volume 10.5 fL (7.4-10.4); Platelet Count 141 10^3/uL (130-400); Red Blood Cell Count 3.64 10^6/uL (4.70-6.10); Red Cell Dist. Width 13.3 % (11.5-14.5); White Blood Cell Count 2.3 10^3/uL (4.8-10.8)
[2024-11-21] MEDS: TYLENOL 1000 MG PO (16:44)
[2024-11-21] MEDS: ZOFRAN 4 MG IV (16:45)
[2024-11-21 16:47] LABS: Lactic Acid 1.8 mmol/L (0.7-2.0)
[2024-11-21 16:50] LABS: Urine Bacteria Few (Negative); Urine White Cell 0-2 /HPF (0-5)
[2024-11-21 16:50] LABS: ALT (SGPT) 22 U/L (0-50); AST (SGOT) 32 U/L (17-59); Albumin 4.6 g/dl (3.5-5.0); Alkaline Phosphatase 102 U/L (38-126); Blood Urea Nitrogen 21 mg/dl (9-20); Calcium 9.7 mg/dl (8.4-10.2); Carbon Dioxide 26 mmol/L (22-30); Chloride 105 mmol/L (98-107); Estimated Creatinine Clearance 64 ml/min; Glucose 148 mg/dl (70-99); Lipase 63 U/L (23-300); Potassium 3.8 mmol/L (3.5-5.1); Sodium 140 mmol/L (135-145); Total Bilirubin 1.3 mg/dl (0.2-1.3); Total Protein 7.6 g/dl (6.3-8.2); eGFR > 60.00
[2024-11-21 16:56] LABS: NT-proBNP 353 pg/ml
[2024-11-21] MEDS: NSS 1000 IV ×2 (17:02→19:45)
[2024-11-21 17:34] LABS: COVID-19 Antigen Negative (Negative)
[2024-11-21 17:48] LABS: % Eosinophils 0.9 % (0-6); % Immature Granulocytes 16.6 % (0-0.5); % Lymphocytes 9.2 % (20.5-51.1); % Monocytes 2.2 % (1.7-9.3); % Neutrophils 71.1 % (42.2-75.2); Absolute Immature Granulocytes 0.4 10^3/uL (0-0.05); Absolute Lymphocytes 0.2 10^3/uL (1.2-3.4); Absolute Monocytes 0.1 10^3/uL (0.1-0.6); Absolute Neutrophils 1.6 10^3/uL (1.4-6.5); Nucleated Red Blood Cells % 0 % (-)
[2024-11-21] MEDS: COMPAZINE 10 MG IV (17:58)
[2024-11-21] MEDS: TORADOL 15 MG IV (19:14)
--- NOTE | 2024-11-21 19:36 | HPS.HSE ---
Family Physician
-
Family Physician: Peyman Moore
Chief Complaint
-
Fevers and chills
History of Present Illness
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
emergency department with acute onset of chills rigors and a fever of 104 at home.
Patient was recently admitted to the hospital with similar symptoms and a tight time was thought to have pneumonia as well as bacteremia with Klebsiella oxytoca status post a fairly prolonged stay and rehab stay. On discharge he was not requiring
any oxygen and has been doing well up until today.
Patient reported that in the a.m. he had a port flushed. After arriving home he started having shaking chills and rigors and when he measured his temperature it was 104 degrees. He denies having any cough. He is on oxygen here but denies feeling
more short of breath. He denies having any chest pain. He denies abdominal pain nausea or vomiting. He denies diarrhea. He denies having any headache. Patient denies dysuria. He denies any flank pain. He denies any rash. He has no known sick
contacts.
In the ED his temperature was 103.3, he was satting 95% on 2 L. Blood pressure was 117/62 with a pulse of 94. ECG shows sinus tachycardia at a rate of 103 with right bundle. The chest x-ray was equivocal with no definite signs of pneumonia.
White count was 2.3 with absolute neutrophil counts greater than 1600. Hemoglobin and platelets were stable. Electrolytes BUN and creatinine were normal. COVID test was negative. Influenza test was negative. UA shows no significant UTI.
Medical History
Past Medical History
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
Past Surgical History: Reports None
Social History
Tobacco: Non-smoker
Alcohol: None
Drug: None
Family History
Family History: Not pertinent
Allergies / Home Medications
Allergies reflects when Allergies were last updated in [employer].
Home Medications with original date entered in [employer]
Allergy/Medication List:
Allergies
Allergy/AdvReac Type Severity Reaction Status Date / Time
No Known Allergies Allergy Verified 09/16/24 13:07
Home Medications
bupropion HCl 100 mg tablet,12 hr sustained-release 100 mg PO DAILY Mental Health/Anxiety 05/18/21
fludrocortisone 0.1 mg tablet 0.1 mg PO DAILY Hormonal agent 05/18/21
galantamine 8 mg tablet 8 mg PO BID DEMENTIA 05/18/21
olanzapine 5 mg tablet 5 mg PO HS Mental Health/Anxiety 05/18/21
omega-3 fatty acids-fish oil 300 mg-1,000 mg capsule 1 ea PO DAILY High cholesterol 05/18/21
rosuvastatin 10 mg tablet 10 mg PO DAILY High cholesterol 05/18/21
venlafaxine 150 mg capsule,extended release 24 hr (Effexor XR) 150 mg PO DAILY Mental Health/Anxiety 05/18/21
clonazepam 0.5 mg tablet 0.5 mg PO HS Mental Health/Anxiety 08/16/21
aspirin 81 mg chewable tablet 81 mg PO DAILY 08/18/21
polyethylene glycol 3350 17 gram oral powder packet 17 grams PO DAILY ##30 08/18/21
tamsulosin 0.4 mg capsule 0.4 mg PO DAILY #30 caps 08/18/21
bisacodyl 5 mg tablet,delayed release (Dulcolax (bisacodyl)) 5 mg PO DAILY 09/16/24
clonazepam 0.5 mg tablet 0.5 mg PO DAILYPRN PRN anxiety 09/16/24
efgartigimod oleg 1008 an-orotecbh-byfz 11,200 unit/5.6 mL subcut soln (Vyvgart Hytrulo) 5.6 ml SC TH 09/16/24
ibuprofen 200 mg tablet (Advil) 400 mg PO Q6HPRN PRN mild pain 09/16/24
lamotrigine 200 mg tablet 200 mg PO BID 09/16/24
mirabegron 50 mg tablet,extended release 24 hr (Myrbetriq) 50 mg PO DAILY 09/16/24
potassium chloride 20 mEq tablet,extended release 20 meq PO Q48H 09/16/24
psyllium husk 3.4 gram/5.4 gram oral powder (Metamucil) 1 tbsp PO DAILY 09/16/24
therapeutic multivitamin 1 tab PO DAILY 09/16/24
venlafaxine 75 mg capsule,extended release 24 hr 75 mg PO HS 09/16/24
Review of Systems
-
History Source: Patient and Family
Constitutional: Reports Fever and Chills
EENT: Reports No Symptoms
Respiratory: Reports No Symptoms
Cardiac: Reports No Symptoms
Abdomen/GI: Reports No Symptoms
: Reports No Symptoms
Musculoskeletal: Reports No Symptoms
Skin: Reports No Symptoms
Neurological: Reports No Symptoms
Endocrine: Reports No Symptoms
Hematologic/Lymphatic: Reports No Symptoms
Psych: Reports No Symptoms
Physical Exam
Vital Signs
Vital Signs
Temp Pulse Resp BP Pulse Ox
103.3 F H 94 26 117/62 95
11/21/24 19:09 11/21/24 19:15 11/21/24 19:15 11/21/24 19:00 11/21/24 19:15
Physical Exam
General: Well Developed and Well Nourished
HEENT: NormoCephalic, Anicteric, Moist mucous membranes, Atraumatic and PERRLA
Respiratory: Clear
Cardiac: S1/S2 and Tachycardia
Breast: Deferred by me
GI: Soft, Non Tender, Normal Bowel Sounds and Distended
Rectal: Deferred by Provider
Genito-urinary: No costovertebral tender
Musculoskeletal: No Clubbing, No Cyanosis and No Edema
Skin: Warm and Dry
Neuro: AO x 3 and Nonfocal/grossly intact
Hematologic/Lymphatic: No Lymphadenopathy
Psych: Calm
Laboratory Results
-
11/21/24 16:08
11/21/24 16:08
Laboratory Results
Lactic Acid 1.8 mmol/L (0.7-2.0) 11/21/24 16:22
Total Bilirubin 1.3 mg/dl (0.2-1.3) 11/21/24 16:08
AST 32 U/L (17-59) 11/21/24 16:08
ALT 22 U/L (0-50) 11/21/24 16:08
Alkaline Phosphatase 102 U/L (38-126) 11/21/24 16:08
Lipase 63 U/L (23-300) 11/21/24 16:08
Data Reviewed
-
Diagnostic Radiology: Image Personally Visualized and interpreted and Report Reviewed by me
Medical Tests (Nuc Med, Echo, EKG etc): Image Personally Visualized and interpreted
Lab Data: Labs Reviewed by me
Old Records: Reviewed
Impression/Plan
-
IMPRESSION:
This is an 79-year-old with past medical history significant for CIDP, hypothyroid, bipolar, BPH, recent Klebsiella pneumonia with bacteremia presenting to the emergency department with acute onset of fevers and chills without any localizing
symptoms. Arrives in the emergency department febrile, tachycardic, normotensive. Leukopenia without neutropenia. Lactate is negative. X-rays are unrevealing. UA is not positive. Given recent history of port accessed this morning prior to
onset possible bloodstream infection with/bacteremia versus early presentation of severe pneumonia. No abdominal symptoms, signs or labs to suggest intraabdominal process.
PLAN:
1. Fever - Sirs w/o sepsis. Leukopenic but not neutropenic. Not immunosuppressed. No influenza or covid.
- admit to telemetry
- blood cultures sent
- source unclear will cover broadly with cefepime/vancomycin
- check CT chest and a/p
- given sepsis bolus given, continue IV fluids with LR
- ID consultation
2. Leukopenia - Isolated leukopenia without neutropenia. Suspect secondary to underlying infection.
- ID w/u and tx as above
- not neutropenic yet, monitor for precautions
Other Issue
- continue appropriate medications for dementia, bipolar/anxiety and IBS
- continue fluodrocortisone at current dose
- continue tamsulosin
DVT PPX - lovenox sq
Code status - DNR
[2024-11-21] MEDS: VANCOCIN 540 MG IV (19:46)
[2024-11-21] MEDS: MAXIPIME 2000 MG IV (21:03)
[2024-11-21] MEDS: STERILE WATER FOR INJECTION 10 ML IV (21:03)
[2024-11-21] MEDS: LR 1000 IV (21:56)
[2024-11-21] MEDS: ZYPREXA 5 MG PO (22:56)
[2024-11-21] MEDS: KLONOPIN 0.5 MG PO (22:56)
[2024-11-21] MEDS: EFFEXOR XR 75 MG PO (22:56)
--- NOTE | 2024-11-21 22:59 | PHA.VAN.IN ---
Assessment
- Assessment
Renal Function: Appears elevated from baseline (09/23/24 BASELINE SCR: 0.7)
Concomitant Antimicrobials: CEFEPIME
Plan
- Plan
Initial / Loading Dose: 2GM
Maintenance Regimen: DOSING BY RANDOM LEVEL
Monitoring: RANDOM VANCOMYCIN LEVEL 11/22/24 AM
Pharmacokinetics Vancomycin I
- -
Patient Age: 79
Patient Sex: Male
Vancomycin Day #: 1
Indication: Pulmonary/Respiratory (SIRS)
Requesting Provider: NILO
Height / Weight:
Height 6 ft
Actual Weight 97.7 kg
Pertinent Past Medical History: RECENT ADMIT [09/17/24] FOR SAME; CIDP
- Vital Signs / Lab Results
Temp Pulse Resp BP Pulse Ox
103.3 F H 86 18 101/59 95
11/21/24 19:09 11/21/24 22:30 11/21/24 22:30 11/21/24 22:00 11/21/24 22:30
Lab Results - Hematology
11/21/24
16:08
WBC 2.3 L*
Lab Results - Chemistry
11/21/24
16:08
BUN 21 H
Creatinine 1.0
Estimated Creat Clear 64
Albumin 4.6
11/21/24
16:22
Lactic Acid 1.8
Lab Results - Urine
11/21/24
16:22
Urine Nitrite (Reflex) Negative
Leukocyte Esterase Rfl Negative
Urine WBC (Reflex) 0-2
Ur Squamous Epith Cells 6-10
Urine Bacteria (Reflex) Few A
Microbiology Results
11/21/24 16:50 Influenza Types A & B (MAGGIE) - Final
Nasal Swab Negative for Influenza A & B, NAAT
Negative results must be combined with clinical observations
and patient history.
Nucleic Acid Amplification test (NAAT)performed on the
[employer] platform.
[2024-11-22] VITALS (17 sets, daily range): BP systolic 87–153; BP diastolic 48–113
[2024-11-22 03:15] LABS: Hematocrit 30.5 % (39.0-52.0); Hemoglobin 10.4 g/dL (13.0-18.0); Mean Corp Hgb Conc. 34.1 g/dL (33.0-37.0); Mean Corpuscular Hgb 34.8 pg (27.0-31.0); Mean Platelet Volume 10.4 fL (7.4-10.4); Platelet Count 111 10^3/uL (130-400); Red Blood Cell Count 2.99 10^6/uL (4.70-6.10); Red Cell Dist. Width 13.8 % (11.5-14.5); White Blood Cell Count 17.3 10^3/uL (4.8-10.8)
[2024-11-22 03:26] LABS: Blood Urea Nitrogen 29 mg/dl (9-20); Calcium 8.6 mg/dl (8.4-10.2); Carbon Dioxide 25 mmol/L (22-30); Chloride 106 mmol/L (98-107); Estimated Creatinine Clearance 42 ml/min; Glucose 144 mg/dl (70-99); Magnesium 1.8 mg/dl (1.6-2.3); Potassium 4.7 mmol/L (3.5-5.1); Sodium 139 mmol/L (135-145); eGFR 46.48
[2024-11-22] MEDS: MAXIPIME 1000 MG IV ×4 (04:13→22:40)
[2024-11-22] MEDS: STERILE WATER FOR INJECTION 10 ML IV ×4 (04:13→22:40)
[2024-11-22] MEDS: LR 1000 IV ×2 (05:04→13:20)
[2024-11-22] MEDS: SYNTHROID 75 MCG PO (06:15)
[2024-11-22 06:29] LABS: Vancomycin Random 17.4 ug/ml
--- NOTE | 2024-11-22 08:36 | W.PN.HOSP.TC ---
Documented by User: Doreen Louis MD, Resident 11/22/24 13:35
Today's Communication/Plan
-
Discontinue vancomycin. Continue cefepime.
Plan to remove the port today.
Appreciate ID inputs.
Obtain thrombolysis workup, liver function tests, FeNa, repeat BMP in the p.m. today.
Assessment / Plan
Assessment / Plan
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
Plan-
SIRS-
no sepsis, lactate levels negative.
Leukopenic upon admission, leukocytosis today.
Differential count pending.
CT abdomen and pelvis-no acute abnormalities noted, source of sepsis still pending.
Blood cultures x 6-cheove-nvizveqt for gram-negative bacilli, Klebsiella oxytoca
Similar episode of sepsis in September, suspect secondary to port, ID recommended removal of port. Appreciate ID inputs.
Patient currently on cefepime, day 1(S/p 3 doses).
Discontinue vancomycin.
Abdominal distention-
Nausea, emesis with right upper quadrant pain.
S/p cholecystectomy in the past.
Obtain obstruction series of abdomen.
CT abdomen and pelvis unrevealing.
Patient denies diarrhea currently.
Leukopenia/leukocytosis-
Likely secondary to sepsis.
No differentials today, trend leukocyte count-differential count pending.
ANDREW-
Serum creatinine baseline 0.8
Upon admission serum creatinine-at 1.0, trending up today at 1.5
Continue IV lactated Ringers.
Repeat BMP in the p.m. today to trend renal function.
Likely secondary to sepsis versus intrinsic renal injury.
Obtain fractional excretion of sodium levels.
Monitor I & O.
CIDP-
On Vyvgart infusions.
Vyvgart held for now. Vyvgart causes hypogammaglobulinemia.
Monitor for symptoms of weakness, paresthesias, respiratory depression.
Hypertension-
Currently not on hypertensive meds
Likely because of orthostatic hypotension?
On fludrocortisone for hypotension.
Continue fludrocortisone.
Benign prostatic hyperplasia-
Currently on tamsulosin and mirabegron.
Continue home medications.
Monitor for urinary retention.
Bipolar disorder-
Continue home meds-lamotrigine, olanzapine, Wellbutrin, and clonazepam.
IBS-
On Linzess and bisacodyl.
Also takes Metamucil.
Continue home medication regimen.
Thrombocytopenia and dark brown urine--
Platelets count trending down-
141K to 111K
Reactive to sepsis, versus thrombolysis.
Liver function test, obtain LDH, haptoglobin, CPK levels.
Monitor platelet counts
DVT prophylaxis-
Anticipated Discharge: > 48 hours
Subjective/Interval History
-
Date of Service: November 22, 2024
Patient is complaining of dizziness, abdominal distention and tightness, he also states that he had about 7 episodes of vomiting Thursday with right upper quadrant pain beginning Thursday afternoon, and vomitings resolved in the p.m. yesterday. He
still feels nauseous. He feels weak, fatigued and reported dark brown urine-extremely low quantity in the a.m. today.
Objective Data
-
Labs:
Laboratory Results
11/22/24
02:58
WBC 17.3 H
Hgb 10.4 L
Hct 30.5 L
Plt Count 111 L D
Sodium 139
Potassium 4.7
Chloride 106
Carbon Dioxide 25
BUN 29 H
Creatinine 1.5 H
Glucose 144 H
Calcium 8.6
Vital Signs:
Vital Signs
Temp Pulse Resp BP Pulse Ox
98.8 F 88 18 122/57 97
11/22/24 07:49 11/22/24 07:49 11/22/24 07:49 11/22/24 06:00 11/22/24 07:49
Review of Systems
-
History Source: Patient
Constitutional: Reports Fatigue, Chills and Weakness
EENT: Reports No Symptoms Reported
Respiratory: Reports Trouble Breathing; Denies Cough, Hemoptysis or Wheezing
Cardiac: Reports Palpitations; Denies Chest Pain, Diaphoresis, Syncope, PND or Orthopnea
Abdomen/GI: Reports Abdominal Pain (Right upper quadrant, 2/10 in intensity), Nausea, GERD and Other (Abdominal distention, isolated to upper abdomen.); Denies Vomiting
Genitourinary: Reports No Symptoms
Musculoskeletal: Reports No Symptoms
Neuro: Reports Dizzy and Weakness
Hematologic / Lymphatic: Reports No Symptoms
Allergy / Immunology: Reports No Symptoms
Physical Exam
-
General: Comfortable and Respiratory Distress (Mild, on 4 L low flow nasal cannula.)
HEENT: Moist Mucous Membranes
Respiratory: Clear to Auscultation (In all lobes bilaterally); Negative Wheezes, Rales, Rhonchi or Crackles
Cardiac: Regular Rhythm (Tachycardic), S1/S2 and Other (Chest exam-right anterior chest wall-port in place, no erythema, edema or discharge. No local rise of temperature. Left anterior chest wall-pacemaker, no erythema edema or discharge at the
site of pacemaker, no local rise of temperature.); Negative Murmur, Rub or Gallop
GI: Soft, Nontender, Normal Bowel Sounds (Decreased bowel sounds.) and Distended (Upper abdomen-distended and taut to palpation,)
Genito-urinary: No Costovertebral Tender
Musculoskeletal: No Clubbing, No Cyanosis and No Edema
Neuro: AO x 3, No Motor Deficits and No Sensory Deficits
Hematologic / Lymphatic: No Lymphadenopathy
Psych: Calm
Data Reviewed
-
CT Scan: Image personally visualized and interpreted, Report Reviewed by me and Discussed with Physician
Ultrasound: Image personally visualized and interpreted, Report Reviewed by me and Discussed with Physician
Medical Tests (Nuc Med, Echo etc): Image personally visualized and interpreted, Report Reviewed by me and Discussed with Physician
Labs: Labs Reviewed by me, Discussed with Physician and Discussed with Nurse

Documented by User: Aleks Castillo DO 11/22/24 15:06
Assessment / Plan
Assessment / Plan
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
Plan-
Gram-negative bacteremia with sepsis secondary to infected Port-
Leukopenic upon admission, leukocytosis today.
Differential count pending.
CT abdomen and pelvis-no acute abnormalities noted, source of sepsis still pending.
Blood cultures x 1-xeegdg-iotjyria for gram-negative bacilli, Klebsiella oxytoca
Similar episode of sepsis in September, suspect secondary to port, ID recommended removal of port. Appreciate ID inputs.
Patient currently on cefepime, day 1(S/p 3 doses).
Discontinue vancomycin.
Abdominal distention-
Nausea, emesis with right upper quadrant pain.
S/p cholecystectomy in the past.
Obtain obstruction series of abdomen.
CT abdomen and pelvis unrevealing.
Patient denies diarrhea currently.
Leukopenia/leukocytosis-
Likely secondary to sepsis.
No differentials today, trend leukocyte count-differential count pending.
ANDREW-
Serum creatinine baseline 0.8
Upon admission serum creatinine-at 1.0, trending up today at 1.5
Continue IV lactated Ringers.
Repeat BMP in the p.m. today to trend renal function.
Likely secondary to sepsis versus intrinsic renal injury.
Obtain fractional excretion of sodium levels.
Monitor I & O.
CIDP-
On Vyvgart infusions.
Vyvgart held for now. Vyvgart causes hypogammaglobulinemia.
Monitor for symptoms of weakness, paresthesias, respiratory depression.
Hypertension-
Currently not on hypertensive meds
Likely because of orthostatic hypotension?
On fludrocortisone for hypotension.
Continue fludrocortisone.
Benign prostatic hyperplasia-
Currently on tamsulosin and mirabegron.
Continue home medications.
Monitor for urinary retention.
Bipolar disorder-
Continue home meds-lamotrigine, olanzapine, Wellbutrin, and clonazepam.
IBS-
On Linzess and bisacodyl.
Also takes Metamucil.
Continue home medication regimen.
Thrombocytopenia and dark brown urine--
Platelets count trending down-
141K to 111K
Reactive to sepsis, versus thrombolysis.
Liver function test, obtain LDH, haptoglobin, CPK levels.
Monitor platelet counts
DVT prophylaxis-
[2024-11-22] MEDS: LOW STRENGTH ASPIRIN 81 MG PO (08:52)
[2024-11-22] MEDS: CRESTOR 10 MG PO (08:52)
[2024-11-22] MEDS: FLOMAX 0.4 MG PO (08:53)
[2024-11-22] MEDS: LAMICTAL 200 MG PO ×2 (08:53→20:51)
[2024-11-22] MEDS: LINZESS 72 MCG PO (08:53)
[2024-11-22] MEDS: METAMUCIL, KONSYL 1 PACKET PO (08:54)
[2024-11-22] MEDS: FLORINEF 0.1 MG PO ×2 (08:56→08:58)
[2024-11-22] MEDS: EFFEXOR XR 150 MG PO (08:56)
[2024-11-22] MEDS: WELLBUTRIN SR (12 hour sustained release) 100 MG PO (08:56)
[2024-11-22] MEDS: MYRBETRIQ EXTENDED RELEASE 50 MG PO (08:56)
[2024-11-22] MEDS: RAZADYNE 8 MG PO ×2 (08:58→20:51)
[2024-11-22 09:37] LABS: % Basophils 0.2 % (0-2); % Immature Granulocytes 2.3 % (0-0.5); % Lymphocytes 2.1 % (20.5-51.1); % Monocytes 4.2 % (1.7-9.3); % Neutrophils 91.2 % (42.2-75.2); Absolute Immature Granulocytes 0.4 10^3/uL (0-0.05); Absolute Lymphocytes 0.4 10^3/uL (1.2-3.4); Absolute Monocytes 0.7 10^3/uL (0.1-0.6); Absolute Neutrophils 15.4 10^3/uL (1.4-6.5); Nucleated Red Blood Cells % 0 % (-)
--- NOTE | 2024-11-22 09:43 | CON.ID ---
Consultation
-
Date/Time Consultation Requested: 11/22/24 4:31
Date/Time Consultation Performed: 11/22/24 9:43
Requesting Provider: Jhon SHAH
Performing Provider: Dr Justice
Reason for Consultation: fever of unknown origin
Chief Complaint / Past History
Chief Complaint
Fevers and chills
History of Present Illness
Mr Monahan is an 79 year old male with history of CIDP on Vyvgart weekly - previously on IVIG, orthostatic hypotension who presented here 11/21 for fever to 104, chills and rigors. The morning of 11/21 his port was flushed and then he developed the
fevers and chills. He denies cough, shortness of breath, chest pain, nausea, vomiting, abdominal pain, diarrhea, dysuria, rashes, sick contacts. Get his vyvgart via SQ injection.
Note recent admission 09/17 for pneumonia due to K oxytoca, did have bacteremia due to K oxytoca and underwent salvage course of 14 day course of ceftriaxone via the port. Also has a pacemaker
Since arrival here Tmax 104.1 rectally, bp overall stable, initially tachycardic to the 150s now with a normal rate in the 80s, wbc on arrival 2.3 now 17.3, hgb 10.4, plt 111, L shift noted today, cr baseline 0.8, on arrival 1.0 and today 1.5, Na
139, lactic acid 1.8, lfts wnl, when last checked 11/09 IgG was 696 mildly low, covid ag negative, CT c/a/p no acute abnormalities - constipation noted, 09/19 echo without evidence of valvular vegetations. Patient is currently on cefepime. ID is
consulted for assistance with management.
Past History
Additional Past Medical History:
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
Additional Past Surgical History:
Pacemaker
Port
Allergy History:
prednisone Allergy (Unknown, Verified 11/21/24 10:57)
Unknown
Medications Reviewed: Yes
Social History
Tobacco: Non-Smoker
Alcohol: None
Drug: None
Family History
Family History: Not Pertinent
Review of Systems
Review of Systems
General: Fever and Chills
All systems: All other systems were reviewed and were negative
Vital Signs
Temp Pulse Resp BP Pulse Ox
98.8 F 92 29 116/61 97
11/22/24 07:49 11/22/24 09:00 11/22/24 09:00 11/22/24 09:00 11/22/24 09:06
Physical Exam
Physical Exam
Constitutional: No Acute Distress and Chronically Ill
Cardiovascular: Regular Rate and S1/S2; Negative Murmur or Rub
Pulmonary: Clear and Symmetric; Negative Wheezes, Rales or Rhonchi
Gastrointestinal: Soft, Non Tender, Non Distended and Normal Bowel Sounds
Skin: Warm and Dry; Negative Rash or Jaundice
Lines: Port (no erythema, warmth, tenderness; accessed and functional ) and Other (pacemaker no erythema, warmth, tenderness or fluctuance )
Lab / Diagnostic Study Results
11/22/24 02:58
11/22/24 02:58
Abs Immat Gran (auto) 0.4 10^3/uL (0-0.05) H 11/22/24 02:58
Absolute Neuts (auto) 15.4 10^3/uL (1.4-6.5) H 11/22/24 02:58
Absolute Lymphs (auto) 0.4 10^3/uL (1.2-3.4) L 11/22/24 02:58
Absolute Monos (auto) 0.7 10^3/uL (0.1-0.6) H 11/22/24 02:58
Absolute Basos (auto) 0.0 10^3/uL (0-0.2) 11/22/24 02:58
Immature Gran % 2.3 % (0-0.5) H 11/22/24 02:58
Neutrophils % 91.2 % (42.2-75.2) H 11/22/24 02:58
Lymphocytes % 2.1 % (20.5-51.1) L 11/22/24 02:58
Monocytes % 4.2 % (1.7-9.3) 11/22/24 02:58
Eosinophils % 0.0 % (0-6) 11/22/24 02:58
Basophils % 0.2 % (0-2) 11/22/24 02:58
Lactic Acid 1.8 mmol/L (0.7-2.0) 11/21/24 16:22
Ur Squamous Epith Cells 6-10 /LPF (Few) 11/21/24 16:22
Microbiology Results
Micro:
11/21/24 16:22 Urine Culture - Pending
Urine
11/21/24 16:41 Blood Culture - Preliminary
Blood/Venous Positive culture in progress
Gram Stain - Preliminary
11/21/24 16:29 Blood Culture - Preliminary
Blood/Venous Positive culture in progress
Gram Stain - Preliminary
11/21/24 16:50 Influenza Types A & B (MAGGIE) - Final
Nasal Swab Negative for Influenza A & B, NAAT
Negative results must be combined with clinical observations
and patient history.
Nucleic Acid Amplification test (NAAT)performed on the
[employer] platform.
09/16/24 13:53 Blood Culture - Final
Blood/Venous Gram Stain - Final
Klebsiella oxytoca
09/16/24 13:53 Blood Culture - Final
Blood/Venous Gram Stain - Final
Klebsiella oxytoca
05/03/24 12:23 Urine Culture - Final
Urine Klebsiella oxytoca
02/23/24 09:39 Urine Culture - Final
Urine Klebsiella oxytoca
Assessment / Plan
GNR Bacteremia
Immunosuppression
Port
Pacemaker
- Vyvgart depletes peripheral IgG levels and can be associated with infection as an ADR
- suspect port salvage failed given relapsed K oxytoca - recommend port removal and repeat TTE - consulted IR
- happily the port was for IVIG which he no longer requires, the Vyvgart does not require port for administration
- pacemaker site no erythema, warmth, tenderness or drainage.
- given GNR bacteremia with possible endovascular source repeat blood cultures x2
- UA no pyuria
- agree with cefepime pending ID and sensitivities, will likely plan suppression given hypogammaglobulinemia and pacemaker
Care Review
Plan reviewed with: Physician (Dr Castillo and Dr Louis)
[2024-11-22 12:02] LABS: Urine Sodium 85 mmol/L (30-90)
[2024-11-22 12:49] LABS: ALT (SGPT) 20 U/L (0-50); AST (SGOT) 29 U/L (17-59)
[2024-11-22 13:07] LABS: GGTP 40 U/L (15-73); LDH 223 U/L (120-246)
[2024-11-22] MEDS: MIRALAX 17 GRAMS PO (13:20)
[2024-11-22] MEDS: LOVENOX 40 MG SC (17:41)
[2024-11-22 20:47] LABS: Creatine Phosphokinase 88 U/L (55-170)
[2024-11-22 21:40] LABS: Blood Urea Nitrogen 35 mg/dl (9-20); Calcium 8.4 mg/dl (8.4-10.2); Carbon Dioxide 25 mmol/L (22-30); Estimated Creatinine Clearance 49 ml/min; Glucose 91 mg/dl (70-99); eGFR 55.19
[2024-11-22 21:55] LABS: Chloride 105 mmol/L (98-107); Potassium 4.1 mmol/L (3.5-5.1); Sodium 134 mmol/L (135-145)
[2024-11-22] MEDS: KLONOPIN 0.5 MG PO (22:40)
[2024-11-22] MEDS: ZYPREXA 5 MG PO (22:40)
[2024-11-22] MEDS: EFFEXOR XR 75 MG PO (22:40)
[2024-11-23] VITALS (9 sets, daily range): BP systolic 113–155; BP diastolic 56–80; PULSE 79; O2SAT 95; BMI 32.1; BMI 32.0
[2024-11-23] MEDS: LR 1000 IV ×3 (02:13→17:22)
[2024-11-23] MEDS: MAXIPIME 1000 MG IV ×4 (04:38→21:10)
[2024-11-23] MEDS: STERILE WATER FOR INJECTION 10 ML IV ×4 (04:38→21:10)
[2024-11-23] MEDS: SYNTHROID 75 MCG PO (05:54)
[2024-11-23 06:27] LABS: Hematocrit 27.4 % (39.0-52.0); Hemoglobin 9.2 g/dL (13.0-18.0); Mean Corp Hgb Conc. 33.6 g/dL (33.0-37.0); Mean Corpuscular Hgb 34.3 pg (27.0-31.0); Mean Corpuscular Volume 102.2 fL (80.0-94.0); Mean Platelet Volume 11.3 fL (7.4-10.4); Platelet Count 102 10^3/uL (130-400); Red Blood Cell Count 2.68 10^6/uL (4.70-6.10); Red Cell Dist. Width 14.1 % (11.5-14.5); White Blood Cell Count 11.6 10^3/uL (4.8-10.8)
[2024-11-23 06:43] LABS: Blood Urea Nitrogen 30 mg/dl (9-20); Calcium 8.6 mg/dl (8.4-10.2); Carbon Dioxide 27 mmol/L (22-30); Chloride 106 mmol/L (98-107); Estimated Creatinine Clearance 67 ml/min; Glucose 98 mg/dl (70-99); Potassium 4.1 mmol/L (3.5-5.1); Sodium 137 mmol/L (135-145); eGFR > 60.00
--- NOTE | 2024-11-23 08:05 | W.PN.HOSP.TC ---
Today's Communication/Plan
-
Follow blood cultures and port tip culture from yesterday.
Continue IV cefepime
Follow speech therapy recommendations, advance diet.
Speech recommending video swallow evaluation.
Outpatient follow-up on dysphagia.
Incentive spirometry-10 times a day.
Assessment / Plan
Assessment / Plan
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
Plan-
Gram-negative bacteremia
SIRS criteria met, no sepsis-suspected secondary to infected Port-
Leukopenic upon admission, leukocytosis improving from 17.1 on 11/22-11.4 on 11/23
Differential count pending.
CT abdomen and pelvis-no acute abnormalities noted, source of sepsis still pending.
Blood cultures x 8-nubsms-lmfqvidv for gram-negative bacilli, Klebsiella oxytoca
Similar episode of sepsis in September, suspect secondary to port, ID recommended removal of port. Appreciate ID inputs.
Patient currently on cefepime, day 2
Echocardiogram with no evidence for vegetations or valvular heart disease. EF within normal limits, no evidence for HFpEF or HFrEF.
Abdominal distention-
Nausea, emesis with right upper quadrant pain.
S/p cholecystectomy in the past.
Obtain obstruction series of abdomen.
CT abdomen and pelvis unrevealing.
Patient denies diarrhea currently.
Dysphagia-
Some concern for aspiration with patient and the family.
Patient was made n.p.o. yesterday, and speech therapy consulted.
Speech cleared for regular diet and thin liquids.
Acute hypoxemic respiratory failure-
Patient requiring 4 L of nasal cannula flow yesterday.
VBG showed no evidence for hypercapnia. No history of COPD.
Weaned off to 2 L today.
Likely secondary to MSK failure secondary to CIDP versus SIRS -with underlying bacteremia.
Wean off oxygen as tolerated.
Incentive spirometry to prevent basilar lobe atelectasis.
Leukopenia/leukocytosis-
Likely secondary to sepsis.
No differentials today, trend leukocyte count-differential count pending.
ANDREW-
Serum creatinine baseline 0.8
Upon admission serum creatinine-at 1.0, trending up today at 1.5
Continue IV lactated Ringers.
Repeat BMP in the p.m. today to trend renal function.
Likely secondary to sepsis versus intrinsic renal injury.
Obtain fractional excretion of sodium levels.
Monitor I & O.
CIDP-
On Vyvgart infusions.
Vyvgart held for now. Vyvgart causes hypogammaglobulinemia.
Monitor for symptoms of weakness, paresthesias, respiratory depression.
Hypertension-
Currently not on hypertensive meds
Likely because of orthostatic hypotension?
On fludrocortisone for hypotension.
Continue fludrocortisone.
Benign prostatic hyperplasia-
Currently on tamsulosin and mirabegron.
Continue home medications.
Monitor for urinary retention.
Bipolar disorder-
Continue home meds-lamotrigine, olanzapine, Wellbutrin, and clonazepam.
IBS-
On Linzess and bisacodyl.
Also takes Metamucil.
Continue home medication regimen.
Thrombocytopenia and dark brown urine--
Platelets count trending down-
141K to 111K to 103K today.
Reactive to sepsis, versus thrombolysis.
Liver function test, obtain LDH, haptoglobin, CPK levels.
Monitor platelet counts
DVT prophylaxis-
Lovenox SQ
CODE STATUS-
DNR.
Anticipated Discharge: 24 - 48 hours
Subjective/Interval History
-
Date of Service: November 23, 2024
Per Hero, His dizziness subsided. His shortness of breath is not different from baseline. He passed good bowel movement, his urine color is back to his baseline. His appetite is back, and he would like to have some food.
Patient also reports to have had symptoms of dysphagia and aspiration prior to admission. I spoke to on phone who also thinks there were some concerns with aspiration.
Objective Data
-
Labs:
Laboratory Results
11/22/24 11/23/24
21:08 05:51
WBC 11.6 H
Hgb 9.2 L
Hct 27.4 L
Plt Count 102 L
Sodium 134 L 137
Potassium 4.1 4.1
Chloride 105 106
Carbon Dioxide 25 27
BUN 35 H 30 H
Creatinine 1.3 1.1
Glucose 91 98
Calcium 8.4 8.6
Vital Signs:
Vital Signs
Temp Pulse Resp BP Pulse Ox
97.7 F 84 18 155/80 95
11/23/24 07:24 11/23/24 07:24 11/23/24 07:24 11/23/24 07:24 11/23/24 07:24
I&O
11/22/24 11/23/24 11/24/24
06:59 06:59 06:59
Intake Total 1375 / 1375
Balance 1375 / 1375
Review of Systems
-
History Source: Patient
Constitutional: Reports No Symptoms
Respiratory: Reports No Symptoms
Cardiac: Reports No Symptoms
Abdomen/GI: Reports No Symptoms
Genitourinary: Reports No Symptoms
Musculoskeletal: Reports No Symptoms
Neuro: Reports No Symptoms
Endocrine: Reports No Symptoms
Hematologic / Lymphatic: Reports No Symptoms
Allergy / Immunology: Reports No Symptoms
Physical Exam
-
General: No Apparent Distress and Comfortable
HEENT: Moist Mucous Membranes, Tracheostomy Collar and [place] Conjunctivae; Negative Thrush
Respiratory: Wheezes (In right middle lobe.) and Crackles (In bilateral lower lobes.)
Cardiac: Regular Rhythm and S1/S2; Negative Murmur, Rub or Gallop
GI: Soft, Nontender, Nondistended and Normal Bowel Sounds
Genito-urinary: No Costovertebral Tender
Musculoskeletal: No Clubbing, No Cyanosis and No Edema
Skin: Warm
Neuro: AO x 3 and No Motor Deficits
Psych: Calm
Data Reviewed
-
Medical Tests (Nuc Med, Echo etc): Image personally visualized and interpreted, Report Reviewed by me and Discussed with Physician
Labs: Labs Reviewed by me, Discussed with Physician and Discussed with Nurse
[2024-11-23] MEDS: MYRBETRIQ EXTENDED RELEASE 50 MG PO (08:20)
[2024-11-23] MEDS: RAZADYNE 8 MG PO ×2 (08:20→21:06)
[2024-11-23] MEDS: CRESTOR 10 MG PO (08:20)
[2024-11-23] MEDS: METAMUCIL, KONSYL 1 PACKET PO (08:21)
[2024-11-23] MEDS: FLORINEF 0.1 MG PO (08:21)
[2024-11-23] MEDS: FLOMAX 0.4 MG PO (08:21)
[2024-11-23] MEDS: WELLBUTRIN SR (12 hour sustained release) 100 MG PO (08:21)
[2024-11-23] MEDS: EFFEXOR XR 150 MG PO (08:21)
[2024-11-23] MEDS: LAMICTAL 200 MG PO ×2 (08:21→21:06)
[2024-11-23] MEDS: LOW STRENGTH ASPIRIN 81 MG PO (08:21)
[2024-11-23] MEDS: LINZESS 72 MCG PO (09:15)
--- NOTE | 2024-11-23 09:36 | W.PN.ID1 ---
Date of Service
Date of Service: November 23, 2024
Today's Communication
- port removed 11/22 and cath tip sent for culture - note very low sensitivity of this test, if negative does not rule out port infection
- repeat blood cultures x2 from 11/22 are no growth to date
- agree with cefepime pending ID and sensitivities
Assessment / Plan
GNR Bacteremia
Immunosuppression
Port
Pacemaker
- Vyvgart depletes peripheral IgG levels and can be associated with infection as an ADR
- suspect port salvage failed given relapsed K oxytoca
- port removed 11/22 and cath tip sent for culture - note very low sensitivity of this test, if negative does not rule out port infection
- happily the port was for IVIG which he no longer requires, the Vyvgart does not require port for administration
- pacemaker site no erythema, warmth, tenderness or drainage.
- repeat blood cultures x2 from 11/22 are no growth to date
- agree with cefepime pending ID and sensitivities, will likely plan suppression given hypogammaglobulinemia and pacemaker
Chief Complaint
-: Bacteremia and Other (probable port infection)
Subjective / Review of Systems
no further fevers
bp stable
port removed yesterday
Vital Signs / Physical Exam
Vital Signs
Vital Signs
Temp Pulse Resp BP Pulse Ox
97.7 F 84 18 155/80 95
11/23/24 07:24 11/23/24 07:24 11/23/24 07:24 11/23/24 07:24 11/23/24 07:24
Physical Exam
Constitutional: No Acute Distress
Cardiovascular: Regular Rate and S1/S2; Negative Murmur or Rub
Pulmonary: Clear and Symmetric; Negative Wheezes or Rales
Gastrointestinal: Soft, Non Tender, Non Distended and Normal Bowel Sounds
Skin: Warm and Dry; Negative Rash or Jaundice
Lines: Other (port site dressing clean, dry intact, no erythema; pacemaker no erythema, warmth, tenderness or drainage)
Objective Data
Lab Data
Lab Results
11/23/24 05:51
11/23/24 05:51
Estimated Creat Clear 67 ml/min 11/23/24 05:51
Lactic Acid 1.8 mmol/L (0.7-2.0) 11/21/24 16:22
Total Bilirubin 1.3 mg/dl (0.2-1.3) 11/21/24 16:08
GGT 40 U/L (15-73) 11/22/24 02:58
AST 29 U/L (17-59) 11/22/24 02:58
ALT 20 U/L (0-50) 11/22/24 02:58
Alkaline Phosphatase 102 U/L (38-126) 11/21/24 16:08
Most recent labs reviewed.
Micro Results:
11/22/24 15:10 Catheter Tip Culture - Preliminary
Catheter Tip No Growth After 18-24 Hours
11/21/24 16:41 Blood Culture - Preliminary
Blood/Venous Positive culture in progress
Gram Stain - Preliminary
11/21/24 16:29 Blood Culture - Preliminary
Blood/Venous Klebsiella oxytoca
Gram Stain - Preliminary
11/22/24 11:24 Blood Culture - Pending
Blood/Venous
11/22/24 10:35 Blood Culture - Pending
Blood/Venous
11/21/24 16:22 Urine Culture - Pending
Urine
11/21/24 16:50 Influenza Types A & B (MAGGIE) - Final
Nasal Swab Negative for Influenza A & B, NAAT
Negative results must be combined with clinical observations
and patient history.
Nucleic Acid Amplification test (NAAT)performed on the
[employer] platform.
[2024-11-23 09:40] LABS: Venous Blood Gas B.E. -0.4 mmol/L (-4 to +4); Venous Blood Gas HCO3 24.1 mmol/L (22-27); Venous Blood Gas O2 Sat % 98.5 %; Venous Blood Gas pCO2 38 mmHg (35-48); Venous Blood Gas pH 7.41 (7.32-7.43); Venous Blood Gas pO2 105 mmHg (30-50)
[2024-11-23] MEDS: MIRALAX 17 GRAMS PO (11:52)
--- NOTE | 2024-11-23 11:52 | PTOTSP ---
Dysphagia Eval
Patient presents with signs/reports concerning for mild dysphagia. Acute on chronic risk factors present (i.e., SOB with dx of SIRS; CIPD on Vyvgart, GERD, prior cervical fusion).
Recommend:
1. Regular, Thin
2. Meds as best tolerated
3. Strategies: OOB in chair and/or upright to 90 degrees, small single sips/bites with breaks for breathing, pick soft/moist foods, alternate sips/bites as needed, reflux precautions
4. Video swallow study to objectively assess swallowing and r/o aspiration
--- NOTE | 2024-11-23 15:21 | CM ---
Patient seen at bedside
IA completed
Dx: Fever of unknown source
Discussed CM role
Lives with his in a 1 story home, no steps
PLOF: independent with a walker
DME: Walker, shower chair
Has had [facility] in past, has been at [facility] in past
Denies insecurities
PT rec SNF - No pre auth needed
Left message with to obtain/review options to enter in careport
PCP: Peyman Moore
Pharmacy: [facility]
PLAN: SNF, pending bed availability when medically stable
[2024-11-23] MEDS: LOVENOX 40 MG SC (17:23)
[2024-11-23 17:40] LABS: Glucose - Point of Care 127 mg/dl (70-99)
[2024-11-23 20:39] LABS: Glucose - Point of Care 169 mg/dl (70-99)
[2024-11-23] MEDS: KLONOPIN 0.5 MG PO (21:13)
[2024-11-23] MEDS: ZYPREXA 5 MG PO (21:13)
[2024-11-23] MEDS: EFFEXOR XR 75 MG PO (21:13)
[2024-11-24] MEDS: LR 1000 IV (02:52)
[2024-11-24 03:00] VITALS: BP 166/83
[2024-11-24] MEDS: STERILE WATER FOR INJECTION 10 ML IV ×2 (04:36→09:49)
[2024-11-24] MEDS: MAXIPIME 1000 MG IV ×2 (04:36→09:48)
[2024-11-24] MEDS: SYNTHROID 75 MCG PO (05:20)
[2024-11-24 07:18] LABS: Hematocrit 26.3 % (39.0-52.0); Hemoglobin 9.2 g/dL (13.0-18.0); Mean Corpuscular Hgb 35.1 pg (27.0-31.0); Mean Corpuscular Volume 100.4 fL (80.0-94.0); Mean Platelet Volume 11.2 fL (7.4-10.4); Platelet Count 106 10^3/uL (130-400); Red Blood Cell Count 2.62 10^6/uL (4.70-6.10); Red Cell Dist. Width 13.6 % (11.5-14.5); White Blood Cell Count 7.4 10^3/uL (4.8-10.8)
[2024-11-24 07:21] VITALS: BP 155/85
[2024-11-24 07:38] LABS: Glucose - Point of Care 129 mg/dl (70-99)
[2024-11-24 07:50] LABS: Blood Urea Nitrogen 19 mg/dl (9-20); Calcium 8.8 mg/dl (8.4-10.2); Carbon Dioxide 25 mmol/L (22-30); Chloride 106 mmol/L (98-107); Estimated Creatinine Clearance 92 ml/min; Glucose 121 mg/dl (70-99); Potassium 3.9 mmol/L (3.5-5.1); Sodium 140 mmol/L (135-145); eGFR > 60.00
[2024-11-24] MEDS: EFFEXOR XR 150 MG PO (07:51)
[2024-11-24] MEDS: MYRBETRIQ EXTENDED RELEASE 50 MG PO (07:51)
[2024-11-24] MEDS: RAZADYNE 8 MG PO ×2 (07:51→20:04)
[2024-11-24] MEDS: FLORINEF 0.1 MG PO (07:52)
[2024-11-24] MEDS: LAMICTAL 200 MG PO ×2 (07:52→20:07)
[2024-11-24] MEDS: WELLBUTRIN SR (12 hour sustained release) 100 MG PO (07:52)
[2024-11-24] MEDS: METAMUCIL, KONSYL 1 PACKET PO (07:52)
[2024-11-24] MEDS: LOW STRENGTH ASPIRIN 81 MG PO (07:53)
[2024-11-24] MEDS: FLOMAX 0.4 MG PO (07:53)
[2024-11-24] MEDS: CRESTOR 10 MG PO (07:53)
[2024-11-24] MEDS: LINZESS 72 MCG PO (07:58)
--- NOTE | 2024-11-24 08:22 | W.PN.HOSP.TC ---
Today's Communication/Plan
-
Continue cefepime-day 4
RICHARD susceptible to cefepime, ceftazidime, ceftriaxone.
Assessment / Plan
Assessment / Plan
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
Plan-
Gram-negative bacteremia
SIRS criteria met, no sepsis-suspected secondary to infected Port-
Leukopenic upon admission, leukocytosis improving from 17.1 on 11/22-11.4 on 11/23
Repeat blood cultures on 11/22, port tip culture-s/p 24 hours-negative.
CT abdomen and pelvis-no acute abnormalities noted, source of sepsis unclear at this point
Blood cultures x 5-sdqvmr-wjpmzijs for gram-negative bacilli, Klebsiella oxytoca
Similar episode of sepsis in September, suspect secondary to port, ID recommended removal of port. Appreciate ID inputs.
Patient currently on cefepime, day 4.
Echocardiogram with no evidence for vegetations or valvular heart disease. EF within normal limits, no evidence for HFpEF or HFrEF.
Abdominal distention-
Nausea, emesis with right upper quadrant pain.
S/p cholecystectomy in the past.
Obtain obstruction series of abdomen.
CT abdomen and pelvis unrevealing.
Patient denies diarrhea currently.
Dysphagia-
Some concern for aspiration with patient and the family.
Speech cleared for regular diet and thin liquids.
S/p video swallow study-pending.
Acute hypoxemic respiratory failure-
Patient requiring 4 L of nasal cannula flow yesterday.
VBG showed no evidence for hypercapnia. No history of COPD.
Weaned off to 2 L today.
Likely secondary to MSK failure secondary to CIDP versus SIRS -with underlying bacteremia.
Wean off oxygen as tolerated.
Incentive spirometry to prevent basilar lobe atelectasis.
Leukopenia/leukocytosis-
Likely secondary to sepsis.
No differentials today, trend leukocyte count-differential count pending.
ANDREW-
Serum creatinine baseline 0.8
Upon admission serum creatinine-at 1.0, trending up today at 1.5
Continue IV lactated Ringers.
Repeat BMP in the p.m. today to trend renal function.
Likely secondary to sepsis versus intrinsic renal injury.
Obtain fractional excretion of sodium levels.
Monitor I & O.
CIDP-
On Vyvgart infusions.
Vyvgart held for now. Vyvgart causes hypogammaglobulinemia.
Monitor for symptoms of weakness, paresthesias, respiratory depression.
Hypertension-
Currently not on hypertensive meds
Likely because of orthostatic hypotension?
On fludrocortisone for hypotension.
Continue fludrocortisone.
Benign prostatic hyperplasia-
Currently on tamsulosin and mirabegron.
Continue home medications.
Monitor for urinary retention.
Bipolar disorder-
Continue home meds-lamotrigine, olanzapine, Wellbutrin, and clonazepam.
IBS-
On Linzess and bisacodyl.
Also takes Metamucil.
Continue home medication regimen.
Thrombocytopenia and dark brown urine--
Platelets count trending down-
141K to 111K to 103K today.
Reactive to sepsis, versus thrombolysis.
Liver function test, obtain LDH, haptoglobin, CPK levels.
Monitor platelet counts
DVT prophylaxis-
Lovenox SQ
CODE STATUS-
DNR.
Anticipated Discharge: 24 - 48 hours
Subjective/Interval History
-
Date of Service: November 24, 2024
No complaints today. S/p video swallow study.
Objective Data
-
Labs:
Laboratory Results
11/24/24
06:30
WBC 7.4
Hgb 9.2 L
Hct 26.3 L
Plt Count 106 L
Sodium 140
Potassium 3.9
Chloride 106
Carbon Dioxide 25
BUN 19
Creatinine 0.8
Glucose 121 H
Calcium 8.8
Vital Signs:
Vital Signs
Temp Pulse Resp BP Pulse Ox
97.6 F 52 16 156/75 98
11/24/24 07:21 11/24/24 07:21 11/24/24 07:21 11/24/24 07:21 11/24/24 07:21
I&O
11/23/24 11/24/24 11/25/24
06:59 06:59 06:59
Intake Total 1375 / 1375 720 / 720
Output Total 1950 / 1950
Balance 1375 / 1375 -1230 / -1230
Review of Systems
-
History Source: Patient
Constitutional: Reports No Symptoms
EENT: Reports No Symptoms Reported
Respiratory: Reports No Symptoms
Cardiac: Reports No Symptoms
Abdomen/GI: Reports No Symptoms
Genitourinary: Reports No Symptoms
Musculoskeletal: Reports No Symptoms
Skin: Reports No Symptoms
Neuro: Reports No Symptoms
Endocrine: Reports No Symptoms
Hematologic / Lymphatic: Reports No Symptoms
Physical Exam
-
General: Comfortable; Negative Respiratory Distress
HEENT: Moist Mucous Membranes
Respiratory: Clear to Auscultation; Negative Wheezes, Rales or Rhonchi
Cardiac: Regular Rhythm and S1/S2; Negative Murmur, Rub or Gallop
GI: Soft, Nontender, Nondistended and Normal Bowel Sounds
Musculoskeletal: No Clubbing, No Cyanosis and No Edema
Neuro: AO x 3 and No Motor Deficits
Psych: Calm
Data Reviewed
-
Labs: Labs Reviewed by me, Discussed with Physician and Discussed with Nurse
[2024-11-24 10:55] VITALS: BP 132/66
--- NOTE | 2024-11-24 11:12 | CM ---
spoke with patient & request referral for [facility] SN[facility]
PT rec SNF
Referral placed in [facility]
no pre auth needed
PLAN: SNF, pending bed availability when medically stable
--- NOTE | 2024-11-24 11:31 | PTOTSP ---
Videofluroscopic swallow study
WFL-mild oral/pharyngeal dysphagia. No laryngeal penetration or aspiration. No more than mild pharyngeal residue and trace esophageal retention in distal esophagus.
Recommend:
1. Regular, Thin
2 Meds as best tolerated
3. Strategies: OOB in chair and/or upright to 90 degrees, small single sips/bites with breaks for breathing, pick soft/moist foods, alternate sips/bites as needed, pick easy to swallow foods for later in day as a compensatory strategy to factor for
fatigue, reflux precautions
4. No further dysphagia tx warranted. Please reconsult as appropriate
[2024-11-24 11:50] LABS: Glucose - Point of Care 185 mg/dl (70-99)
[2024-11-24] MEDS: MIRALAX 17 GRAMS PO (12:39)
[2024-11-24 14:56] VITALS: BP 145/66
--- NOTE | 2024-11-24 16:18 | W.PN.ID1 ---
Date of Service
Date of Service: November 24, 2024
Today's Communication
- start ceftriaxone x2 weeks, then transition to cefdinir 300 mg PO BID as suppression given pacemaker - script sent in to his pharmacy
- script provided to case advocate and my office
- midline
- follow up with ID in about 6 months
Assessment / Plan
GNR Bacteremia
Immunosuppression
Port - removed
Pacemaker
- Vyvgart depletes peripheral IgG levels and can be associated with infection as an ADR
- suspect port salvage failed given relapsed K oxytoca
- port removed 11/22 and cath tip sent for culture - note very low sensitivity of this test, if negative does not rule out port infection
- happily the port was for IVIG which he no longer requires, the Vyvgart does not require port for administration
- pacemaker site no erythema, warmth, tenderness or drainage.
- repeat blood cultures x2 from 11/22 are no growth to date
- start ceftriaxone x2 weeks, then transition to cefdinir 300 mg PO BID as suppression given pacemaker - script sent in to his pharmacy
- script provided to case advocate and my office
- midline
- follow up with ID in about 6 months
Chief Complaint
-: Bacteremia and Other (probable port infection)
Subjective / Review of Systems
afebrile
bp stable
bacteremia cleared
sensitives back
Vital Signs / Physical Exam
Vital Signs
Vital Signs
Temp Pulse Resp BP Pulse Ox
98.3 F 78 17 145/66 95
11/24/24 14:56 11/24/24 14:56 11/24/24 14:56 11/24/24 14:56 11/24/24 14:56
Physical Exam
Constitutional: No Acute Distress
Cardiovascular: Regular Rate and S1/S2; Negative Murmur or Rub
Pulmonary: Clear and Symmetric; Negative Wheezes or Rales
Gastrointestinal: Soft, Non Tender, Non Distended and Normal Bowel Sounds
Skin: Warm and Dry; Negative Rash or Jaundice
Lines: Other (pacemaker no erythema, warmth, tenderness or swelling)
Objective Data
Lab Data
Lab Results
11/24/24 06:30
11/24/24 06:30
Estimated Creat Clear 92 ml/min 11/24/24 06:30
Lactic Acid 1.8 mmol/L (0.7-2.0) 11/21/24 16:22
Total Bilirubin 1.3 mg/dl (0.2-1.3) 11/21/24 16:08
GGT 40 U/L (15-73) 11/22/24 02:58
AST 29 U/L (17-59) 11/22/24 02:58
ALT 20 U/L (0-50) 11/22/24 02:58
Alkaline Phosphatase 102 U/L (38-126) 11/21/24 16:08
Most recent labs reviewed.
Micro Results:
11/22/24 11:24 Blood Culture - Preliminary
Blood/Venous No Growth in 48 hours- Final report to follow
11/22/24 15:10 Catheter Tip Culture - Preliminary
Catheter Tip No Growth After 48 Hours
11/22/24 10:35 Blood Culture - Preliminary
Blood/Venous No Growth in 48 hours- Final report to follow
11/21/24 16:41 Blood Culture - Preliminary
Blood/Venous Klebsiella oxytoca
Gram Stain - Preliminary
11/21/24 16:29 Blood Culture - Final
Blood/Venous Klebsiella oxytoca
Gram Stain - Final
11/21/24 16:22 Urine Culture - Final
Urine Streptococcus agalactiae
11/21/24 16:50 Influenza Types A & B (MAGGIE) - Final
Nasal Swab Negative for Influenza A & B, NAAT
Negative results must be combined with clinical observations
and patient history.
Nucleic Acid Amplification test (NAAT)performed on the
[employer] platform.
[2024-11-24] MEDS: ROCEPHIN 2000 MG IV (16:29)
[2024-11-24] MEDS: STERILE WATER FOR INJECTION 20 ML IV (16:30)
[2024-11-24 16:40] LABS: Glucose - Point of Care 123 mg/dl (70-99)
[2024-11-24] MEDS: LOVENOX 40 MG SC (17:24)
[2024-11-24 19:03] VITALS: BP 160/72
[2024-11-24 20:23] LABS: Glucose - Point of Care 144 mg/dl (70-99)
[2024-11-24] MEDS: KLONOPIN 0.5 MG PO (21:26)
[2024-11-24] MEDS: EFFEXOR XR 75 MG PO (21:26)
[2024-11-24] MEDS: ZYPREXA 5 MG PO (21:26)
[2024-11-24 23:00] VITALS: BP 157/76
[2024-11-25] VITALS (8 sets, daily range): BP systolic 115–170; BP diastolic 59–88; PULSE 77–83; O2SAT 97–98
[2024-11-25 02:30] LABS: Haptoglobin 132 mg/dL (30-200)
[2024-11-25] MEDS: SYNTHROID 75 MCG PO (05:57)
[2024-11-25 06:26] LABS: Hematocrit 28.7 % (39.0-52.0); Hemoglobin 9.7 g/dL (13.0-18.0); Mean Corp Hgb Conc. 33.8 g/dL (33.0-37.0); Mean Corpuscular Hgb 34.8 pg (27.0-31.0); Mean Corpuscular Volume 102.9 fL (80.0-94.0); Mean Platelet Volume 11.2 fL (7.4-10.4); Platelet Count 127 10^3/uL (130-400); Red Blood Cell Count 2.79 10^6/uL (4.70-6.10); Red Cell Dist. Width 13.3 % (11.5-14.5)
[2024-11-25 06:35] LABS: Blood Urea Nitrogen 17 mg/dl (9-20); Calcium 9.5 mg/dl (8.4-10.2); Carbon Dioxide 29 mmol/L (22-30); Chloride 104 mmol/L (98-107); Estimated Creatinine Clearance 92 ml/min; Glucose 119 mg/dl (70-99); Potassium 3.8 mmol/L (3.5-5.1); Sodium 141 mmol/L (135-145); eGFR > 60.00
[2024-11-25 08:09] LABS: Glucose - Point of Care 148 mg/dl (70-99)
[2024-11-25] MEDS: CRESTOR 10 MG PO (08:24)
[2024-11-25] MEDS: LAMICTAL 200 MG PO ×2 (08:24→21:10)
[2024-11-25] MEDS: EFFEXOR XR 150 MG PO (08:24)
[2024-11-25] MEDS: WELLBUTRIN SR (12 hour sustained release) 100 MG PO (08:24)
[2024-11-25] MEDS: METAMUCIL, KONSYL 1 PACKET PO (08:24)
[2024-11-25] MEDS: FLORINEF 0.1 MG PO (08:24)
[2024-11-25] MEDS: RAZADYNE 8 MG PO ×2 (08:24→21:10)
[2024-11-25] MEDS: MYRBETRIQ EXTENDED RELEASE 50 MG PO (08:24)
[2024-11-25] MEDS: LOW STRENGTH ASPIRIN 81 MG PO (08:24)
[2024-11-25] MEDS: LINZESS 72 MCG PO (08:25)
[2024-11-25] MEDS: FLOMAX 0.4 MG PO (08:25)
--- NOTE | 2024-11-25 09:06 | W.PN.HOSP.TC ---
Addendum entered and electronically signed by Aleks Castillo DO 11/26/24 12:22:
CDI: Acute Metabolic Encephalopathy
Original Note:
Today's Communication/Plan
-
Which to ceftriaxone.
Vyvgart shot today
Ready for discharge, pending SNF placement.
Assessment / Plan
Assessment / Plan
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
Plan-
Gram-negative bacteremia
SIRS criteria met, no sepsis-suspected secondary to infected Port-
Leukopenic upon admission, leukocytosis improving from 17.1 on 11/22-11.4 on 11/23
Repeat blood cultures on 11/22, port tip culture-s/p 24 hours-negative.
CT abdomen and pelvis-no acute abnormalities noted, source of sepsis unclear at this point
Blood cultures x 5-[id number]-eymecilm for gram-negative bacilli, Klebsiella oxytoca
Similar episode of sepsis in September, suspect secondary to port, ID recommended removal of port. Appreciate ID inputs.
Patient currently changed to ceftriaxone. appreciate ID inputs
Will switch to oral cefdinir after 2 weeks per ID recommendations.
Echocardiogram with no evidence for vegetations or valvular heart disease. EF within normal limits, no evidence for HFpEF or HFrEF.
Abdominal distention-
Nausea, emesis with right upper quadrant pain.
S/p cholecystectomy in the past.
Obtain obstruction series of abdomen.
CT abdomen and pelvis unrevealing.
Patient denies diarrhea currently.
Dysphagia-
Some concern for aspiration with patient and the family.
Speech cleared for regular diet and thin liquids.
S/p video swallow study-pending.
Acute hypoxemic respiratory failure-
Patient requiring 4 L of nasal cannula flow yesterday.
VBG showed no evidence for hypercapnia. No history of COPD.
Weaned off to 2 L today.
Likely secondary to MSK failure secondary to CIDP versus SIRS -with underlying bacteremia.
Wean off oxygen as tolerated.
Incentive spirometry to prevent basilar lobe atelectasis.
Leukopenia/leukocytosis-
Likely secondary to sepsis.
No differentials today, trend leukocyte count-differential count pending.
ANDREW-
Serum creatinine baseline 0.8
Upon admission serum creatinine-at 1.0, trending up today at 1.5
Continue IV lactated Ringers.
Repeat BMP in the p.m. today to trend renal function.
Likely secondary to sepsis versus intrinsic renal injury.
Obtain fractional excretion of sodium levels.
Monitor I & O.
CIDP-
On Vyvgart infusions.
tried to get in touch with 3rd floor pharmacist, no response. Tried calling [employer] laborer and [place] texting to resume Vyvgart. Vyvgart causes hypogammaglobulinemia.
Monitor for symptoms of weakness, paresthesias, respiratory depression.
Hypertension-
Currently not on hypertensive meds
Likely because of orthostatic hypotension?
On fludrocortisone for hypotension.
Continue fludrocortisone.
Benign prostatic hyperplasia-
Currently on tamsulosin and mirabegron.
Continue home medications.
Monitor for urinary retention.
Bipolar disorder-
Continue home meds-lamotrigine, olanzapine, Wellbutrin, and clonazepam.
IBS-
On Linzess and bisacodyl.
Also takes Metamucil.
Continue home medication regimen.
Thrombocytopenia and dark brown urine--
Platelets count trending down-
141K to 111K to 103K today.
Reactive to sepsis, versus thrombolysis.
Liver function test, obtain LDH, haptoglobin, CPK levels.
Monitor platelet counts
DVT prophylaxis-
Lovenox SQ
CODE STATUS-
DNR.
Anticipated Discharge: Within 24 hours
Subjective/Interval History
-
Date of Service: November 25, 2024
Patient feels weak, short of breath, dizzy. This is common for him when he is due to get his Vyvgart injection.
Objective Data
-
Labs:
Laboratory Results
11/25/24
05:42
WBC 5.0
Hgb 9.7 L
Hct 28.7 L
Plt Count 127 L
Sodium 141
Potassium 3.8
Chloride 104
Carbon Dioxide 29
BUN 17
Creatinine 0.8
Glucose 119 H
Calcium 9.5
Vital Signs:
Vital Signs
Temp Pulse Resp BP Pulse Ox
97.4 F 79 18 115/83 95
11/25/24 07:49 11/25/24 07:49 11/25/24 07:49 11/25/24 07:49 11/25/24 07:49
I&O
11/24/24 11/25/24 11/26/24
06:59 06:59 06:59
Intake Total 720 / 720 840 / 840
Output Total 1950 / 1950 2200 / 2200
Balance -1230 / -1230 -1360 / -1360
Review of Systems
-
History Source: Patient
Constitutional: Reports Fatigue and Weakness
Respiratory: Reports Trouble Breathing
Cardiac: Reports No Symptoms
Abdomen/GI: Reports No Symptoms
Breast: Reports No Symptoms
Genitourinary: Reports No Symptoms
Musculoskeletal: Reports No Symptoms
Skin: Reports No Symptoms
Neuro: Reports No Symptoms
Endocrine: Reports No Symptoms
Hematologic / Lymphatic: Reports No Symptoms
Allergy / Immunology: Reports No Symptoms
Physical Exam
-
General: No Apparent Distress and Respiratory Distress (2lt nasal cannula flow)
HEENT: Moist Mucous Membranes
Respiratory: Clear to Auscultation; Negative Wheezes, Rales, Rhonchi or Crackles
Cardiac: Regular Rhythm and S1/S2; Negative Murmur, Rub or Gallop
GI: Soft, Nontender, Nondistended and Normal Bowel Sounds
Musculoskeletal: No Clubbing, No Cyanosis and No Edema
Skin: Warm
Neuro: AO x 3 and No Motor Deficits
Psych: Calm
[2024-11-25 11:47] LABS: Glucose - Point of Care 136 mg/dl (70-99)
[2024-11-25 13:06] LABS: Folate 18.5 ng/ml (2.76-20); Vitamin B12 896 pg/ml (239-931)
--- NOTE | 2024-11-25 13:21 | CM ---
Patient seen at bedside with
patient will need IV antibiotic-script for IV Ceftriaxone 2gm IV Q24h end date 12/05 on chart
patient has midline
[facility] has no beds available
[facility] request [facility] - entered in [facility]
Called Lorena from [facility] and she is checking bed availability, LM with [facility]
no pre-auth needed
PLAN: SNF with IV antibiotic, pending acceptance/bed availability
[2024-11-25] MEDS: MIRALAX PO (14:05)
--- NOTE | 2024-11-25 14:12 | W.PN.ID1 ---
Date of Service
Date of Service: November 25, 2024
Today's Communication
- start ceftriaxone x2 weeks, then transition to cefdinir 300 mg PO BID as suppression given pacemaker - script sent in to his pharmacy
- script provided to correctional casework specialist and my office
- midline
- follow up with ID in about 6 months
Assessment / Plan
GNR Bacteremia
Immunosuppression
Port - removed
Pacemaker
- Vyvgart depletes peripheral IgG levels and can be associated with infection as an ADR
- suspect port salvage failed given relapsed K oxytoca
- port removed 11/22 and cath tip sent for culture - note very low sensitivity of this test, if negative does not rule out port infection
- happily the port was for IVIG which he no longer requires, the Vyvgart does not require port for administration
- pacemaker site no erythema, warmth, tenderness or drainage.
- repeat blood cultures x2 from 11/22 are no growth to date
- start ceftriaxone x2 weeks, then transition to cefdinir 300 mg PO BID as suppression given pacemaker - script sent in to his pharmacy
- script provided to correctional casework specialist and my office
- midline
- follow up with ID in about 6 months
Chief Complaint
-: Bacteremia and Other (probable port infection)
Subjective / Review of Systems
afebrile
bp stable
tolerating current therapies
no new complaints
Vital Signs / Physical Exam
Vital Signs
Vital Signs
Temp Pulse Resp BP Pulse Ox
97.8 F 77 18 123/59 96
11/25/24 10:45 11/25/24 10:45 11/25/24 10:45 11/25/24 10:45 11/25/24 10:45
Physical Exam
Constitutional: No Acute Distress
Cardiovascular: Regular Rate and S1/S2; Negative Murmur or Rub
Pulmonary: Clear and Symmetric; Negative Wheezes or Rales
Gastrointestinal: Soft, Non Tender, Non Distended and Normal Bowel Sounds
Skin: Warm and Dry; Negative Rash or Jaundice
Lines: Other (pacemaker - no erythema, warmth, tenderness or fluctuance)
Objective Data
Lab Data
Lab Results
11/25/24 05:42
11/25/24 05:42
Estimated Creat Clear 92 ml/min 11/25/24 05:42
Lactic Acid 1.8 mmol/L (0.7-2.0) 11/21/24 16:22
Total Bilirubin 1.3 mg/dl (0.2-1.3) 11/21/24 16:08
GGT 40 U/L (15-73) 11/22/24 02:58
AST 29 U/L (17-59) 11/22/24 02:58
ALT 20 U/L (0-50) 11/22/24 02:58
Alkaline Phosphatase 102 U/L (38-126) 11/21/24 16:08
Most recent labs reviewed.
Micro Results:
11/22/24 11:24 Blood Culture - Preliminary
Blood/Venous No Growth in 72 hours- Final report to follow
11/22/24 10:35 Blood Culture - Preliminary
Blood/Venous No Growth in 72 hours- Final report to follow
11/22/24 15:10 Catheter Tip Culture - Final
Catheter Tip No Growth After 72 Hours
11/21/24 16:41 Blood Culture - Preliminary
Blood/Venous Klebsiella oxytoca
Gram Stain - Preliminary
11/21/24 16:29 Blood Culture - Final
Blood/Venous Klebsiella oxytoca
Gram Stain - Final
11/21/24 16:22 Urine Culture - Final
Urine Streptococcus agalactiae
11/21/24 16:50 Influenza Types A & B (MAGGIE) - Final
Nasal Swab Negative for Influenza A & B, NAAT
Negative results must be combined with clinical observations
and patient history.
Nucleic Acid Amplification test (NAAT)performed on the
[employer] platform.
--- NOTE | 2024-11-25 15:28 | PN.CDI ---
CDI
- -
CDI:
Physician Documentation Request
Admit Date: 11/21/24 20:51
Dear Doctor Jonathan,
Clinical Indicators:
Patient admitted with acute hypoxic respiratory failure and ANDREW.
Fever 104.1 with chills, rigors on admission.
516 PN, 'Presented with encephalopathy that improved, suspect aspiration event at that time.'
Please clarify the type of encephalopathy:
Acute Metabolic Encephalopathy
Other encephalopathy, please specify type
Use of terms such as suspected, likely, concern for, or probable (associated with a specific diagnosis that is being evaluated, monitored, or treated as if it exists) are acceptable and can be coded in the inpatient setting, when documented at the
time of discharge.
Thank you,
MARY Lara RN
CDI Specialist
available via tiger text
Please use your independent medical judgment in providing your response.
--- NOTE | 2024-11-25 15:47 | PN.CDI ---
CDI
- -
CDI:
Physician Documentation Request
Admit Date: 11/21/24 20:51
Dear Doctor Jonathan,
Clinical Indicators:
Patient admitted with sepsis and ANDREW.
11/25 PN, 'Presented with encephalopathy that improved, suspect aspiration event at that time.'
Please clarify the type of encephalopathy:
Acute Metabolic Encephalopathy
Other encephalopathy, please specify type
Use of terms such as suspected, likely, concern for, or probable (associated with a specific diagnosis that is being evaluated, monitored, or treated as if it exists) are acceptable and can be coded in the inpatient setting, when documented at the
time of discharge.
Thank you,
MARY Lara RN
CDI Specialist
available via tiger text
Please use your independent medical judgment in providing your response.
[2024-11-25] MEDS: STERILE WATER FOR INJECTION 20 ML IV (16:12)
[2024-11-25] MEDS: ROCEPHIN 2000 MG IV (16:12)
[2024-11-25] MEDS: LOVENOX 40 MG SC (16:23)
[2024-11-25 16:57] LABS: Glucose - Point of Care 139 mg/dl (70-99)
[2024-11-25 20:34] LABS: Glucose - Point of Care 144 mg/dl (70-99)
[2024-11-25] MEDS: ZYPREXA 5 MG PO (21:10)
[2024-11-25] MEDS: EFFEXOR XR 75 MG PO (21:10)
[2024-11-25] MEDS: KLONOPIN 0.5 MG PO (21:11)
[2024-11-26] VITALS (8 sets, daily range): BP systolic 143–166; BP diastolic 64–96
[2024-11-26 05:38] LABS: Blood Urea Nitrogen 14 mg/dl (9-20); Calcium 9.6 mg/dl (8.4-10.2); Carbon Dioxide 29 mmol/L (22-30); Chloride 103 mmol/L (98-107); Estimated Creatinine Clearance 92 ml/min; Glucose 129 mg/dl (70-99); Potassium 3.6 mmol/L (3.5-5.1); Sodium 142 mmol/L (135-145); eGFR > 60.00
[2024-11-26 05:44] LABS: Hematocrit 29.7 % (39.0-52.0); Mean Corp Hgb Conc. 33.7 g/dL (33.0-37.0); Mean Platelet Volume 10.6 fL (7.4-10.4); Platelet Count 148 10^3/uL (130-400); Red Blood Cell Count 2.94 10^6/uL (4.70-6.10); Red Cell Dist. Width 13.2 % (11.5-14.5); White Blood Cell Count 5.1 10^3/uL (4.8-10.8)
[2024-11-26] MEDS: SYNTHROID 75 MCG PO (06:40)
[2024-11-26 07:47] LABS: Glucose - Point of Care 129 mg/dl (70-99)
[2024-11-26] MEDS: FLORINEF 0.1 MG PO (08:02)
[2024-11-26] MEDS: LOW STRENGTH ASPIRIN 81 MG PO (08:02)
[2024-11-26] MEDS: MYRBETRIQ EXTENDED RELEASE 50 MG PO (08:02)
[2024-11-26] MEDS: EFFEXOR XR 150 MG PO (08:02)
[2024-11-26] MEDS: RAZADYNE 8 MG PO ×2 (08:02→21:40)
[2024-11-26] MEDS: METAMUCIL, KONSYL 1 PACKET PO (08:02)
[2024-11-26] MEDS: CRESTOR 10 MG PO (08:02)
[2024-11-26] MEDS: WELLBUTRIN SR (12 hour sustained release) 100 MG PO (08:02)
[2024-11-26] MEDS: LINZESS 72 MCG PO (08:03)
[2024-11-26] MEDS: LAMICTAL 200 MG PO ×2 (08:03→21:40)
[2024-11-26] MEDS: FLOMAX 0.4 MG PO (08:03)
--- NOTE | 2024-11-26 11:21 | W.PN.HOSP.TC ---
Today's Communication/Plan
-
Continue current management
Discharge to SNF when bed available
Assessment / Plan
Assessment / Plan
#Klebsiella oxytoca bacteremia
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
#S/p port removal
-SIRS criteria met, suspected secondary to infected Port however port tip culture negative
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
-Leukopenic upon admission, leukocytosis improving from 17.1 on 11/22-11.4, now WNL
-Repeat blood cultures on 11/22, port tip culture-s/p 24 hours-negative.
-CT abdomen and pelvis-no acute abnormalities noted;,TTE negative
-Repeat blood cultures have remained NGTD
-ID recommending 2 weeks of IV ceftriaxone with transition to cefdinir chronically
-Will continue to trend CBC and temperature curve on current regimen
-Plan for OP infectious disease follow-up in office
#Acute hypoxemic respiratory failure
#Suspected aspiration pneumonitis
-Upon presentation had metabolic encephalopathy due to infection, suspect he aspirated during this time
-Had leukocytosis and O2 requirements of up to 4 to 5 L, now without leukocytosis and down to 2 L O2
-Imaging here without any signs of consolidation or infection, has improved daily; VBG without hypercapnia
-Is currently on antibiotics as above, also currently receiving pulmonary toileting
-Continue to wean oxygen for SpO2 goal >90%
-Continue pulmonary toileting, encourage OOB
#CIDP
-Status post IVIG which he eventually developed reaction to; currently receiving Vyvgart infusions subcutaneous
-Received dose of Vyvgart on 11/25, will plan to continue with home supply when sent to SNF
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
-Monitor clinically
#Primary Hypertension
#Orthostatic hypotension
-Currently not on antihypertensive regimen due to orthostasis
-Does take fludrocortisone chronically for his orthostatic state
-Currently without symptoms
#Benign prostatic hyperplasia
-Currently on tamsulosin and mirabegron.
-Continue home medications.
-Monitor for urinary retention.
#Bipolar disorder
#Anxiety
-Continue home meds of lamotrigine, olanzapine, Wellbutrin, and clonazepam.
#IBS
-On Linzess and bisacodyl; Also takes Metamucil.
-Continue home medication regimen
-Stable
#Gross hematuria on arrival without recurrence
-Will plan for OP urology follow-up at [facility], consider cystoscopy
Diet- Regular
DVT prophylaxis- Lovenox SQ
CODE STATUS- DNR.
Medically stable for discharge to SNF once bed available
Anticipated Discharge: 24 - 48 hours
Subjective/Interval History
-
Date of Service: November 26, 2024
Seen and examined at the bedside. No acute events reported overnight. AFVSS on 2 L O2 with SpO2 96%
Labs are stable. O2 requirements downtrending
Patient states he feels well, is breathing better. Denies any new complaints this morning
Objective Data
-
Labs:
Laboratory Results
11/26/24
04:44
WBC 5.1
Hgb 10.0 L
Hct 29.7 L
Plt Count 148
Sodium 142
Potassium 3.6
Chloride 103
Carbon Dioxide 29
BUN 14
Creatinine 0.8
Glucose 129 H
Calcium 9.6
Vital Signs:
Vital Signs
Temp Pulse Resp BP Pulse Ox
98.3 F 78 17 166/96 96
11/26/24 07:05 11/26/24 07:05 11/26/24 07:05 11/26/24 07:05 11/26/24 10:35
I&O
11/25/24 11/26/24 11/27/24
06:59 06:59 06:59
Intake Total 840 / 840 480 / 480
Output Total 2200 / 2200 2925 / 2925 800 / 800
Balance -1360 / -1360 -2445 / -2445 -800 / -800
Review of Systems
-
History Source: Patient
All other systems: Reviewed and negative
Physical Exam
-
General: Well Developed, Well Nourished, No Apparent Distress and Appears Chronically Ill
HEENT: Normocephalic, Atraumatic, Moist Mucous Membranes, Anicteric and Oxygen
Respiratory: Clear to Auscultation and Non Labored Respirations; Negative Accessory Resp Muscle Use
Cardiac: Regular Rhythm and S1/S2; Negative Murmur, Rub or Gallop
GI: Soft, Nontender, Nondistended and Normal Bowel Sounds
Musculoskeletal: No Clubbing, No Cyanosis and No Edema
Skin: Warm, Dry and Normal Turgor; Negative Rash
Neuro: AO x 3, Nonfocal/Grossly Intact (Generalized weakness though nonfocal) and Central Nerve's Intact; Negative Tremors
Psych: Calm
Data Reviewed
-
Labs: Labs Reviewed by me and Discussed with Patient
[2024-11-26] MEDS: MIRALAX 17 GRAMS PO (12:02)
[2024-11-26 12:03] LABS: Glucose - Point of Care 174 mg/dl (70-99)
[2024-11-26 17:01] LABS: Glucose - Point of Care 116 mg/dl (70-99)
[2024-11-26] MEDS: ROCEPHIN 2000 MG IV (17:05)
[2024-11-26] MEDS: STERILE WATER FOR INJECTION 20 ML IV (17:06)
[2024-11-26] MEDS: LOVENOX 40 MG SC (17:06)
[2024-11-26] MEDS: FLUSH (NSS) 2 FLUSH IV (17:10)
[2024-11-26 21:01] LABS: Glucose - Point of Care 140 mg/dl (70-99)
[2024-11-26] MEDS: EFFEXOR XR 75 MG PO (21:39)
[2024-11-26] MEDS: KLONOPIN 0.5 MG PO (21:39)
[2024-11-26] MEDS: ZYPREXA 5 MG PO (21:40)
[2024-11-27 04:31] VITALS: BP 145/76
[2024-11-27] MEDS: SYNTHROID 75 MCG PO (05:51)
[2024-11-27 07:00] VITALS: BP 141/98
[2024-11-27 08:12] LABS: Glucose - Point of Care 136 mg/dl (70-99)
[2024-11-27] MEDS: LAMICTAL 200 MG PO ×2 (08:16→21:34)
[2024-11-27] MEDS: WELLBUTRIN SR (12 hour sustained release) 100 MG PO (08:16)
[2024-11-27] MEDS: FLORINEF 0.1 MG PO (08:18)
[2024-11-27] MEDS: CRESTOR 10 MG PO (08:19)
[2024-11-27] MEDS: RAZADYNE 8 MG PO ×2 (08:19→21:34)
[2024-11-27] MEDS: MYRBETRIQ EXTENDED RELEASE 50 MG PO (08:19)
[2024-11-27] MEDS: EFFEXOR XR 150 MG PO (08:19)
[2024-11-27] MEDS: FLOMAX 0.4 MG PO (08:19)
[2024-11-27] MEDS: LOW STRENGTH ASPIRIN 81 MG PO (08:19)
[2024-11-27] MEDS: METAMUCIL, KONSYL 1 PACKET PO (08:20)
[2024-11-27] MEDS: LINZESS 72 MCG PO (08:20)
[2024-11-27 08:36] LABS: Hemoglobin 10.6 g/dL (13.0-18.0); Mean Corp Hgb Conc. 34.2 g/dL (33.0-37.0); Mean Corpuscular Hgb 34.5 pg (27.0-31.0); Mean Platelet Volume 10.4 fL (7.4-10.4); Platelet Count 163 10^3/uL (130-400); Red Blood Cell Count 3.07 10^6/uL (4.70-6.10); Red Cell Dist. Width 13.2 % (11.5-14.5); White Blood Cell Count 4.9 10^3/uL (4.8-10.8)
[2024-11-27 08:46] LABS: Blood Urea Nitrogen 12 mg/dl (9-20); Calcium 9.8 mg/dl (8.4-10.2); Carbon Dioxide 29 mmol/L (22-30); Chloride 103 mmol/L (98-107); Estimated Creatinine Clearance 92 ml/min; Glucose 134 mg/dl (70-99); Potassium 3.8 mmol/L (3.5-5.1); Sodium 141 mmol/L (135-145); eGFR > 60.00
--- NOTE | 2024-11-27 10:53 | W.PN.HOSP.TC ---
Today's Communication/Plan
-
Pending discharge to SNF
IV ceftriaxone with OP transition to PO cefdinir suppressive therapy
Wean oxygen as possible
Assessment / Plan
Assessment / Plan
#Klebsiella oxytoca bacteremia
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
#S/p port removal
-SIRS criteria met, suspected secondary to infected Port however port tip culture negative
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
-Leukopenic upon admission, leukocytosis improving from 17.1 on 11/22-11.4, now WNL
-Repeat blood cultures on 11/22, port tip culture-s/p 24 hours-negative.
-CT abdomen and pelvis-no acute abnormalities noted;,TTE negative
-Repeat blood cultures have remained NGTD
-ID recommending 2 weeks of IV ceftriaxone with transition to cefdinir chronically
-Will continue to trend CBC and temperature curve on current regimen
-Plan for OP infectious disease follow-up in office
#Acute hypoxemic respiratory failure
#Suspected aspiration pneumonitis
-Upon presentation had metabolic encephalopathy due to infection, suspect he aspirated during this time
-Had leukocytosis and O2 requirements of up to 4 to 5 L, now without leukocytosis and down to 2 L O2
-Imaging here without any signs of consolidation or infection, has improved daily; VBG without hypercapnia
-Is currently on antibiotics as above, also currently receiving pulmonary toileting
-Continue to wean oxygen for SpO2 goal >90%
-Continue pulmonary toileting, encourage OOB
#CIDP
-Status post IVIG which he eventually developed reaction to; currently receiving Vyvgart infusions subcutaneous
-Received dose of Vyvgart on 11/25, will plan to continue with home supply when sent to [facility]
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
-Monitor clinically
#Primary Hypertension
#Orthostatic hypotension
-Currently not on antihypertensive regimen due to orthostasis
-Does take fludrocortisone chronically for his orthostatic state
-Currently without symptoms
#Benign prostatic hyperplasia
-Currently on tamsulosin and mirabegron.
-Continue home medications.
-Monitor for urinary retention.
#Bipolar disorder
#Anxiety
-Continue home meds of lamotrigine, olanzapine, Wellbutrin, and clonazepam.
#IBS
-On Linzess and bisacodyl; Also takes Metamucil.
-Continue home medication regimen
-Stable
#Gross hematuria on arrival without recurrence
-Will plan for OP urology follow-up at [place], consider cystoscopy
Diet- Regular
DVT prophylaxis- Lovenox SQ
CODE STATUS- DNR.
Medically stable for discharge to SNF once bed available
Anticipated Discharge: Within 24 hours
Subjective/Interval History
-
Date of Service: November 27, 2024
Seen and examined at the bedside. No acute events reported overnight. AFVSS this morning on 2 L O2 with SpO2 high 90s
Patient states he continues to feel well and has no complaints. Labs stable
Pending discharge to SNF when bed available
Objective Data
-
Labs:
Laboratory Results
11/27/24
07:47
WBC 4.9
Hgb 10.6 L
Hct 31.0 L
Plt Count 163
Sodium 141
Potassium 3.8
Chloride 103
Carbon Dioxide 29
BUN 12
Creatinine 0.8
Glucose 134 H
Calcium 9.8
Vital Signs:
Vital Signs
Temp Pulse Resp BP Pulse Ox
97.9 F 78 18 141/98 97
11/27/24 07:00 11/27/24 07:00 11/27/24 07:00 11/27/24 07:00 11/27/24 07:00
I&O
11/26/24 11/27/24 11/28/24
06:59 06:59 06:59
Intake Total 480 / 480 1740 / 1740
Output Total 2925 / 2925 3300 / 3300
Balance -2445 / -2445 -1560 / -1560
Review of Systems
-
History Source: Patient
All other systems: Reviewed and negative
Physical Exam
-
General: Well Developed, No Apparent Distress and Obese
HEENT: Normocephalic, Atraumatic, Anicteric and Oxygen
Respiratory: Clear to Auscultation and Non Labored Respirations; Negative Wheezes, Rales, Rhonchi or Accessory Resp Muscle Use
Cardiac: Regular Rhythm; Negative Murmur, Rub or Gallop
GI: Soft, Nontender, Nondistended and Normal Bowel Sounds
Musculoskeletal: No Clubbing, No Cyanosis and No Edema
Skin: Warm and Dry; Negative Rash
Neuro: AO x 3, Nonfocal/Grossly Intact, Central Nerve's Intact and Other (General weakness, nonfocal); Negative Tremors
Psych: Calm
Data Reviewed
-
Labs: Labs Reviewed by me and Discussed with Patient
[2024-11-27 11:00] VITALS: BP 140/75
[2024-11-27 11:22] LABS: % Basophils 0.4 % (0-2); % Eosinophils 2.2 % (0-6); % Immature Granulocytes 6.5 % (0-0.5); % Lymphocytes 44.1 % (20.5-51.1); % Monocytes 17.3 % (1.7-9.3); % Neutrophils 29.5 % (42.2-75.2); Absolute Eosinophils 0.1 10^3/uL (0-0.7); Absolute Immature Granulocytes 0.3 10^3/uL (0-0.05); Absolute Lymphocytes 2.2 10^3/uL (1.2-3.4); Absolute Monocytes 0.9 10^3/uL (0.1-0.6); Absolute Neutrophils 1.5 10^3/uL (1.4-6.5); Nucleated Red Blood Cells % 0 % (-)
[2024-11-27] MEDS: MIRALAX 17 GRAMS PO (12:13)
[2024-11-27 12:20] LABS: Glucose - Point of Care 185 mg/dl (70-99)
[2024-11-27 15:00] VITALS: BP 109/70
[2024-11-27] MEDS: ROCEPHIN 2000 MG IV (15:16)
[2024-11-27] MEDS: STERILE WATER FOR INJECTION 20 ML IV (15:16)
[2024-11-27 16:35] LABS: Glucose - Point of Care 145 mg/dl (70-99)
[2024-11-27] MEDS: LOVENOX 40 MG SC (17:28)
[2024-11-27 21:18] LABS: Glucose - Point of Care 135 mg/dl (70-99)
[2024-11-27] MEDS: EFFEXOR XR 75 MG PO (21:33)
[2024-11-27] MEDS: ZYPREXA 5 MG PO (21:33)
[2024-11-27] MEDS: KLONOPIN 0.5 MG PO (21:34)
[2024-11-27 23:38] VITALS: BP 134/74
[2024-11-28] MEDS: SYNTHROID 75 MCG PO (05:33)
[2024-11-28] MEDS: RAZADYNE 8 MG PO ×2 (07:53→20:04)
[2024-11-28] MEDS: MYRBETRIQ EXTENDED RELEASE 50 MG PO (07:53)
[2024-11-28 07:54] LABS: Glucose - Point of Care 147 mg/dl (70-99)
[2024-11-28] MEDS: FLOMAX 0.4 MG PO (07:54)
[2024-11-28] MEDS: LOW STRENGTH ASPIRIN 81 MG PO (07:54)
[2024-11-28] MEDS: CRESTOR 10 MG PO (07:54)
[2024-11-28] MEDS: METAMUCIL, KONSYL 1 PACKET PO (07:54)
[2024-11-28] MEDS: EFFEXOR XR 150 MG PO (07:54)
[2024-11-28] MEDS: FLORINEF 0.1 MG PO (07:55)
[2024-11-28] MEDS: WELLBUTRIN SR (12 hour sustained release) 100 MG PO (07:55)
[2024-11-28] MEDS: LINZESS 72 MCG PO (07:55)
[2024-11-28] MEDS: LAMICTAL 200 MG PO ×2 (08:02→20:04)
[2024-11-28 08:13] VITALS: BP 172/89
[2024-11-28] MEDS: TYLENOL 650 MG PO (08:13)
--- NOTE | 2024-11-28 09:41 | CM ---
Addendum entered by Lucina Perez 11/28/24 16:44:
Lady from [facility] unable to accept
Spoke with & she requested [facility] - entered in [facility]
PLAN: SNF, pending acceptance/bed availability
Original Note:
spoke with Ashleigh
No beds available at [facility] or [facility]
Called Lady at [facility] - she will get back to regarding bed availability
will await call back from Lady from [place]
no pre-auth
PLAN: SNF, pending bed availability
[2024-11-28] MEDS: MIRALAX 17 GRAMS PO (11:38)
[2024-11-28 11:56] LABS: Glucose - Point of Care 168 mg/dl (70-99)
--- NOTE | 2024-11-28 14:53 | W.PN.HOSP.TC ---
Addendum entered and electronically signed by Babar Peace MD 11/29/24 09:33:
79 male history of CIDP s/p IVIG, GERD, orthostatic hypotension, hypothyroidism, sleep apnea, bipolar disorder, BPH and hyperlipidemia presented with chills rigors and was febrile to 104. Found to have gram-negative bacteremia suspected secondary
to infected port. Started on cefepime. Speciation and sensitivities suggestive of Klebsiella oxytocin. Infectious diseases was consulted and eventually recommended to transition to Rocephin x 2 weeks followed by cefdinir 300 mg p.o. twice daily
for suppression given pacemaker.
GNR bacteremia/Klebsiella oxytoca
Continue Rocephin for total of 2 weeks via port followed by
Acute hypoxemic respiratory failure suspected to be related to aspiration pneumonitis. Continue pulmonary toilet encourage out of bed. Keep SpO2 greater than 90%. Wean oxygen as tolerated.
CIDP s/p IVIG. Awaiting family to bring in Vyvgart
Hypertension currently not on antihypertensive due to orthostasis.
Orthostatic hypotension continue Florinef
BPH continue tamsulosin and mirabegron. Monitor urinary retention
Bipolar disorder continue lamotrigine olanzapine Wellbutrin and clonazepam
IBS continue Linzess and bisacodyl
Gross hematuria on arrival without recurrence outpatient urology follow-up
DIspo SNF
Original Note:
Today's Communication/Plan
-
vyvgart
Continue ceftriaxone
Plan for discharge
Assessment / Plan
Assessment / Plan
Assessment- 79-year-old male with PMHx significant for CIDP s/p IVIG in the past, GERD, orthostatic hypotension, hypothyroid, JERMAINE, bipolar disorder, BPH, and hyperlipidemia is admitted to the hospital for evaluation of fever of unknown origin.
Plan-
Gram-negative bacteremia-
Upon admission SIRS criteria met but no sepsis with Klebsiella oxytocin blood.
S/p port removal, day 5.
Port tip culture negative.
Leukopenic upon admission, leukocytosis improving from 17.1 on 11/22-11.4 on 11/23
Repeat blood cultures on 11/22, port tip culture-s/p 24 hours-negative.
CT abdomen and pelvis-no acute abnormalities noted, source of sepsis unclear at this point
Blood cultures x 8-[id number] for gram-negative bacilli, Klebsiella oxytoca
Similar episode of sepsis in September, suspect secondary to port, ID recommended removal of port. Appreciate ID inputs.
Patient currently changed to ceftriaxone. appreciate ID inputs
Will switch to oral cefdinir after 2 weeks per ID recommendations.
Echocardiogram with no evidence for vegetations or valvular heart disease. EF within normal limits, no evidence for HFpEF or HFrEF.
Outpatient infectious disease follow-up within 6 months.
Acute hypoxemic respiratory failure-
Likely a confluence of CIDP related muscle weakness and aspiration pneumonitis.
Leukocytosis and O2 requirements up to 4 to 5 L, currently leukocytosis resolved no O2 requirement.
Antibiotics as above, VBG with no hypercapnia obtained on day of admission, no consolidation or infection on the chest x-ray improved.
Wean off oxygen as tolerated
Encourage incentive spirometry, continue pulmonary toileting and encourage ambulation and out of bed to prevent atelectasis.
CIDP-
IVIG discontinued as patient developed a reaction, currently receiving Vyvgart infusions
Last dose of Vyvgart on 11/18 before admission, due for Vyvgart on 11/25.
Vyvgart is known to cause hypogammaglobulinemia.
to bring Vyvgart injection prescribed on 11/25 today. Pharmacy figuring out the way to deliver drug to the patient. Suspect shortness of breath relieves after his with regard shot.
Hypertension-
Currently on fludrocortisone for orthostasis.
Not on any hypertensive medication given the orthostatic hypotension.
Currently no symptoms.
BPH-
Currently on tamsulosin and mirabegron, continue home meds
Bipolar disorder
On lamotrigine and olanzapine.
Generalized anxiety disorder-
Wellbutrin and clonazepam
IBS-
On Linzess and bisacodyl, also taking meds Metamucil
Continue his home regimen.
Hematuria-resolved
DVT prophylaxis-
Lovenox SQ
CODE STATUS-
DNR
Anticipated Discharge: Within 24 hours
Subjective/Interval History
-
Date of Service: November 28, 2024
Reports to be feeling weak in his legs and having shortness of breath.
Objective Data
-
Vital Signs:
Vital Signs
Temp Pulse Resp BP Pulse Ox
97.9 F 78 18 172/89 96
11/28/24 08:13 11/28/24 08:13 11/28/24 08:13 11/28/24 08:13 11/28/24 08:13
I&O
11/27/24 11/28/24 11/29/24
06:59 06:59 06:59
Intake Total 1740 / 1740 1020 / 1020 480 / 480
Output Total 3300 / 3300 2100 / 2100 1200 / 1200
Balance -1560 / -1560 -1080 / -1080 -720 / -720
Review of Systems
-
History Source: Patient
Constitutional: Reports No Symptoms
Respiratory: Reports Cough and Trouble Breathing
Cardiac: Reports No Symptoms
Abdomen/GI: Reports No Symptoms
Genitourinary: Reports No Symptoms
Musculoskeletal: Reports No Symptoms
Skin: Reports No Symptoms
Neuro: Reports Weakness
Hematologic / Lymphatic: Reports No Symptoms
Allergy / Immunology: Reports No Symptoms
Physical Exam
-
General: No Apparent Distress and Comfortable (On 1 L nasal cannula flow)
HEENT: Moist Mucous Membranes, Anicteric and [place] Conjunctivae
Respiratory: Clear to Auscultation and Crackles (In bilateral lower lobes); Negative Wheezes, Rales or Rhonchi
Cardiac: Regular Rhythm and S1/S2; Negative Murmur, Rub or Gallop
GI: Soft, Nontender, Nondistended and Normal Bowel Sounds
Musculoskeletal: No Clubbing, No Cyanosis and No Edema
Skin: Warm and Dry
Neuro: AO x 3 and No Motor Deficits
Hematologic / Lymphatic: No Lymphadenopathy
Psych: Calm
[2024-11-28 15:16] VITALS: BP 144/78; BP 150/75; PULSE 77; O2SAT 94
[2024-11-28 15:28] VITALS: BP 144/78; BP 150/75; PULSE 77; O2SAT 94
[2024-11-28] MEDS: STERILE WATER FOR INJECTION 20 ML IV (15:36)
[2024-11-28] MEDS: ROCEPHIN 2000 MG IV (15:36)
[2024-11-28 15:48] VITALS: BP 144/78
[2024-11-28 16:40] LABS: Glucose - Point of Care 134 mg/dl (70-99)
[2024-11-28] MEDS: LOVENOX 40 MG SC (17:33)
[2024-11-28] MEDS: EFFEXOR XR 75 MG PO (21:06)
[2024-11-28] MEDS: KLONOPIN 0.5 MG PO (21:07)
[2024-11-28] MEDS: ZYPREXA 5 MG PO (21:07)
[2024-11-28 21:37] LABS: Glucose - Point of Care 104 mg/dl (70-99)
[2024-11-28 23:00] VITALS: BP 161/74
[2024-11-29] MEDS: SYNTHROID 75 MCG PO (05:06)
[2024-11-29 05:42] LABS: Blood Urea Nitrogen 14 mg/dl (9-20); Calcium 9.5 mg/dl (8.4-10.2); Carbon Dioxide 28 mmol/L (22-30); Chloride 104 mmol/L (98-107); Estimated Creatinine Clearance 92 ml/min; Glucose 128 mg/dl (70-99); Potassium 3.8 mmol/L (3.5-5.1); Sodium 141 mmol/L (135-145); eGFR > 60.00
[2024-11-29 05:53] LABS: Hematocrit 32.3 % (39.0-52.0); Hemoglobin 10.8 g/dL (13.0-18.0); Mean Corp Hgb Conc. 33.4 g/dL (33.0-37.0); Mean Corpuscular Hgb 34.1 pg (27.0-31.0); Mean Corpuscular Volume 101.9 fL (80.0-94.0); Mean Platelet Volume 10.6 fL (7.4-10.4); Platelet Count 212 10^3/uL (130-400); Red Blood Cell Count 3.17 10^6/uL (4.70-6.10); Red Cell Dist. Width 13.5 % (11.5-14.5)
[2024-11-29 06:56] LABS: Absolute Neutrophils -Man Diff 1.6 10^3/uL (1.4-6.5); Band Neutrophils 1 % (0-3); Eosinophils 4 % (0-6); Lymphocytes 58 % (20-51); Monocytes 4 % (2-9); Segmented Neutrophils 27 % (42-75)
[2024-11-29 06:57] LABS: Macrocytosis 3+; Metamyelocytes 2 % (-); Myelocytes 4 % (-); Normal RBC Morphology No; Platelets Checked Yes; Total Cells Counted 100
[2024-11-29 07:30] VITALS: BP 156/85
[2024-11-29] MEDS: MYRBETRIQ EXTENDED RELEASE 50 MG PO (08:31)
[2024-11-29] MEDS: FLOMAX 0.4 MG PO (08:31)
[2024-11-29] MEDS: LAMICTAL 200 MG PO ×2 (08:31→19:47)
[2024-11-29] MEDS: CRESTOR 10 MG PO (08:31)
[2024-11-29] MEDS: FLORINEF 0.1 MG PO (08:31)
[2024-11-29] MEDS: LOW STRENGTH ASPIRIN 81 MG PO (08:31)
[2024-11-29] MEDS: WELLBUTRIN SR (12 hour sustained release) 100 MG PO (08:31)
[2024-11-29] MEDS: EFFEXOR XR 150 MG PO (08:31)
[2024-11-29] MEDS: RAZADYNE 8 MG PO ×2 (08:31→19:47)
[2024-11-29] MEDS: METAMUCIL, KONSYL 1 PACKET PO (08:32)
[2024-11-29 08:38] LABS: Glucose - Point of Care 135 mg/dl (70-99)
[2024-11-29] MEDS: LINZESS 72 MCG PO (12:10)
[2024-11-29] MEDS: MIRALAX 17 GRAMS PO (12:10)
[2024-11-29 12:23] LABS: Glucose - Point of Care 168 mg/dl (70-99)
--- NOTE | 2024-11-29 14:22 | W.PN.HOSP.TC ---
Addendum entered and electronically signed by Babar Peace MD 11/29/24 15:17:
79 male history of CIDP s/p IVIG, GERD, orthostatic hypotension, hypothyroidism, sleep apnea, bipolar disorder, BPH and hyperlipidemia presented with chills rigors and was febrile to 104. Found to have gram-negative bacteremia suspected secondary
to infected port. Started on cefepime. Speciation and sensitivities suggestive of Klebsiella oxytocin. Infectious diseases was consulted and eventually recommended to transition to Rocephin x 2 weeks followed by cefdinir 300 mg p.o. twice daily
for suppression given pacemaker.
GNR bacteremia/Klebsiella oxytoca
Continue Rocephin for total of 2 weeks via port followed by
Acute hypoxemic respiratory failure suspected to be related to aspiration pneumonitis. Continue pulmonary toilet encourage out of bed. Keep SpO2 greater than 90%. Wean oxygen as tolerated.
CIDP s/p IVIG. Awaiting family to bring in [employer] [facility]
Hypertension currently not on antihypertensive due to orthostasis.
Orthostatic hypotension continue Florinef
BPH continue tamsulosin and mirabegron. Monitor urinary retention
Bipolar disorder continue lamotrigine olanzapine Wellbutrin and clonazepam
IBS continue Linzess and bisacodyl
Gross hematuria on arrival without recurrence outpatient urology follow-up
Dispo SNF
Original Note:
Today's Communication/Plan
-
Midline in place, currently on ceftriaxone.
Plan for discharge.
Assessment / Plan
Assessment / Plan
Assessment- 79-year-old male with PMHx significant for CIDP s/p IVIG in the past, GERD, orthostatic hypotension, hypothyroid, JERMAINE, bipolar disorder, BPH, and hyperlipidemia is admitted to the hospital for evaluation of fever of unknown origin.
Plan-
Gram-negative bacteremia-
Upon admission SIRS criteria met but no sepsis with Klebsiella oxytocin blood.
S/p port removal, day 5.
Port tip culture negative. Midline in place
Leukopenic upon admission, leukocytosis improving from 17.1 on 11/22-11.4 on 11/23
Repeat blood cultures on 11/22, port tip culture-s/p 24 hours-negative.
CT abdomen and pelvis-no acute abnormalities noted, source of sepsis unclear at this point
Blood cultures x 2-[id number] for gram-negative bacilli, Klebsiella oxytoca
Similar episode of sepsis in September, suspect secondary to port, ID recommended removal of port. Appreciate ID inputs.
Patient currently changed to ceftriaxone. appreciate ID inputs
Will switch to oral cefdinir after 2 weeks per ID recommendations.
Echocardiogram with no evidence for vegetations or valvular heart disease. EF within normal limits, no evidence for HFpEF or HFrEF.
Outpatient infectious disease follow-up within 6 months.
Acute hypoxemic respiratory failure-
Likely a confluence of CIDP related muscle weakness and aspiration pneumonitis.
Leukocytosis and O2 requirements up to 4 to 5 L, currently leukocytosis resolved no O2 requirement.
Antibiotics as above, VBG with no hypercapnia obtained on day of admission, no consolidation or infection on the chest x-ray improved.
Wean off oxygen as tolerated
Encourage incentive spirometry, continue pulmonary toileting and encourage ambulation and out of bed to prevent atelectasis.
CIDP-
IVIG discontinued as patient developed a reaction, currently receiving Vyvgart infusions
Last dose of Vyvgart on 11/18 before admission, due for Vyvgart on 11/25.
Vyvgart is known to cause hypogammaglobulinemia.
to bring Vyvgart injection prescribed on 11/25 today. Pharmacy figuring out the way to deliver drug to the patient. Suspect shortness of breath relieves after his with regard shot.
Hypertension-
Currently on fludrocortisone for orthostasis.
Not on any hypertensive medication given the orthostatic hypotension.
Currently no symptoms.
BPH-
Currently on tamsulosin and mirabegron, continue home meds
Bipolar disorder
On lamotrigine and olanzapine.
Generalized anxiety disorder-
Wellbutrin and clonazepam
IBS-
On Linzess and bisacodyl, also taking meds Metamucil
Continue his home regimen.
Hematuria-resolved
DVT prophylaxis-
Lovenox SQ
CODE STATUS-
DNR
Anticipated Discharge: Within 24 hours
Subjective/Interval History
-
Date of Service: November 29, 2024
Not on oxygen, no shortness of breath after receiving his Vyvgart shot.
Objective Data
-
Labs:
Laboratory Results
11/29/24
05:02
WBC 6.0
Hgb 10.8 L
Hct 32.3 L
Plt Count 212 D
Sodium 141
Potassium 3.8
Chloride 104
Carbon Dioxide 28
BUN 14
Creatinine 0.8
Glucose 128 H
Calcium 9.5
Vital Signs:
Vital Signs
Temp Pulse Resp BP Pulse Ox
97.5 F 80 18 156/85 92
11/29/24 07:30 11/29/24 07:30 11/29/24 07:30 11/29/24 07:30 11/29/24 07:30
I&O
11/28/24 11/29/24 11/30/24
06:59 06:59 06:59
Intake Total 1020 / 1020 1080 / 1080
Output Total 2099 / 2099 1700 / 1700 1000 / 1000
Balance -1080 / -1080 -620 / -620 -1000 / -1000
Review of Systems
-
History Source: Patient
All other systems: Reviewed and negative
Physical Exam
-
General: No Apparent Distress and Comfortable
HEENT: Moist Mucous Membranes
Respiratory: Clear to Auscultation and Crackles (Faint bilateral lower lobe); Negative Wheezes, Rales or Rhonchi
Cardiac: Regular Rhythm and S1/S2; Negative Murmur, Rub or Gallop
GI: Soft, Nontender, Nondistended and Normal Bowel Sounds
Skin: Warm
Neuro: AO x 3 and No Motor Deficits
Psych: Calm
[2024-11-29] MEDS: ROCEPHIN 2000 MG IV (15:39)
[2024-11-29] MEDS: STERILE WATER FOR INJECTION 20 ML IV (15:40)
--- NOTE | 2024-11-29 15:44 | CM ---
Patient seen at bedside with
[facility] accepted, but no bed available today
CM to call in am for possible bed tomorrow
discussed with alternative SNF options of [facility]
PLAN: SNF with IV antibiotic, pending bed availability
[2024-11-29 16:00] VITALS: BP 127/78
[2024-11-29 16:49] LABS: Glucose - Point of Care 181 mg/dl (70-99)
[2024-11-29] MEDS: LOVENOX 40 MG SC (17:37)
[2024-11-29] MEDS: KLONOPIN 0.5 MG PO (21:00)
[2024-11-29] MEDS: EFFEXOR XR 75 MG PO (21:00)
[2024-11-29] MEDS: ZYPREXA 5 MG PO (21:00)
[2024-11-29 21:20] LABS: Glucose - Point of Care 145 mg/dl (70-99)
[2024-11-29 23:00] VITALS: BP 156/86
[2024-11-30] MEDS: SYNTHROID 75 MCG PO (05:01)
[2024-11-30 07:34] VITALS: BP 165/85
[2024-11-30 07:49] LABS: Glucose - Point of Care 137 mg/dl (70-99)
[2024-11-30] MEDS: LAMICTAL 200 MG PO (08:16)
[2024-11-30] MEDS: MYRBETRIQ EXTENDED RELEASE 50 MG PO (08:16)
[2024-11-30] MEDS: LOW STRENGTH ASPIRIN 81 MG PO (08:16)
[2024-11-30] MEDS: FLOMAX 0.4 MG PO (08:16)
[2024-11-30] MEDS: CRESTOR 10 MG PO (08:16)
[2024-11-30] MEDS: LINZESS 72 MCG PO (08:16)
[2024-11-30] MEDS: RAZADYNE 8 MG PO (08:16)
[2024-11-30] MEDS: FLORINEF 0.1 MG PO (08:16)
[2024-11-30] MEDS: METAMUCIL, KONSYL 1 PACKET PO (08:16)
[2024-11-30] MEDS: EFFEXOR XR 150 MG PO (08:16)
[2024-11-30] MEDS: WELLBUTRIN SR (12 hour sustained release) 100 MG PO (08:16)
--- NOTE | 2024-11-30 09:23 | CM ---
Addendum entered by Lucina Perez 11/30/24 09:47:
IMM explained & signed. In chart
Addendum entered by Lucina Perez 11/30/24 09:33:
script for IV ceftriaxone & midline information attached in careport
Original Note:
No bed at [facility]
Bed available at [facility] per [place] liaison
updated careport
spoke with agreeable
tt hospitalist - does not need iso bed
PLAN: [facility]
Report #: [phone]
Fax #: [phone]
transportation forms in chart
[2024-11-30] MEDS: MIRALAX 17 GRAMS PO (11:16)
[2024-11-30 11:48] LABS: Glucose - Point of Care 172 mg/dl (70-99)
[2024-11-30] MEDS: ROCEPHIN 2000 MG IV (12:19)
[2024-11-30 14:00] VITALS: BP 149/79
--- NOTE | 2024-11-30 14:15 | W.PN.HOSP.TC ---
Addendum entered and electronically signed by Babar Peace MD 12/01/24 15:41:
79 male history of CIDP s/p IVIG, GERD, orthostatic hypotension, hypothyroidism, sleep apnea, bipolar disorder, BPH and hyperlipidemia presented with chills rigors and was febrile to 104. Found to have gram-negative bacteremia suspected secondary
to infected port. Started on cefepime. Speciation and sensitivities suggestive of Klebsiella oxytocin. Infectious diseases was consulted and eventually recommended to transition to Rocephin x 2 weeks followed by cefdinir 300 mg p.o. twice daily
for suppression given pacemaker.
GNR bacteremia/Klebsiella oxytoca
Continue Rocephin for total of 2 weeks via port followed by
Acute hypoxemic respiratory failure suspected to be related to aspiration pneumonitis. Continue pulmonary toilet encourage out of bed. Keep SpO2 greater than 90%. Wean oxygen as tolerated.
CIDP s/p IVIG. [facility]
Hypertension currently not on antihypertensive due to orthostasis.
Orthostatic hypotension continue Florinef
BPH continue tamsulosin and mirabegron. Monitor urinary retention
Bipolar disorder continue lamotrigine olanzapine Wellbutrin and clonazepam
IBS continue Linzess and bisacodyl
Gross hematuria on arrival without recurrence outpatient urology follow-up
Dispo SNF
Original Note:
Today's Communication/Plan
-
Plan for discharge on ceftriaxone, cefdinir prescription sent to pharmacy
Assessment / Plan
Assessment / Plan
Assessment- 79-year-old male with PMHx significant for CIDP s/p IVIG in the past, GERD, orthostatic hypotension, hypothyroid, JERMAINE, bipolar disorder, BPH, and hyperlipidemia is admitted to the hospital for evaluation of fever of unknown origin.
Plan-
Gram-negative bacteremia-
Upon admission SIRS criteria met but no sepsis with Klebsiella oxytocin blood.
S/p port removal, day 5.
Port tip culture negative. Midline in place
Leukopenic upon admission, leukocytosis improving from 17.1 on 11/22-11.4 on 11/23
Repeat blood cultures on 11/22, port tip culture-s/p 24 hours-negative.
CT abdomen and pelvis-no acute abnormalities noted, source of sepsis unclear at this point
Blood cultures x 8-[id number] for gram-negative bacilli, Klebsiella oxytoca
Similar episode of sepsis in September, suspect secondary to port, ID recommended removal of port. Appreciate ID inputs.
Patient currently changed to ceftriaxone. appreciate ID inputs
Will switch to oral cefdinir after 2 weeks per ID recommendations.
Echocardiogram with no evidence for vegetations or valvular heart disease. EF within normal limits, no evidence for HFpEF or HFrEF.
Outpatient infectious disease follow-up within 6 months.
Acute hypoxemic respiratory failure-
Likely a confluence of CIDP related muscle weakness and aspiration pneumonitis.
Leukocytosis and O2 requirements up to 4 to 5 L, currently leukocytosis resolved no O2 requirement.
Antibiotics as above, VBG with no hypercapnia obtained on day of admission, no consolidation or infection on the chest x-ray improved.
Wean off oxygen as tolerated
Encourage incentive spirometry, continue pulmonary toileting and encourage ambulation and out of bed to prevent atelectasis.
CIDP-
IVIG discontinued as patient developed a reaction, currently receiving Vyvgart infusions
Last dose of Vyvgart on 11/18 before admission, due for Vyvgart on 11/25.
Vyvgart is known to cause hypogammaglobulinemia.
to bring Vyvgart injection prescribed on 11/25 today. Pharmacy figuring out the way to deliver drug to the patient. Suspect shortness of breath relieves after his with regard shot.
Hypertension-
Currently on fludrocortisone for orthostasis.
Not on any hypertensive medication given the orthostatic hypotension.
Currently no symptoms.
BPH-
Currently on tamsulosin and mirabegron, continue home meds
Bipolar disorder
On lamotrigine and olanzapine.
Generalized anxiety disorder-
Wellbutrin and clonazepam
IBS-
On Linzess and bisacodyl, also taking meds Metamucil
Continue his home regimen.
Hematuria-resolved
DVT prophylaxis-
Lovenox SQ
CODE STATUS-
DNR
Anticipated Discharge: Today
Subjective/Interval History
-
Date of Service: November 30, 2024
No symptoms today.
Objective Data
-
Vital Signs:
Vital Signs
Temp Pulse Resp BP Pulse Ox
98.0 F 80 17 165/85 94
11/30/24 07:34 11/30/24 07:34 11/30/24 07:34 11/30/24 07:34 11/30/24 07:34
I&O
11/29/24 11/30/24 12/01/24
06:59 06:59 06:59
Intake Total 1080 / 1080 1440 / 1440
Output Total 1700 / 1700 3500 / 3500
Balance -620 / -620 -2059 / -2059
Review of Systems
-
History Source: Patient
All other systems: Reviewed and negative
Physical Exam
-
General: No Apparent Distress and Comfortable
HEENT: Moist Mucous Membranes
Respiratory: Clear to Auscultation and Crackles (Faint crackles in bilateral lower lobes); Negative Wheezes, Rales or Rhonchi
Cardiac: Regular Rhythm and S1/S2; Negative Murmur, Rub or Gallop
GI: Soft, Nontender, Nondistended and Normal Bowel Sounds
Musculoskeletal: No Clubbing, No Cyanosis and No Edema
Neuro: AO x 3 and No Motor Deficits
Psych: Calm
--- NOTE | 2024-11-30 16:10 | W.DCSUMMARY ---
Discharge Summary
Discharge Data
Date of Admission: 11/21/24
Date of Discharge: 11/30/24
-
Pending Results: No
Hospital Course
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
evaluation of fever of unknown origin.
PCP-Aleks Maldonado MD
Hospital course -
Getting the 9-day hospital close, patient was initially thought to have met the SIRS criteria with no active sepsis and elevated lactate levels. He was found to be leukopenic upon admission that quickly turned into leukocytosis overnight. His
blood cultures came back positive for Klebsiella oxytocin bacteremia, his vancomycin was discontinued and he was started on cefepime, continued to remain on cefepime. Infectious disease was consulted to identify the source of his Klebsiella oxytoca
bacteremia, ID recommended removal of his port as this is a recurrent episode after August 2024. Port was removed and the port catheter tip was sent to culture, port catheter tip did not yield any growth. Repeat blood cultures obtained on 11/12:14
days of antibiotic course turned out to be negative. Patient was transition from cefepime to IV ceftriaxone based on cultural sensitivities. An echocardiogram was obtained to rule out infectious endocarditis, no valvular disease was identified on
echocardiogram or no vegetations are noted. MICHELLE was recommended if clinical suspicion is high but clinical suspicion is not high. However ID could not rule out the possibility of pacemaker as source of infection. Hence patient was placed on IV
ceftriaxone for 14 days through 12/07/2024, and then is transitioned to cefdinir 300 mg twice a day thereafter until seen by infectious disease in outpatient.
Patient is recommended to follow-up with Dr. Justice, infectious disease doctor in 6 months, he continues to remain on cefdinir for 6 months.
During the hospital stay, patient also had an episode of shortness of breath likely secondary from his CIDP, patient stated that it is not unusual for him to have shortness of breath when he is due for his Vyvgart shot, hence patient got his baby
got shot on Thursday even though it was ordered on 11/25/2024
Through 11/25/2024 to 11/30/2024, patient continued to receive IV ceftriaxone while waiting for placement at SNF. PT and OT worked with the patient all through this 5 days\\
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
GERD, hypothyroidism, BPH, hyperlipidemia or managed by his home medications. No changes were made to his home medication regimen.
Medication changes -
IV ceftriaxone through 12/07/2024.
Cefdinir 300 mg twice a day beginning 12/08/2024.
Discharge Plan
-
Patient Disposition: Group Home/SNF
Discharge Diagnosis/Procedures: Fever of unknown origin, Klebsiella oxytoca bacteremia.
Condition: Fair
Diet: As tolerated and Low Cholesterol
Activity: No restrictions
Driving Restrictions: As prior to admission
Bathing Restrictions: None
Activity Restrictions/Additional Instructions:
Ceftriaxone stop date-12/07/2024.
You are on cefdinir beginning 12/08/2024 for next 6 months.
Follow-up with Dr. Justice, infectious disease doctor in 6 months.
Referrals:
Peyman Moore DO [Family Provider] -
Bobbi Justice MD [Active] - (In 6 months.)
Prescriptions:
New
Metamucil Fiber Singles 3.4 gram Powder In Packet
1 packet PO DAILY Qty: 30 0RF
cefdinir 300 mg Capsule
300 mg PO Q12 30 Days Qty: 60 2RF
ceftriaxone 2 gram Recon Soln
2,000 mg IV Q24H 7 Days Qty: 0 0RF
Continued
olanzapine 5 MG tablet
5 mg PO HS
galantamine 8 MG tablet
8 mg PO HS
omega-3 fatty acids-fish oil 1 EACH capsule
1 ea PO DAILY
venlafaxine [Effexor XR] 150 MG capsule,extended release 24hr
150 mg PO DAILY
bupropion HCl 100 MG tablet sustained-release 12 hr
100 mg PO BID
fludrocortisone 0.1 MG tablet
0.1 mg PO DAILY
rosuvastatin 10 MG tablet
10 mg PO DAILY
clonazepam 0.5 MG tablet
0.5 mg PO HS
aspirin 81 MG tablet,chewable
81 mg PO DAILY 0RF
polyethylene glycol 3350 17 GRAMS powder in packet
17 grams PO DAILY Qty: 30 0RF
venlafaxine 75 mg Capsule,Extended Release 24hr
75 mg PO HS
lamotrigine 200 mg Tablet
200 mg PO BID
clonazepam 0.5 mg Tablet
0.5 mg PO DAILYPRN PRN (Reason: anxiety)
Rx Instructions:
may take after 09/25/23 at 11:40 am if needed
therapeutic multivitamin Tablet
1 tab PO DAILY
mirabegron [Myrbetriq] 50 mg Tablet Extended Release 24 Hr
50 mg PO DAILY
levothyroxine 75 mcg Tablet
75 mcg PO DAILY
Linzess 72 mcg Capsule
72 mcg PO DAILY
tamsulosin 0.4 MG capsule
0.4 mg PO DAILY
meloxicam 7.5 mg Tablet
15 mg PO DAILY
venlafaxine [Effexor XR] 37.5 mg Capsule,Extended Release 24hr
37.5 mg PO HS
psyllium Packet
1 packet PO DAILY
docusate sodium [Colace] 100 mg Capsule
100 mg PO DAILY
potassium chloride 20 mEq Tablet Extended Release
20 meq PO MOTH
Vyvgart Hytrulo 1,008 mg-11,200 unit/5.6 mL Solution
5.6 ml SC TH Qty: 0 0RF
Discharge Orders:
Discharge Patient (As Directed); Ordered 11/30/24
Ordered By: Doreen Louis
Discharge Date and Time
Discharge Date/Time: 11/30/24 14:27
Print Language: RUSSIAN
== END 2024-11-30 14:27 | DRG 314 ==
LOC: 3 WEST ACU 20:51
PROVIDERS: Emergency Medicine; Internal Medicine; Nurse Practitioner; Nurse Practitioner Gerontology; Radiology Vascular & Interventional Radiology; Student in an Organized Health Care Education/Training Program; ADMITTING PHYSICIAN Internal Medicine; ATTENDING PHYSICIAN Hospitalist; EMERGENCY PHYSICIAN Student in an Organized Health Care Education/Training Program; FAMILY PHYSICIAN Family Medicine; OTHER PHYSICIAN Student in an Organized Health Care Education/Training Program
PROC: 0WP803Z Removal of Infusion Device from Chest Wall, Open Approach (ICD-10-PCS; 2024-11-22)
DX: T82.7XXA Infection and inflammatory reaction due to other cardiac and vascular devices, implants and grafts, initial encounter (principal); G93.41 Metabolic encephalopathy; J96.01 Acute respiratory failure with hypoxia; F03.93 Unspecified dementia, unspecified severity, with mood disturbance; F03.94 Unspecified dementia, unspecified severity, with anxiety; R78.81 Bacteremia; G61.81 Chronic inflammatory demyelinating polyneuritis; Z11.52 Encounter for screening for COVID-19; B96.1 Klebsiella pneumoniae [K. pneumoniae] as the cause of diseases classified elsewhere; K21.9 Gastro-esophageal reflux disease without esophagitis; I95.1 Orthostatic hypotension; E03.9 Hypothyroidism, unspecified; G47.33 Obstructive sleep apnea (adult) (pediatric); F31.9 Bipolar disorder, unspecified; N40.0 Benign prostatic hyperplasia without lower urinary tract symptoms; E78.5 Hyperlipidemia, unspecified; D72.819 Decreased white blood cell count, unspecified; I10 Essential (primary) hypertension; K58.9 Irritable bowel syndrome, unspecified; Z66 Do not resuscitate; E11.9 Type 2 diabetes mellitus without complications; J45.909 Unspecified asthma, uncomplicated; Z79.82 Long term (current) use of aspirin; Z79.890 Hormone replacement therapy; Z79.899 Other long term (current) drug therapy; Z87.891 Personal history of nicotine dependence; Z95.0 Presence of cardiac pacemaker; Y71.2 Prosthetic and other implants, materials and accessory cardiovascular devices associated with adverse incidents
CPT/HCPCS: 93308; 36590; 71046; 71260; 74022; 74177; 74230; 77001; 80048; 80053; 80202; 81003; 81015; 82550; 82570; 82607; 82746; 82805; 82962; 82977; 83010; 83605; 83615; 83690; 83735; 83880; 84300; 84450; 84460; 85025; 85027; 87040; 87077; 87084; 87086; 87147; 87149; 87186; 87205; 87502; 87811; 92610; 92611; 93005; 93321; 93325; 96523; 97110; 97116; 97163; 97167; 97530; 97535; Q9967

== ENCOUNTER → 2025-05-22 08:34 | Outpatient (REF) | payer MEDICARE, OTHER, SELFPAY ==
[2025-05-22 09:53] LABS: Hematocrit 37.6 % (39.0-52.0); Hemoglobin 12.2 g/dL (13.0-18.0); Mean Corp Hgb Conc. 32.4 g/dL (33.0-37.0); Mean Corpuscular Volume 101.9 fL (80.0-94.0); Nucleated Red Blood Cells % 0 % (-); Platelet Count 183 10^3/uL (130-400); Red Cell Dist. Width 12.8 % (11.5-14.5)
[2025-05-22 10:44] LABS: ALT (SGPT) 19 U/L (0-50); AST (SGOT) 22 U/L (17-59); Albumin 5.2 g/dl (3.5-5.0); Alkaline Phosphatase 74 U/L (38-126); Blood Urea Nitrogen 18 mg/dl (9-20); Calcium 9.9 mg/dl (8.4-10.2); Carbon Dioxide 27 mmol/L (22-30); Chloride 101 mmol/L (98-107); Glucose 140 mg/dl (70-99); HDL Cholesterol 48 mg/dl; LDL Cholesterol, Calculated 56 mg/dl; Potassium 4.3 mmol/L (3.5-5.1); Sodium 138 mmol/L (135-145); Total Protein 7.9 g/dl (6.3-8.2); Very Low Density Lipoprotein 50 mg/dl (0-30); eGFR > 60.00
[2025-05-22 10:46] LABS: TSH 4.83 uIU/ml (0.47-4.68)
[2025-05-22 13:14] LABS: Glycohemoglobin (HgbA1c) 6.2 % (4.0-5.9)
== END ==
LOC: HWLAB 08:34
PROVIDERS: ATTENDING PHYSICIAN Family Medicine
DX: E03.9 Hypothyroidism, unspecified (principal); E78.2 Mixed hyperlipidemia; R73.03 Prediabetes; N40.0 Benign prostatic hyperplasia without lower urinary tract symptoms
CPT/HCPCS: 36415; 80053; 80061; 83036; 84153; 84154; 84439; 84443; 85025